=== PATIENT | female | born 1930 | race Caucasian/White ===

== ENCOUNTER 2018-09-22 04:17 | Inpatient (IN) | payer OTHER | END 2018-09-28 20:15 | disposition home or self-care (01) | LOC: JER 04:17 → JERBED 06:56 → J4W 21:38 ==

== ENCOUNTER 2018-11-05 04:13 | Emergency (ER) | payer OTHER | END 2018-11-05 16:53 | disposition home or self-care (01) | LOC: JER 04:13 ==

== ENCOUNTER 2018-11-11 23:39 | Inpatient (IN) | payer OTHER ==
--- NOTE | 2018-11-12 03:19 | PDOC ---
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 Patient states her severe lower back pain began yesterday. Patient also states she has never experienced pain this severe in the past. She also endorses multiple sensory abnormalities in her right leg. The patient denies any fevers or trauma. She denies any difficulty controlling her bowel or bladder. PCP: Sidney Rasheed PSH: Left Knee surgery Allergies: NKA, NKDA Social Hx: Denies smoking, drinking, or other substance usage. Past History - Past Medical History Allergies/Adverse Reactions: Allergies Allergy/AdvReac Type Severity Reaction Status Date / Time No Known Allergies Allergy Verified 11/12/18 01:34 Home Medications: Ambulatory Orders Alendronate Sodium [Binosto] 70 mg PO WEEKLY 09/22/18 Calcium Carbonate/Vitamin D3 [Calcium 600 + Vit D Tablet] 1 each PO BID Cyanocobalamin [Vitamin B12 -] 1,000 mcg PO DAILY 09/22/18 Fenofibrate Nanocrystallized [Fenofibrate] 48 mg PO DAILY 09/22/18 Omeprazole 20 mg PO DAILY 09/22/18 Pravastatin Sodium [Pravachol -] 80 mg PO HS 09/22/18 Amlodipine Besylate [Norvasc -] 10 mg PO DAILY tablet 09/26/18 Aspirin Coated [Ecotrin -] 81 mg PO DAILY tablet.ec 09/26/18 Glyburide [Micronase -] 5 mg PO DAILY@0700 tablet 09/26/18 Levothyroxine [Synthroid -] 25 mcg PO DAILY@0700 tablet 09/26/18 Furosemide [Lasix -] 20 mg PO ASDIR 11/05/18 Hydralazine HCl 50 mg PO TID 11/05/18 COPD: No Diabetes: Yes GI Disorders: Yes (GERD) HTN: Yes Hypercholesterolemia: Yes Thyroid Disease: Yes (Hypothyroidism) - Surgical History Orthopedic Surgery: Yes (L knee Replacement) - Suicide/Smoking/Psychosocial Hx Smoking History: Never smoked Have you smoked in the past 12 months: No If you are a former smoker, when did you quit?: 25 years ago 'Breaking Loose' booklet given: 09/22/18 Hx Alcohol Use: No Drug/Substance Use Hx: No Hx Substance Use Treatment: No Review of Systems - Review of Systems Able to Perform ROS?: Yes Comments:: CONSTITUTIONAL: Absent: fever, no chills, no fatigue EYES: Absent: visual changes ENT: Absent: ear pain, no sore throat CARDIOVASCULAR: Absent: chest pain, no palpitations RESPIRATORY: Absent: cough, no SOB GI: Absent: abdominal pain, no nausea, no vomiting, no constipation, no diarrhea GENITOURINARY: Absent: dysuria, no frequency, no hematuria MUSKULOSKELETAL: Present: Back pain Absent: no arthralgia, no myalgia SKIN: Absent: rash NEURO: Absent: headache *Physical Exam - Vital Signs Last Vital Signs Temp Pulse Resp BP Pulse Ox 97.8 F 93 H 23 H 113/69 96 11/11/18 23:55 11/11/18 23:55 11/11/18 23:55 11/11/18 23:55 11/11/18 23:55 - Physical Exam Comments: GENERAL: Patient is lying in the bed but is sad and has a significant amount of pain. HEENT: Normocephalic, atraumatic. PERRL, EOM intact. CARDIOVASCULAR: Normal S1, S2. Regular rate and rhythm. PULMONARY: Mild evidence of respiratory distress. Lungs clear to auscultation bilaterally. No wheezing, rales or rhonchi. ABDOMEN: Soft, non-distended, non-tender. EXTREMITIES: Normal ROM in all four extremities. No gross deformities. SKIN: Warm, dry. No rash NEUROLOGICAL: Alert, awake, appropriate. Cranial nerves 2-12 intact. No deficits to light touch in face and upper extremities. The patient has decreased sensation in her right leg. No motor deficits in the in face, upper extremities and lower extremities. Normal speech. Toes are down-going bilaterally. Rectal Exam: positive: normal rectal tone ED Treatment Course - LABORATORY CBC & Chemistry Diagram: 11/12/18 04:15 11/12/18 04:15 - RADIOLOGY Radiograph Interpretation: Pelvis CT: EXAM: PELVIS CT WITHOUT CONTRAST HISTORY: Trauma COMPARISON: None. FINDINGS: The pelvic small small bowel is normal. Colonic diverticulosis is noted without diverticulitis The appendix is normal. The uterus and adnexal structures are normal. Urinary bladder is unremarkable. There is no pelvic free fluid. No discrete pelvic lymphadenopathy is identified. There is no fracture. No soft tissue hematoma. There is severe osteoarthritis of the right hip mild to moderate osteoporosis of the left hip. The osseous pubis is noted. There are prominent degenerative changes of the lumbar spine and sacroiliac joints. IMPRESSION: No fracture Lumbar CT: EXAM: LUMBAR SPINE CT W/O CONTRAST HISTORY: Rule out fracture COMPARISON: None. FINDINGS: There is no fracture or paraspinal hematoma. Multilevel moderate degenerative changes are noted with mild degenerative listheses. There is mild bilateral neuroforaminal narrowing at L4-5 level secondary to facet joint arthrosis and geometric distortion from a anterolisthesis. There is mild central canal narrowing and moderate bilateral neural from narrowing of L5/S1 level due to bulging disc osteophyte complex, facet joint arthrosis and geometric distortion from an anterolisthesis. 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 IMPRESSION: No fracture. 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 Patient states her severe lower back pain began yesterday. Patient also states she has never experienced pain this severe in the past. She also endorses multiple sensory abnormalities in her right leg. The patient denies any fevers or trauma. She denies any difficulty controlling her bowel or bladder. Vital Signs Temp Pulse Resp BP Pulse Ox 97.8 F 93 H 23 H 113/69 96 11/11/18 23:55 11/11/18 23:55 11/11/18 23:55 11/11/18 23:55 11/11/18 23:55 - Patient appears to be in her standard respiratory state. She reports that she always needs oxygen to have a good saturation. DDx IBNLT: Lumbar vs sacral vertebral fx, hip fx, compressed nerve, cauda equina /conus medularis. Plan: Labs, Urine, CT, XR, analgesia, re-assess. Labs show CKD which appears to be at her baseline. Urine: Clean CT Pelvis: There is severe osteoarthritis of the right hip - No acute fx CT Lumbar: Multilevel moderate degenerative changes are noted with mild degenerative listheses. There is mild bilateral neuroforaminal narrowing at L4-5 level secondary to facet joint arthrosis and geometric distortion from a anterolisthesis. There is mild central canal narrowing and moderate bilateral neural from narrowing of L5/S1 level due to bulging disc osteophyte complex, facet joint arthrosis and geometric distortion from an anterolisthesis. 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 IMPRESSION: No fracture. Disposition: Admit to hospital for inability to ambulate, social work consult, Lumbar/pelvis MRI and pain control. - Call placed to Dr. Rasheed's service for admission at 6:30 am - Service said they will call us back. - Signing out patient to Dr. Jaime to give report to Dr. Rasheed and complete admission to the hospital. *DC/Admit/Observation/Transfer Diagnosis at time of Disposition: Inability to ambulate due to right hip Lower back pain Qualifiers: Chronicity: acute Back pain laterality: right Sciatica presence: with sciatica Sciatica laterality: sciatica of right side Qualified Code(s): M54.41 - Lumbago with sciatica, right side - Discharge Dispostion Condition at time of disposition: Stable Decision to Admit order: Yes - Referrals Referrals: Sidney Rasheed RES [Primary Care Provider] - - Patient Instructions - Post Discharge Activity
[2018-11-12] MEDS ORDERED: LIDOCAINE 5% TOPICAL PATCH TP ONE (03:28)
[2018-11-12] MEDS ORDERED: ACETAMINOPHEN 1000 MG/100 ML VIAL (NON FORMULARY) IVPB ONE (03:28)
[2018-11-12] MEDS ORDERED: ACETAMINOPHEN INJECTION 100 ML IVPB ONE (04:00)
[2018-11-12] MEDS ORDERED: LIDOCAINE 5% TOPICAL PATCH ONE (04:01)
--- NOTE | 2018-11-12 04:01 | PDOC ---
Attending Attestation - Resident Resident Name: Todd Camargo - ED Attending Attestation I have performed the following: I have examined & evaluated the patient, The case was reviewed & discussed with the resident, I agree w/resident's findings & plan - HPI HPI: 11/12/18 05:04 see resident hpi - Physicial Exam PE: 11/12/18 05:05 agree with resident exam - Medical Decision Making 11/12/18 05:05 87 yo female with point tenderness at L-S region plan for CT scan /labs lidoderm patch , iv tylenol
[2018-11-12 04:37] LABS: EOS % 2.3 % (0-4.5); HEMATOCRIT 32.1 % (32.4-45.2); HEMOGLOBIN 10.4 GM/dL (10.7-15.3); LYMPH % 16.5 % (8-40); MCH 28.4 pg (25.7-33.7); MCHC 32.4 g/dl (32.0-36.0); MEAN CELL VOLUME 87.6 fl (80-96); MEAN PLT VOLUME 7.9 fl (7.5-11.1); MONO % 9.7 % (3.8-10.2); NEUT % 70.5 % (42.8-82.8); PLATELET COUNT 283 K/MM3 (134-434); RBC 3.66 M/mm3 (3.60-5.2); WHITE BLOOD COUNT 7.2 K/mm3 (4.0-10.0)
[2018-11-12 04:55] LABS: ALBUMIN 3.4 g/dl (3.4-5.0); BILIRUBIN,TOTAL 0.2 mg/dL (0.2-1); BLOOD UREA NITROGEN 68.9 mg/dL (7-18); CALCIUM 8.2 mg/dL (8.5-10.1); CREATININE 2.1 mg/dL (0.55-1.3); POTASSIUM 4.1 mmol/L (3.5-5.1); TOT PROT 6.6 g/dl (6.4-8.2)
[2018-11-12 04:59] LABS: HYALINE CASTS 1 /lpf (0-8); URINE APPEARANCE CLEAR; URINE BACTERIA 15.9 /hpf (NEGATIVE); URINE BILIRUBIN NEGATIVE (NEGATIVE); URINE COLOR YELLOW; URINE GLUCOSE (UA) NEGATIVE (NEGATIVE); URINE KETONE NEGATIVE (NEGATIVE); URINE LEUK ESTERASE TRACE (NEGATIVE); URINE NITRITE NEGATIVE (NEGATIVE); URINE PROTEIN 2+ (NEGATIVE); URINE RBC 1 /hpf (0-4); URINE UROBILINOGEN 0.2 mg/dL (0.2-1.0); URINE WBC 6 /hpf (0-5)
[2018-11-12] MEDS ORDERED: morphine CARPU-JECT 4 MG/1 ML DISP.SYRIN IVPUSH ONE (06:37)
[2018-11-12] MEDS ORDERED: MORPHINE SULFATE 2 MG/ML VIAL ONE (06:41)
--- NOTE | 2018-11-12 07:20 | PDOC ---
*Physical Exam - Vital Signs Last Vital Signs Temp Pulse Resp BP Pulse Ox 97.5 F L 79 19 138/88 95 11/12/18 06:27 11/12/18 06:27 11/12/18 06:27 11/12/18 06:27 11/12/18 06:27 - Physical Exam Comments: MDM: *Reviewed vital signs, nursing notes, and prior visit documentation (if available). Received sign out from resident Dr. Camargo. In short, pt is a 87 y/o female presenting with new onset lower back pain radiating to right lower extremity. No trauma, fevers, bowel/bladder incontinence. CT revealed osteoarthritic changes with mild central canal narrowing at L5/S1 level. Pt to be admitted to Dr. Sidney Banegas service for inability to ambulate and to rule out possible cord compression. Lives in hospital for special [facility] complex. Awaiting call back from Dr. Rasheed for admission. 08:[address] Rasheed. Will admit pt to med/surg on obs status. Humberto Jaime M.D., PGY2 Emergency Medicine Resident <Humberto Jaime - Last Filed: 11/12/18 10:37> - Vital Signs Last Vital Signs Temp Pulse Resp BP Pulse Ox 97.5 F L 79 19 138/88 95 11/12/18 06:27 11/12/18 06:27 11/12/18 06:27 11/12/18 06:27 11/12/18 06:27 <Shaw Silva - Last Filed: 11/12/18 10:38> ED Treatment Course - LABORATORY CBC & Chemistry Diagram: 11/12/18 04:15 11/12/18 04:15 - ADDITIONAL ORDERS Additional order review: Laboratory Results 11/12/18 11/12/18 04:15 04:10 Sodium 138 Potassium 4.1 Chloride 107 Carbon Dioxide 19 L Anion Gap 12 BUN 68.9 H Creatinine 2.1 H Est GFR (CKD-EPI)AfAm 24.09 Est GFR (CKD-EPI)NonAf 20.79 Random Glucose 157 H Calcium 8.2 L Total Bilirubin 0.2 AST 24 ALT 26 Alkaline Phosphatase 82 Total Protein 6.6 Albumin 3.4 Urine Color Yellow Urine Appearance Clear Urine pH 5.0 Ur Specific [place] 1.009 L Urine Protein 2+ H Urine Glucose (UA) Negative Urine Ketones Negative Urine Blood Negative Urine Nitrite Negative Urine Bilirubin Negative Urine Urobilinogen 0.2 Ur Leukocyte Esterase Trace Urine WBC (Auto) 6 Urine RBC (Auto) 1 Urine Casts (Auto) 1 U Epithel Cells (Auto) 2.0 Urine Bacteria (Auto) 15.9 11/12/18 04:15 RBC 3.66 MCV 87.6 MCHC 32.4 RDW 16.0 H MPV 7.9 Neutrophils % 70.5 Lymphocytes % 16.5 D Monocytes % 9.7 Eosinophils % 2.3 Basophils % 1.0 - Medications Given in the ED: ED Medications Discontinued Medications Generic Name Dose Route Start Last Admin Trade Name Flory PRN Reason Stop Dose Admin Acetaminophen 1,000 mg 11/12/18 03:28 11/12/18 04:20 Ofirmev Injection - IVPB 11/12/18 03:29 1,000 mg ONCE ONE Administration Lidocaine 1 patch 11/12/18 03:28 11/12/18 04:18 Lidoderm Patch - TP 11/12/18 03:29 1 patch ONCE ONE Administration Morphine Sulfate 2 mg 11/12/18 06:37 11/12/18 06:44 Morphine Injection - IVPUSH 11/12/18 06:38 2 mg ONCE ONE Administration <Humberto Jaime - Last Filed: 11/12/18 10:37> - LABORATORY CBC & Chemistry Diagram: 11/12/18 04:15 11/12/18 04:15 - ADDITIONAL ORDERS Additional order review: Laboratory Results 11/12/18 11/12/18 04:15 04:10 Sodium 138 Potassium 4.1 Chloride 107 Carbon Dioxide 19 L Anion Gap 12 BUN 68.9 H Creatinine 2.1 H Est GFR (CKD-EPI)AfAm 24.09 Est GFR (CKD-EPI)NonAf 20.79 Random Glucose 157 H Calcium 8.2 L Total Bilirubin 0.2 AST 24 ALT 26 Alkaline Phosphatase 82 Total Protein 6.6 Albumin 3.4 Urine Color Yellow Urine Appearance Clear Urine pH 5.0 Ur Specific [place] 1.009 L Urine Protein 2+ H Urine Glucose (UA) Negative Urine Ketones Negative Urine Blood Negative Urine Nitrite Negative Urine Bilirubin Negative Urine Urobilinogen 0.2 Ur Leukocyte Esterase Trace Urine WBC (Auto) 6 Urine RBC (Auto) 1 Urine Casts (Auto) 1 U Epithel Cells (Auto) 2.0 Urine Bacteria (Auto) 15.9 11/12/18 04:15 RBC 3.66 MCV 87.6 MCHC 32.4 RDW 16.0 H MPV 7.9 Neutrophils % 70.5 Lymphocytes % 16.5 D Monocytes % 9.7 Eosinophils % 2.3 Basophils % 1.0 - Medications Given in the ED: ED Medications Discontinued Medications Generic Name Dose Route Start Last Admin Trade Name Flory PRN Reason Stop Dose Admin Acetaminophen 1,000 mg 11/12/18 03:28 11/12/18 04:20 Ofirmev Injection - IVPB 11/12/18 03:29 1,000 mg ONCE ONE Administration Lidocaine 1 patch 11/12/18 03:28 11/12/18 04:18 Lidoderm Patch - TP 11/12/18 03:29 1 patch ONCE ONE Administration Morphine Sulfate 2 mg 11/12/18 06:37 11/12/18 06:44 Morphine Injection - IVPUSH 11/12/18 06:38 2 mg ONCE ONE Administration <Shaw Silva - Last Filed: 11/12/18 10:38> *DC/Admit/Observation/Transfer <Humberto Jaime - Last Filed: 11/12/18 10:37> <Shaw Sivla - Last Filed: 11/12/18 10:38> Diagnosis at time of Disposition: Inability to ambulate due to right hip, Renal insufficiency Lower back pain Qualifiers: Chronicity: acute Back pain laterality: right Sciatica presence: with sciatica Sciatica laterality: sciatica of right side Qualified Code(s): M54.41 - Lumbago with sciatica, right side - Discharge Dispostion Condition at time of disposition: Stable
--- NOTE | 2018-11-12 13:54 | HP ---
Admitting History and Physical - Primary Care Physician PCP: ludy garcia - Admission Chief Complaint: pt c/o of rt greater than lt leg pin needles w inability to flex rt foot. and unsteady gait w urine incontinenceover 3 wks now. feels weak n[place] History Source: Patient - Past Medical History Cardiovascular: Yes: CHF (pt with dil pacreatic duct was waiting mrcp out pt never got to it), HTN, Other (? cp) Gastrointestinal: Yes: Other (ruq pain to deep palp) ...: No Heme/Onc: Yes: Other (h/o lupus) Musculoskeletal: Yes: Bursitis, Chronic low back pain Rheumatology: Yes: Lupus Endocrine: Yes: Diabetes Mellitus, Hypothyroidism - Past Surgical History Past Surgical History: Yes: None Additional Past Surgical History: c sect x 2 rectal prolapse sx - Smoking History Smoking history: Never smoked Have you smoked in the past 12 months: No If you are a former smoker, when did you quit?: 25 years ago - Alcohol/Substance Use Hx Alcohol Use: No History of Substance Use: reports: None - Social History Usual Living Arrangement: Yes: With Child ADL: Independent History of Recent Travel: No Home Medications - Allergies Allergies/Adverse Reactions: Allergies Allergy/AdvReac Type Severity Reaction Status Date / Time No Known Allergies Allergy Verified 11/12/18 01:34 - Home Medications Home Medications: Ambulatory Orders Alendronate Sodium [Binosto] 70 mg PO WEEKLY 09/22/18 Calcium Carbonate/Vitamin D3 [Calcium 600 + Vit D Tablet] 1 each PO BID Cyanocobalamin [Vitamin B12 -] 1,000 mcg PO DAILY 09/22/18 Fenofibrate Nanocrystallized [Fenofibrate] 48 mg PO DAILY 09/22/18 Omeprazole 20 mg PO DAILY 09/22/18 Pravastatin Sodium [Pravachol -] 80 mg PO HS 09/22/18 Amlodipine Besylate [Norvasc -] 10 mg PO DAILY tablet 09/26/18 Aspirin Coated [Ecotrin -] 81 mg PO DAILY tablet.ec 09/26/18 Glyburide [Micronase -] 5 mg PO DAILY@0700 tablet 09/26/18 Levothyroxine [Synthroid -] 25 mcg PO DAILY@0700 tablet 09/26/18 Furosemide [Lasix -] 20 mg PO ASDIR 09/17/19 Hydralazine HCl 50 mg PO TID 11/05/18 Family Medical History Family History: Unremarkable Review of Systems - Review of Systems Constitutional: reports: Malaise, Weakness, Other (l/s radiculapathy?) HENT: reports: No Symptoms Neck: reports: No Symptoms Cardiovascular: reports: No Symptoms Respiratory: reports: No Symptoms Gastrointestinal: reports: No Symptoms Genitourinary: reports: No Symptoms Breasts: reports: No Symptoms Reported Musculoskeletal: reports: Back Pain, Muscle Weakness Integumentary: reports: No Symptoms Neurological: reports: Weakness Endocrine: reports: No Symptoms Hematology/Lymphatic: reports: No Symptoms Psychiatric: reports: No Symptoms Physical Examination Vital Signs: Vital Signs Temperature 97.5 F L 11/12/18 06:27 Pulse Rate 79 11/12/18 06:27 Respiratory Rate 11/12/18 06:27 Blood Pressure 138/88 11/12/18 06:27 O2 Sat by Pulse Oximetry (%) 95 11/12/18 06:27 Constitutional: Yes: Moderate Distress Eyes: Yes: WNL HENT: Yes: WNL Neck: Yes: WNL Cardiovascular: Yes: WNL Respiratory: Yes: WNL Gastrointestinal: Yes: WNL ...Rectal Exam: Yes: WNL, Deferred, Other Breast(s): Yes: WNL Musculoskeletal: Yes: Back Pain Extremities: Yes: WNL Edema: Yes Edema: LLE: 1+, RLE: 1+ Peripheral Pulses WNL: Yes Integumentary: Yes: WNL Neurological: Yes: Numbness, Tingling, Unsteady Gait, Other (legs) Psychiatric: Yes: WNL Labs: CBC, BMP 11/12/18 04:15 11/12/18 04:15 Problem List - Problems (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 Assessment/Plan mri spine nuerosx to see pt pain scale5 control andrez diuerisi ? hold norvasce ? leg edema chk labs in am neuro leg chks
[2018-11-12] MEDS ORDERED: hydrALAZINE HCL 50 MG TABLET (FP) PO ONE (14:52)
[2018-11-12 17:50] VITALS: BMI 22.1
[2018-11-12] MEDS: METOCLOPRAMIDE HCL 10 MG TABLET (FP) PO SCH ×2 (17:57→21:41)
[2018-11-12] MEDS: LIDOCAINE PATCH REMOVAL MC SCH ×2 (21:41)
[2018-11-12] MEDS ORDERED: traMADol HCL 50 MG TABLET PO SCH (22:00)
[2018-11-13] MEDS: LEVOTHYROXINE NA 50 MCG TABLET (FP) PO SCH (06:34)
[2018-11-13] MEDS: glyBURIDE 5 MG TABLET (UD) PO SCH (06:34)
[2018-11-13] MEDS: METOCLOPRAMIDE HCL 10 MG TABLET (FP) PO SCH ×4 (06:34→22:39)
[2018-11-13 08:17] LABS: BASO % 1.1 % (0-2.0); EOS % 4.9 % (0-4.5); HEMATOCRIT 33.4 % (32.4-45.2); HEMOGLOBIN 10.9 GM/dL (10.7-15.3); LYMPH % 13.6 % (8-40); MCH 28.7 pg (25.7-33.7); MCHC 32.6 g/dl (32.0-36.0); MEAN CELL VOLUME 88.1 fl (80-96); MEAN PLT VOLUME 8.3 fl (7.5-11.1); MONO % 8.2 % (3.8-10.2); NEUT % 72.2 % (42.8-82.8); PLATELET COUNT 284 K/MM3 (134-434); RBC 3.79 M/mm3 (3.60-5.2); WHITE BLOOD COUNT 6.9 K/mm3 (4.0-10.0)
[2018-11-13 08:45] LABS: ALBUMIN 3.2 g/dl (3.4-5.0); BILIRUBIN,TOTAL 0.4 mg/dL (0.2-1); BLOOD UREA NITROGEN 63.7 mg/dL (7-18); CALCIUM 8.1 mg/dL (8.5-10.1); CREATININE 1.8 mg/dL (0.55-1.3); POTASSIUM 4.9 mmol/L (3.5-5.1); TOT PROT 6.4 g/dl (6.4-8.2)
[2018-11-13] MEDS: TAMSULOSIN HCL 0.4 MG CAP PO SCH (09:42)
[2018-11-13] MEDS: LIDOCAINE 5% TOPICAL PATCH TP SCH (09:42)
[2018-11-13] MEDS: PANTOPRAZOLE SOD 40 MG SUSPENSION PACKET PO SCH (09:42)
[2018-11-13] MEDS: ASPIRIN COATED 81 MG TABLET.EC PO SCH (09:42)
[2018-11-13] MEDS ORDERED: FUROSEMIDE 20 MG TABLET (FP) PO SCH ×3 (10:00→13:45)
[2018-11-13] MEDS: POLYETHYLENE GLYCOL 3350 119 GM BTL PO SCH (11:26)
--- NOTE | 2018-11-13 12:41 | PN ---
Progress Note (short form) - Note Progress Note: NEUROSURGERY CONSULT DICTATED Chart reviewed Pt examined MRI/CT reviewed H/o pulm HTN on home O2, HTN, HLD, NIDDM, and hypothyroidism c/o R > L leg pain x 6 months. Pain to R buttock, lat thigh, calf, ankle. + paresthesia, and mild weakness. Pain worse last 3-4 weeks. No numbness. Denies B/B incontinence. + constipation. 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
--- NOTE | 2018-11-13 13:11 | PN ---
Progress Note, Physician Chief Complaint: less pain back rt foot pressure redness vss tolerating diet nl bn - Current Medication List Current Medications: Active Medications Aspirin (Ecotrin -) 81 mg PO DAILY [facility] Last Admin: 11/13/18 09:42 Dose: 81 mg Gabapentin (Neurontin -) 100 mg PO TID [facility] Glyburide (Diabeta -) 5 mg PO DAILY@0700 [facility] Last Admin: 11/13/18 06:34 Dose: 5 mg Levothyroxine Sodium (Synthroid -) 50 mcg PO DAILY@0700 [facility] Last Admin: 11/13/18 06:34 Dose: 50 mcg Lidocaine (Lidoderm Patch -) 1 patch TP DAILY [facility] Last Admin: 11/13/18 09:42 Dose: 1 patch Metoclopramide HCl (Reglan -) 5 mg PO ACHS [facility] Last Admin: 11/13/18 06:34 Dose: 5 mg Miscellaneous (Lidoderm Patch Removal) 1 each MC DAILY@2200 [facility] Last Admin: 11/12/18 21:41 Dose: 1 each Miscellaneous (Lidoderm Patch Removal) 1 each MC DAILY@2200 [facility] Last Admin: 11/12/18 21:41 Dose: 1 each Pantoprazole Sodium (Protonix Packets For Oral Suspension -) 40 mg PO DAILY [facility] Last Admin: 11/13/18 09:42 Dose: 40 mg Polyethylene Glycol (Miralax (For Daily Use) -) 17 gm PO DAILY [facility] Last Admin: 11/13/18 11:26 Dose: Not Given Tamsulosin HCl (Flomax -) 0.4 mg PO DAILY@0830 [facility] Last Admin: 11/13/18 09:42 Dose: 0.4 mg Tramadol HCl (Ultram -) 50 mg PO Q12H PRN PRN Reason: BACK PAIN (LEVEL 5-10) - Objective Vital Signs: Vital Signs Temperature 97.7 F 11/13/18 09:37 Pulse Rate 91 H 11/13/18 09:37 Respiratory Rate 20 11/13/18 09:37 Blood Pressure 136/80 11/13/18 09:37 O2 Sat by Pulse Oximetry (%) 92 L 11/12/18 21:00 Constitutional: Yes: No Distress Eyes: Yes: WNL HENT: Yes: WNL Neck: Yes: WNL Cardiovascular: Yes: WNL Respiratory: Yes: WNL Gastrointestinal: Yes: WNL Genitourinary: Yes: WNL Breast(s): Yes: WNL Musculoskeletal: Yes: Other (rt foot barrier intact) Extremities: Yes: Erythema Edema: Yes Edema: LLE: 1+, RLE: 1+ Peripheral Pulses WNL: Yes Wound/Incision: Yes: Clean/Dry Neurological: Yes: WNL ...Motor Strength: WNL Psychiatric: Yes: WNL Labs: CBC, BMP 11/13/18 07:03 11/13/18 07:03 Problem List - Problems (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 Assessment/Plan podiatr to see pt chk labs in am p/t eval
[2018-11-13] MEDS: GABAPENTIN 100 MG CAPSULE (FP) PO SCH ×2 (13:17→22:38)
--- NOTE | 2018-11-13 13:33 | CONSULT ---
Consult Consult Specialty:: Nephrology Reason for Consultation:: CKD - History of Present Illness Chief Complaint: back pain and right leg pain History of Present Illness: Pt is an 87 year old female with pmhx of ckd, htn, hld, dm and hypothyroidism who presents to the ER with back pain and which radiates down her right leg. I was called to evaluate her for CKD and for volume status. She had been on lasix in the past and the dose was decreased to 20 mg twice per week. She does complains of some edema however denies shortness of breath. She is awake and alert. She denies dysuria. - History Source History Provided By: Patient, Medical Record - Past Medical History Cardio/Vascular: Yes: CHF (pt with dil pacreatic duct was waiting mrcp out pt never got to it), HTN, Other (? cp) Gastrointestinal: Yes: Other (ruq pain to deep palp) ...: No Musculoskeletal: Yes: Bursitis, Chronic low back pain Rheumatology: Yes: Lupus Endocrine: Yes: Diabetes Mellitus, Hypothyroidism - Past Surgical History Past Surgical History: Yes: None - Alcohol/Substance Use Hx Alcohol Use: No History of Substance Use: reports: None - Smoking History Smoking history: Former smoker Have you smoked in the past 12 months: No If you are a former smoker, when did you quit?: 25 years ago - Social History ADL: Independent History of Recent Travel: No Home Medications - Allergies Allergies/Adverse Reactions: Allergies Allergy/AdvReac Type Severity Reaction Status Date / Time No Known Allergies Allergy Verified 11/12/18 01:34 - Home Medications Home Medications: Ambulatory Orders Alendronate Sodium [Binosto] 70 mg PO WEEKLY 09/22/18 Calcium Carbonate/Vitamin D3 [Calcium 600 + Vit D Tablet] 1 each PO BID Cyanocobalamin [Vitamin B12 -] 1,000 mcg PO DAILY 09/22/18 Fenofibrate Nanocrystallized [Fenofibrate] 48 mg PO DAILY 09/22/18 Omeprazole 20 mg PO DAILY 09/22/18 Pravastatin Sodium [Pravachol -] 80 mg PO HS 09/22/18 Amlodipine Besylate [Norvasc -] 10 mg PO DAILY tablet 09/26/18 Aspirin Coated [Ecotrin -] 81 mg PO DAILY tablet.ec 09/26/18 Glyburide [Micronase -] 5 mg PO DAILY@0700 tablet 09/26/18 Levothyroxine [Synthroid -] 25 mcg PO DAILY@0700 tablet 09/26/18 Furosemide [Lasix -] 20 mg PO ASDIR 11/05/18 Hydralazine HCl 50 mg PO TID 11/05/18 Review of Systems - Review of Systems Constitutional: reports: Malaise Eyes: reports: No Symptoms HENT: reports: No Symptoms Neck: reports: No Symptoms Cardiovascular: reports: No Symptoms Respiratory: reports: No Symptoms Gastrointestinal: reports: No Symptoms Genitourinary: reports: No Symptoms Musculoskeletal: reports: Back Pain, Extremity Pain Neurological: reports: No Symptoms Endocrine: reports: No Symptoms Hematology/Lymphatic: reports: No Symptoms Psychiatric: reports: No Symptoms Physical Exam Vital Signs: Vital Signs Temperature 97.7 F 11/13/18 09:37 Pulse Rate 91 H 11/13/18 09:37 Respiratory Rate 20 11/13/18 09:37 Blood Pressure 136/80 11/13/18 09:37 O2 Sat by Pulse Oximetry (%) 92 L 11/12/18 21:00 Constitutional: Yes: Calm Eyes: Yes: Conjunctiva Clear HENT: Yes: Atraumatic Neck: Yes: Supple Cardiovascular: Yes: S1, S2 Respiratory: Yes: CTA Bilaterally Gastrointestinal: Yes: Soft Renal/: Yes: WNL Musculoskeletal: Yes: WNL Edema: Yes Edema: LLE: 1+, RLE: 1+ Neurological: Yes: Oriented Psychiatric: Yes: Oriented Labs: CBC, BMP 11/13/18 07:03 11/13/18 07:03 Imaging - Results MRI: Report Reviewed Problem List - Problems (1) Renal insufficiency Code(s): N28.9 - DISORDER OF KIDNEY AND URETER, UNSPECIFIED (2) Diabetes 1.5, managed as type 2 Code(s): E13.9 - OTHER SPECIFIED DIABETES MELLITUS WITHOUT COMPLICATIONS Assessment/Plan Current Medications Generic Name Dose Route Start Last Admin Trade Name Freq PRN Reason Stop Dose Admin Aspirin 81 mg 11/13/18 10:00 11/13/18 09:42 Ecotrin - PO 81 mg DAILY ERNIE Administration Gabapentin 100 mg 11/13/18 14:00 11/13/18 13:17 Neurontin - PO 100 mg TID ERNIE Administration Glyburide 5 mg 11/13/18 07:00 11/13/18 06:34 Diabeta - PO 5 mg DAILY@0700 ERNIE Administration Levothyroxine Sodium 50 mcg 11/13/18 07:00 11/13/18 06:34 Synthroid - PO 50 mcg DAILY@0700 ERNIE Administration Lidocaine 1 patch 11/13/18 10:00 11/13/18 09:42 Lidoderm Patch - TP 1 patch DAILY ERNIE Administration Metoclopramide HCl 5 mg 11/12/18 16:30 11/13/18 13:17 Reglan - PO 5 mg ACHS ERNIE Administration Miscellaneous 1 each 11/12/18 22:00 11/12/18 21:41 Lidoderm Patch Removal MC 1 each DAILY@2200 ERNIE Administration Miscellaneous 1 each 11/12/18 22:00 11/12/18 21:41 Lidoderm Patch Removal MC 1 each DAILY@0 ERNIE Administration Pantoprazole Sodium 40 mg 11/13/18 10:00 11/13/18 09:42 Protonix Packets For Oral Suspension - PO 40 mg DAILY ERNIE Administration Polyethylene Glycol 17 gm 11/13/18 10:00 11/13/18 11:26 Miralax (For Daily Use) - PO Not Given DAILY [facility] Tamsulosin HCl 0.4 mg 11/13/18 08:30 11/13/18 09:42 Flomax - PO 0.4 mg DAILY@0830 ERNIE Administration Tramadol HCl 50 mg 11/12/18 21:24 Ultram - PO Q12H PRN BACK PAIN (LEVEL 5-10) IMPRESSION back pain CKD H/O lupus proteinuria abdominal sono shows atrophic right kidney pleural effusions Plan - can resume lasix 20 mg po q 48 hrs - monitor volume status - she does have small effusions on mri - repeat labs in am - avoid nsaids
--- NOTE | 2018-11-13 16:06 | CONS ---
DATE OF CONSULTATION: DATE OF DICTATION: 11/13/2018 CHIEF COMPLAINT: Right L5 radiculopathy. HISTORY OF PRESENT ILLNESS: The patient is an 87-year-old right-handed female with history of pulmonary hypertension, hypertension, hypercholesterolemia, diabetes , and hypothyroidism, who complains of right greater than left lower extremity pain for the past 6 months. Her pain radiates to her right buttock, lateral thigh, calf, and ankle. This is associated with paresthesia of her right foot and right leg. She also has weakness in her right leg. Her walking has gotten worse in the last couple weeks because of the severe pain. She denies leg numbness. She denies bowel or bladder incontinence. She does have some constipation. Her pain is worse with getting up and walking and is better with lying down. Past medical history is significant for pulmonary hypertension, non-insulin- dependent diabetes, hypothyroidism, hypertension, hypercholesterolemia, and lower back pain. Current medications include Lidoderm patch, Flomax, baby aspirin, Ultram, Reglan , MiraLax, glyburide, Protonix, Synthroid. There is no known drug allergy. Family history is noncontributory. In terms of social history, she is retired, she lives at home. She does not smoke or drink. Review of systems is otherwise negative for other major constitutional, head, neck, cardiovascular, pulmonary, gastrointestinal, genitourinary, endocrinological, neurological, or psychological problem except for the above. PHYSICAL EXAMINATION: General: She is awake and alert. She is sitting up in the bed with oxygen via nasal cannula. Vital Signs: O2 saturation is 92%, temperature is 97.7, blood pressure is 136/ 80, with pulse rate 91. HEENT: She is normocephalic, atraumatic. Anicteric. Neck: Supple. Coronary: Regular rhythm. Lungs: Clear bilaterally. Abdomen: Benign. Extremities: No signs of DVT. Neurologic: She is awake and alert, oriented x4. Her speech is intact. Cranial nerve examination is intact, 2-12. Motor examination shows 4+/5 strength of the bilateral upper and lower extremities, with the exception of right extensor hallucis longus, tibialis anterior, foot inversion, foot eversion, and gastrocnemius on the right, which is 4-. Sensory examination shows diminished sensation to pinprick and vibratory sensation in right L5 distribution. Examination of the lower back shows mild paraspinal muscle spasm and right sciatic notch tenderness. She has a positive straight-leg raise on the right at about 45 degrees. Laboratory examination demonstrated a white blood count of 6.9, hemoglobin 33.4 , and platelet count 284,000. BUN 63.7, creatinine 1.8, glucose 109. Urinalysis shows trace leukocyte esterase, there are 6 WBC and 1 WBC. Urine culture is contaminated with multiple organisms. CT scan of the lumbar spine demonstrated multilevel degenerative disk disease and facet hypertrophy. The facet hypertrophy is most notable at the mid lower lumbar spine. There is L4-5 spondylolisthesis with associated facet hypertrophy, which results in moderate lateral recess stenosis, right greater than left. There is also L5-S1 degenerative space narrowing with left greater than right L5-S1 lateral recess stenosis. MRI of the lumbar spine confirmed the CT scan findings, and noted more noticeable L4-5 and L5-S1 spondylolisthesis with associated moderate right greater than left L4-5 foraminal narrowing, as well as marked left L5-S1 lateral recess stenosis greater than right. IMPRESSION: 1. L4-5 and L5-S1 spondylolisthesis with lateral recess and foraminal stenosis , but mild central stenosis only. 2. Clinical right L5 radiculopathy. 3. Wnp-cvxganw-xvnqiwklo diabetes. 4. Pulmonary hypertension. 5. Hypothyroidism. RECOMMENDATIONS: The patient presents with several-month history of lower back pain and right-sided sciatica. She also has associated with weakness and paresthesia of the right lower extremity. Her pain pattern has worsened over the past few weeks. She has had difficulty ambulating. Her examination demonstrated right L5 radiculopathy, which corresponds to her CT and MRI findings of L4-5 and L5-S1 spondylolisthesis. Because of stenosis is more noticeable on the right at L4-5 , I believe that to be the cause of her pain generated. Of course, gabapentin 100 mg 3 times a day should be considered. A short pulse of oral steroid may also be helpful if not medically contraindicated. If medical measured do not control her symptoms adequately, she could consider right-sided epidural steroid injection under fluoroscopic guidance at L4-5 level. The pros and cons of treatment approaches were discussed with patient at bedside. All questions were answered. KEIKO RUSSO M.D. [id number] MTDD
[2018-11-13] MEDS: LIDOCAINE PATCH REMOVAL MC SCH ×2 (22:39)
[2018-11-14] MEDS: GABAPENTIN 100 MG CAPSULE (FP) PO SCH ×3 (05:31→21:00)
[2018-11-14] MEDS: METOCLOPRAMIDE HCL 10 MG TABLET (FP) PO SCH ×3 (06:23→16:50)
[2018-11-14] MEDS: LEVOTHYROXINE NA 50 MCG TABLET (FP) PO SCH (06:23)
[2018-11-14] MEDS: glyBURIDE 5 MG TABLET (UD) PO SCH (06:23)
[2018-11-14] MEDS ORDERED: PT OWN MED DRAWER 7, Y5N ONE (07:11)
[2018-11-14 08:03] LABS: CALCIUM 7.7 mg/dL (8.5-10.1); CREATININE 1.5 mg/dL (0.55-1.3); POTASSIUM 4.2 mmol/L (3.5-5.1)
[2018-11-14 08:38] LABS: BASO % 0.6 % (0-2.0); EOS % 2.7 % (0-4.5); HEMATOCRIT 32.5 % (32.4-45.2); HEMOGLOBIN 10.5 GM/dL (10.7-15.3); LYMPH % 9.2 % (8-40); MCH 28.3 pg (25.7-33.7); MCHC 32.4 g/dl (32.0-36.0); MEAN CELL VOLUME 87.3 fl (80-96); MEAN PLT VOLUME 8.1 fl (7.5-11.1); MONO % 8.7 % (3.8-10.2); NEUT % 78.8 % (42.8-82.8); PLATELET COUNT 303 K/MM3 (134-434); RBC 3.72 M/mm3 (3.60-5.2); RDW 16.1 % (11.6-15.6); WHITE BLOOD COUNT 9.1 K/mm3 (4.0-10.0)
[2018-11-14] MEDS: PANTOPRAZOLE SOD 40 MG SUSPENSION PACKET PO SCH (09:04)
[2018-11-14] MEDS: TAMSULOSIN HCL 0.4 MG CAP PO SCH (09:04)
[2018-11-14] MEDS: ASPIRIN COATED 81 MG TABLET.EC PO SCH (09:04)
[2018-11-14] MEDS: LIDOCAINE 5% TOPICAL PATCH TP SCH (09:05)
[2018-11-14] MEDS: POLYETHYLENE GLYCOL 3350 119 GM BTL PO SCH (09:06)
[2018-11-14] MEDS: traMADol HCL 50 MG TABLET PO PRN ×2 (09:14→21:34)
--- NOTE | 2018-11-14 10:00 | PN ---
Progress Note (short form) - Note Progress Note: NEUROSURGERY H/o pulm HTN on home O2, HTN, HLD, NIDDM, and hypothyroidism c/o R > L leg pain x 6 months. Still with pain to R buttock, lat thigh, calf, ankle. Top of foot most painful. + paresthesia, and mild weakness. Pain worse last 3-4 weeks. No numbness. Denies B/B incontinence. + constipation. PE: AF, VSS on O2 General- unremarkable; no sign of DVT CN- intact; Motor- 4+-5 except R EHL/TA/ev/inv/gastroc 4- pain limited; Sensation- decreased PP and vibration R L5; DTR- hyporeflexia CT LS spine- L4-5 spondylolisthesis; facet hypertrophy, moderate B 4-5 foramenal stenosis, moderate L L5-S1 lat recess stenosis LS MRI- L4-5 and L5-S1 spondylolisthesis, B moderate L4-5 foramenal narrowing R slightly > L; L L5-S1 moderate to marked stenosis L4-5 and L5-S1 degenerative spondylolisthesis with lat recess and foramenal narrowing but mild central stenosis only T spine MRI- T11-12 C7-T1 DDD; Mild T6 chronic compression deformity Cont Gabapentin for radicular pain, may titrate up to 300 mg tid as needed Could try a short pulse of oral steroid for pain exacerbation if not medically contraindicated PT/rehab Surgical intervention not recommended give age and associated medical conditions If persistent sciatica could consider R L4-5 ANAMIKA for pain management, but would need to be off ASA/NSAIDS/AC for 1 week prior
--- NOTE | 2018-11-14 10:32 | PN ---
Progress Note, Physician History of Present Illness: feels better bun cr best we can do ? d/c in am adir or sprain [facility]or spoke to daughter agrees - Current Medication List Current Medications: Active Medications Aspirin (Ecotrin -) 81 mg PO DAILY [facility] Last Admin: 11/14/18 09:04 Dose: 81 mg Furosemide (Lasix -) 20 mg PO Q2D [facility] Gabapentin (Neurontin -) 100 mg PO TID [facility] Last Admin: 11/14/18 05:31 Dose: 100 mg Glyburide (Diabeta -) 5 mg PO DAILY@0700 [facility] Last Admin: 11/14/18 06:23 Dose: 5 mg Levothyroxine Sodium (Synthroid -) 75 mcg PO DAILY@0700 [facility] Lidocaine (Lidoderm Patch -) 1 patch TP DAILY [facility] Last Admin: 11/14/18 09:05 Dose: 1 patch Metoclopramide HCl (Reglan -) 5 mg PO ACHS [facility] Last Admin: 11/14/18 06:23 Dose: 5 mg Miscellaneous (Lidoderm Patch Removal) 1 each MC DAILY@0 [facility] Last Admin: 11/13/18 22:39 Dose: 1 each Miscellaneous (Lidoderm Patch Removal) 1 each MC DAILY@0 [facility] Last Admin: 11/13/18 22:39 Dose: 1 each Pantoprazole Sodium (Protonix Packets For Oral Suspension -) 40 mg PO DAILY [facility] Last Admin: 11/14/18 09:04 Dose: 40 mg Polyethylene Glycol (Miralax (For Daily Use) -) 17 gm PO DAILY [facility] Last Admin: 11/14/18 09:06 Dose: Not Given Tamsulosin HCl (Flomax -) 0.4 mg PO DAILY@30 [facility] Last Admin: 11/14/18 09:04 Dose: 0.4 mg Tramadol HCl (Ultram -) 50 mg PO Q12H PRN PRN Reason: BACK PAIN (LEVEL 5-10) Last Admin: 11/14/18 09:14 Dose: 50 mg - Objective Vital Signs: Vital Signs Temperature 98.0 F 11/14/18 09:02 Pulse Rate 87 11/14/18 09:02 Respiratory Rate 20 11/14/18 09:02 Blood Pressure 142/71 11/14/18 09:02 O2 Sat by Pulse Oximetry (%) 91 L 11/13/18 21:00 Constitutional: Yes: Calm Eyes: Yes: WNL HENT: Yes: WNL Neck: Yes: WNL, Rigid Respiratory: Yes: WNL Genitourinary: Yes: WNL Breast(s): Yes: WNL Musculoskeletal: Yes: Back Pain Extremities: Yes: WNL Edema: Yes Edema: LLE: 2+, RLE: 2+ Peripheral Pulses WNL: Yes Peripheral Pulses: Left Femoral: 0, Right Femoral: 0 Integumentary: Yes: WNL Neurological: Yes: WNL ...Motor Strength: WNL Psychiatric: Yes: WNL Labs: CBC, BMP 11/14/18 06:30 11/14/18 06:30 Problem List - Problems (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
--- NOTE | 2018-11-14 19:00 | PN ---
Progress Note, Physician History of Present Illness: Pt seen and examined at bedside. She is awake and alert. SHe denies shortness of breath. - Current Medication List Current Medications: Active Medications Aspirin (Ecotrin -) 81 mg PO DAILY [facility] Last Admin: 11/14/18 09:04 Dose: 81 mg Furosemide (Lasix -) 20 mg PO Q2D [facility] Gabapentin (Neurontin -) 100 mg PO TID [facility] Last Admin: 11/14/18 13:56 Dose: 100 mg Glyburide (Diabeta -) 5 mg PO DAILY@0700 [facility] Last Admin: 11/14/18 06:23 Dose: 5 mg Levothyroxine Sodium (Synthroid -) 75 mcg PO DAILY@0700 [facility] Lidocaine (Lidoderm Patch -) 1 patch TP DAILY [facility] Last Admin: 11/14/18 09:05 Dose: 1 patch Miscellaneous (Lidoderm Patch Removal) 1 each MC DAILY@2200 [facility] Last Admin: 11/13/18 22:39 Dose: 1 each Miscellaneous (Lidoderm Patch Removal) 1 each MC DAILY@2200 [facility] Last Admin: 11/13/18 22:39 Dose: 1 each Pantoprazole Sodium (Protonix Packets For Oral Suspension -) 40 mg PO DAILY [facility] Last Admin: 11/14/18 09:04 Dose: 40 mg Polyethylene Glycol (Miralax (For Daily Use) -) 17 gm PO DAILY [facility] Last Admin: 11/14/18 09:06 Dose: Not Given Tamsulosin HCl (Flomax -) 0.4 mg PO DAILY@0830 [facility] Last Admin: 11/14/18 09:04 Dose: 0.4 mg Tramadol HCl (Ultram -) 50 mg PO Q12H PRN PRN Reason: BACK PAIN (LEVEL 5-10) Last Admin: 11/14/18 09:14 Dose: 50 mg - Objective Vital Signs: Vital Signs Temperature 98.4 F 11/14/18 14:32 Pulse Rate 91 H 11/14/18 14:32 Respiratory Rate 20 11/14/18 14:32 Blood Pressure 139/90 11/14/18 14:32 O2 Sat by Pulse Oximetry (%) 92 L 11/14/18 09:00 Constitutional: Yes: Calm Eyes: Yes: Conjunctiva Clear Cardiovascular: Yes: S1, S2 Respiratory: Yes: CTA Bilaterally Gastrointestinal: Yes: Soft Genitourinary: Yes: WNL Musculoskeletal: Yes: Other (leg pain) Edema: Yes Edema: LLE: Trace, RLE: Trace Neurological: Yes: Oriented Psychiatric: Yes: Oriented Labs: CBC, BMP 11/14/18 06:30 11/14/18 06:30 Problem List - Problems (1) Renal insufficiency Code(s): N28.9 - DISORDER OF KIDNEY AND URETER, UNSPECIFIED (2) Diabetes 1.5, managed as type 2 Code(s): E13.9 - OTHER SPECIFIED DIABETES MELLITUS WITHOUT COMPLICATIONS Assessment/Plan Current Medications Generic Name Dose Route Start Last Admin Trade Name Freq PRN Reason Stop Dose Admin Aspirin 81 mg 11/13/18 10:00 11/14/18 09:04 Ecotrin - PO 81 mg DAILY ERNIE Administration Furosemide 20 mg 11/13/18 13:45 Lasix - PO Q2D ERNIE Gabapentin 100 mg 11/13/18 14:00 11/14/18 13:56 Neurontin - PO 100 mg TID ERNIE Administration Glyburide 5 mg 11/13/18 07:00 11/14/18 06:23 Diabeta - PO 5 mg DAILY@0700 ERNIE Administration Levothyroxine Sodium 75 mcg 11/15/18 07:00 Synthroid - PO DAILY@0700 ERNIE Lidocaine 1 patch 11/13/18 10:00 11/14/18 09:05 Lidoderm Patch - TP 1 patch DAILY ERNIE Administration Miscellaneous 1 each 11/12/18 22:00 11/13/18 22:39 Lidoderm Patch Removal MC 1 each DAILY@2200 ERNIE Administration Miscellaneous 1 each 11/12/18 22:00 11/13/18 22:39 Lidoderm Patch Removal MC 1 each DAILY@2200 ERNIE Administration Pantoprazole Sodium 40 mg 11/13/18 10:00 11/14/18 09:04 Protonix Packets For Oral Suspension - PO 40 mg DAILY ERNIE Administration Polyethylene Glycol 17 gm 11/13/18 10:00 11/14/18 09:06 Miralax (For Daily Use) - PO Not Given DAILY ERNIE Tamsulosin HCl 0.4 mg 11/13/18 08:30 11/14/18 09:04 Flomax - PO 0.4 mg DAILY@0830 ERNIE Administration Tramadol HCl 50 mg 11/12/18 21:24 11/14/18 09:14 Ultram - PO 50 mg Q12H PRN Administration BACK PAIN (LEVEL 5-10) IMPRESSION back pain CKD H/O lupus proteinuria abdominal sono shows atrophic right kidney pleural effusions Plan - renal function improving - discussed with pmd, will resume lasix twice a week - pt will monitor volume status and weights - avoid nsaids
[2018-11-14] MEDS: LIDOCAINE PATCH REMOVAL MC SCH ×2 (20:59)
[2018-11-15] MEDS: GABAPENTIN 100 MG CAPSULE (FP) PO SCH ×3 (06:04→21:30)
[2018-11-15] MEDS: glyBURIDE 5 MG TABLET (UD) PO SCH (06:04)
[2018-11-15] MEDS: LEVOTHYROXINE NA 75 MCG TABLET (FP) PO SCH (06:07)
[2018-11-15 07:38] LABS: CALCIUM 7.7 mg/dL (8.5-10.1); CREATININE 1.6 mg/dL (0.55-1.3); POTASSIUM 4.9 mmol/L (3.5-5.1)
[2018-11-15] MEDS: TAMSULOSIN HCL 0.4 MG CAP PO SCH (08:13)
--- NOTE | 2018-11-15 08:15 | PN ---
Progress Note (short form) - Note Progress Note: NEUROSURGERY Pain to R buttock, lat thigh, calf, ankle. Some shoulder pain as well PE: AF, VSS on O2 General- unremarkable; no sign of DVT CN- intact; Motor- 4+-5 except R EHL/TA/ev/inv/gastroc 4- pain limited; Sensation- decreased LT R L5 CT LS spine- L4-5 spondylolisthesis; facet hypertrophy, moderate B 4-5 foramenal stenosis, moderate L L5-S1 lat recess stenosis LS MRI- L4-5 and L5-S1 spondylolisthesis, B moderate L4-5 foramenal narrowing R slightly > L; L L5-S1 moderate to marked stenosis T spine MRI- DDD; chronic T6 compression deformity, no canal compromise L4-5 and L5-S1 degenerative spondylolisthesis with lat recess and foramenal narrowing but mild central stenosis only T spine MRI- T11-12 C7-T1 DDD; Mild T6 chronic compression deformity Cont Gabapentin for radicular pain, may titrate up to 300 mg tid as needed PT/rehab If persistent sciatica could consider R L4-5 ANAMIKA for pain management
[2018-11-15] MEDS: traMADol HCL 50 MG TABLET PO PRN (09:26)
[2018-11-15] MEDS: ASPIRIN COATED 81 MG TABLET.EC PO SCH (09:28)
[2018-11-15] MEDS: POLYETHYLENE GLYCOL 3350 119 GM BTL PO SCH (09:28)
[2018-11-15] MEDS: PANTOPRAZOLE SOD 40 MG SUSPENSION PACKET PO SCH (09:28)
[2018-11-15] MEDS: LIDOCAINE 5% TOPICAL PATCH TP SCH (09:29)
[2018-11-15] MEDS ORDERED: FUROSEMIDE 20 MG TABLET (FP) PO SCH (10:00)
--- NOTE | 2018-11-15 10:01 | DS ---
Physical Examination Vital Signs: Vital Signs Temperature 98.9 F 11/15/18 06:40 Pulse Rate 79 11/15/18 06:40 Respiratory Rate 20 11/15/18 06:40 Blood Pressure 123/77 11/15/18 06:40 O2 Sat by Pulse Oximetry (%) 90 L 11/14/18 21:00 Constitutional: Yes: Well Nourished Eyes: Yes: WNL HENT: Yes: WNL Neck: Yes: WNL Cardiovascular: Yes: WNL Respiratory: Yes: WNL Gastrointestinal: Yes: WNL ...Rectal Exam: Yes: WNL Renal/: Yes: WNL Breast(s): Yes: WNL Edema: Yes Edema: LLE: 1+, RLE: 1+ Peripheral Pulses WNL: Yes Integumentary: Yes: WNL Neurological: Yes: WNL ...Motor Strength: WNL Psychiatric: Yes: WNL Labs: CBC, BMP 11/14/18 06:30 11/15/18 06:10 Discharge Summary Reason For Visit: INABILITY TO AMBULATE DUE TO RIGHT HIP & LOW BACK Current Active Problems Cord compression myelopathy (Acute) Inability to ambulate due to right hip (Acute) Lower back pain (Acute) Renal insufficiency (Acute) Condition: Stable - Instructions Diet, Activity, Other Instructions: cont tx as is lasix every other day 20 mg p/t tx for back l [facility]: [facility] - Home Medications Comprehensive Discharge Medication List: Ambulatory Orders Alendronate Sodium [Binosto] 70 mg PO WEEKLY 09/22/18 Calcium Carbonate/Vitamin D3 [Calcium 600 + Vit D Tablet] 1 each PO BID Cyanocobalamin [Vitamin B12 -] 1,000 mcg PO DAILY 09/22/18 Fenofibrate Nanocrystallized [Fenofibrate] 48 mg PO DAILY 09/22/18 Omeprazole 20 mg PO DAILY 09/22/18 Pravastatin Sodium [Pravachol -] 80 mg PO HS 09/22/18 Amlodipine Besylate [Norvasc -] 10 mg PO DAILY tablet 09/26/18 Aspirin Coated [Ecotrin -] 81 mg PO DAILY tablet.ec 09/26/18 Glyburide [Micronase -] 5 mg PO DAILY@0700 tablet 09/26/18 Levothyroxine [Synthroid -] 25 mcg PO DAILY@0700 tablet 09/26/18 Furosemide [Lasix -] 20 mg PO ASDIR 11/05/18 Hydralazine HCl 50 mg PO TID 11/05/18
--- NOTE | 2018-11-15 10:07 | CONSULT ---
Consult Consult Specialty:: Podiatry Reason for Consultation:: Redness left foot - History of Present Illness Chief Complaint: Painful feet left worse than right. Lower leg pain left worse than right. - History Source History Provided By: Patient - Past Medical History Cardio/Vascular: Yes: CHF (pt with dil pacreatic duct was waiting mrcp out pt never got to it), HTN, Other (? cp) Gastrointestinal: Yes: Other (ruq pain to deep palp) ...: No Musculoskeletal: Yes: Bursitis, Chronic low back pain Rheumatology: Yes: Lupus Endocrine: Yes: Diabetes Mellitus, Hypothyroidism - Past Surgical History Past Surgical History: Yes: None - Alcohol/Substance Use Hx Alcohol Use: No History of Substance Use: reports: None - Smoking History Smoking history: Former smoker Have you smoked in the past 12 months: No If you are a former smoker, when did you quit?: 25 years ago - Social History ADL: Independent History of Recent Travel: No Home Medications - Allergies Allergies/Adverse Reactions: Allergies Allergy/AdvReac Type Severity Reaction Status Date / Time No Known Allergies Allergy Verified 11/12/18 01:34 - Home Medications Home Medications: Ambulatory Orders Alendronate Sodium [Binosto] 70 mg PO WEEKLY 09/22/18 Calcium Carbonate/Vitamin D3 [Calcium 600 + Vit D Tablet] 1 each PO BID Cyanocobalamin [Vitamin B12 -] 1,000 mcg PO DAILY 09/22/18 Fenofibrate Nanocrystallized [Fenofibrate] 48 mg PO DAILY 09/22/18 Omeprazole 20 mg PO DAILY 09/22/18 Pravastatin Sodium [Pravachol -] 80 mg PO HS 09/22/18 Amlodipine Besylate [Norvasc -] 10 mg PO DAILY tablet 09/26/18 Aspirin Coated [Ecotrin -] 81 mg PO DAILY tablet.ec 09/26/18 Glyburide [Micronase -] 5 mg PO DAILY@0700 tablet 09/26/18 Levothyroxine [Synthroid -] 25 mcg PO DAILY@0700 tablet 09/26/18 Furosemide [Lasix -] 20 mg PO ASDIR 11/05/18 Hydralazine HCl 50 mg PO TID 11/05/18 Physical Exam Vital Signs: Vital Signs Temperature 98.9 F 11/15/18 06:40 Pulse Rate 79 11/15/18 06:40 Respiratory Rate 20 11/15/18 06:40 Blood Pressure 123/77 11/15/18 06:40 O2 Sat by Pulse Oximetry (%) 90 L 11/14/18 21:00 Extremities: Yes: Other (b/l calf tenderness, +tender dorsum left foot compared to right foot, +erythema dorsum right foot, no partal of entry noted b/l feet, no wounds noted.) Labs: CBC, BMP 11/14/18 06:30 11/15/18 06:10 Assessment/Plan dvt? arthralgia? r/o dvt stat. b/l foot xrays after dvt r/o. will follow. vascular consult dr. hernandez.
--- NOTE | 2018-11-15 13:14 | PN ---
Progress Note, Physician Chief Complaint: just called lt demetria garcia this am xray o/a changes ortho for jyotsna ? shot hold d/c until ? am tylenol po prn - Current Medication List Current Medications: Active Medications Aspirin (Ecotrin -) 81 mg PO DAILY [facility] Last Admin: 11/15/18 09:28 Dose: 81 mg Furosemide (Lasix -) 20 mg PO Q3D [facility] Last Admin: 11/15/18 09:28 Dose: 20 mg Gabapentin (Neurontin -) 100 mg PO TID [facility] Last Admin: 11/15/18 06:04 Dose: 100 mg Glyburide (Diabeta -) 5 mg PO DAILY@0700 [facility] Last Admin: 11/15/18 06:04 Dose: 5 mg Levothyroxine Sodium (Synthroid -) 75 mcg PO DAILY@0700 [facility] Last Admin: 11/15/18 06:07 Dose: 75 mcg Lidocaine (Lidoderm Patch -) 1 patch TP DAILY [facility] Last Admin: 11/15/18 09:29 Dose: 1 patch Miscellaneous (Lidoderm Patch Removal) 1 each MC DAILY@2199 [facility] Last Admin: 11/14/18 20:59 Dose: 1 each Miscellaneous (Lidoderm Patch Removal) 1 each MC DAILY@2199 [facility] Last Admin: 11/14/18 20:59 Dose: 1 each Pantoprazole Sodium (Protonix Packets For Oral Suspension -) 40 mg PO DAILY [facility] Last Admin: 11/15/18 09:28 Dose: 40 mg Polyethylene Glycol (Miralax (For Daily Use) -) 17 gm PO DAILY [facility] Last Admin: 11/15/18 09:28 Dose: 17 gm Tamsulosin HCl (Flomax -) 0.4 mg PO DAILY@0830 [facility] Last Admin: 11/15/18 08:13 Dose: 0.4 mg - Objective Vital Signs: Vital Signs Temperature 98 F 11/15/18 10:00 Pulse Rate 82 11/15/18 10:00 Respiratory Rate 20 11/15/18 10:00 Blood Pressure 144/77 11/15/18 10:00 O2 Sat by Pulse Oximetry (%) 90 L 11/15/18 09:00 Labs: CBC, BMP 11/14/18 06:30 11/15/18 06:10 Problem List - Problems (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
[2018-11-15] MEDS ORDERED: PT OWN MED DRAWER 7, Y5N ONE (13:27)
[2018-11-15] MEDS: ACETAMINOPHEN 325 MG TABLET (FP) PO PRN ×2 (13:29→18:09)
--- NOTE | 2018-11-15 14:01 | CON.ORTH ---
Consult Reason for Consultation:: left shoulder pain, swelling - Past Medical History Cardio/Vascular: Yes: CHF (pt with dil pacreatic duct was waiting mrcp out pt never got to it), HTN, Other (? cp) Gastrointestinal: Yes: Other (ruq pain to deep palp) ...: No Musculoskeletal: Yes: Bursitis, Chronic low back pain Rheumatology: Yes: Lupus Endocrine: Yes: Diabetes Mellitus, Hypothyroidism - Past Surgical History Past Surgical History: Yes: None - Alcohol/Substance Use Hx Alcohol Use: No History of Substance Use: reports: None - Smoking History Smoking history: Former smoker Have you smoked in the past 12 months: No If you are a former smoker, when did you quit?: 25 years ago - Social History ADL: Independent History of Recent Travel: No Home Medications - Allergies Allergies/Adverse Reactions: Allergies Allergy/AdvReac Type Severity Reaction Status Date / Time No Known Allergies Allergy Verified 11/12/18 01:34 - Home Medications Home Medications: Ambulatory Orders Alendronate Sodium [Binosto] 70 mg PO WEEKLY 09/22/18 Calcium Carbonate/Vitamin D3 [Calcium 600 + Vit D Tablet] 1 each PO BID Cyanocobalamin [Vitamin B12 -] 1,000 mcg PO DAILY 09/22/18 Fenofibrate Nanocrystallized [Fenofibrate] 48 mg PO DAILY 09/22/18 Omeprazole 20 mg PO DAILY 09/22/18 Pravastatin Sodium [Pravachol -] 80 mg PO HS 09/22/18 Amlodipine Besylate [Norvasc -] 10 mg PO DAILY tablet 09/26/18 Aspirin Coated [Ecotrin -] 81 mg PO DAILY tablet.ec 09/26/18 Glyburide [Micronase -] 5 mg PO DAILY@0700 tablet 09/26/18 Levothyroxine [Synthroid -] 25 mcg PO DAILY@0700 tablet 09/26/18 Furosemide [Lasix -] 20 mg PO ASDIR 11/05/18 Hydralazine HCl 50 mg PO TID 11/05/18 Physical Exam for Ortho Vital Signs: Vital Signs Temperature 98 F 11/15/18 10:00 Pulse Rate 82 11/15/18 10:00 Respiratory Rate 20 11/15/18 10:00 Blood Pressure 144/77 11/15/18 10:00 O2 Sat by Pulse Oximetry (%) 90 L 11/15/18 09:00 Labs: CBC, BMP 11/14/18 06:30 11/15/18 06:10 - Upper Extremity Shoulder: Yes: Left, Erythema, Limited ROM, Pain, Swelling, Tenderness, Other ( nvi) Imaging - Results X-ray: Report Reviewed, Image Reviewed Assessment/Plan Pt is an 87 year old female with pmhx of ckd, htn, hld, dm and hypothyroidism who was being d/c'd today and developed swelling, erythema and pain in her left shoulder. Denies any injury or trauma. 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 a/p left shoulder effusion with grade GH jt DJD vs infectious pathology Consent obtained, under sterile technique the left GH joint was aspirated, 20 cc of cloudy fluid was obtained and sent to the lab, procedure tolerated well f/u cell count if non infectious, ok to d/c today and f/u as outpt d/w Dr. Villegas
--- NOTE | 2018-11-15 14:22 | CONSULT ---
- Consultation VASCULAR SURGERY LE Duplex results reviewed. No DVT Cont medical management
[2018-11-15 15:56] LABS: SYNOVIAL FLUID SOURCE Synovial
[2018-11-15 16:48] LABS: SYNOVIAL FLUID LYMPHOCYTES 15 %; SYNOVIAL FLUID NEUTROPHILS 81 %
[2018-11-15 16:49] LABS: SYNOVIAL FLUID MONOCYTES 4 %
--- NOTE | 2018-11-15 17:39 | PN ---
Progress Note, Physician History of Present Illness: Pt seen and examined at bedside. She is awake and alert. She has discomfort from her left shoulder. - Current Medication List Current Medications: Active Medications Acetaminophen (Tylenol -) 650 mg PO Q4H PRN PRN Reason: FEVER Stop: 11/17/18 23:59 Last Admin: 11/15/18 13:29 Dose: 650 mg Aspirin (Ecotrin -) 81 mg PO DAILY [facility] Last Admin: 11/15/18 09:28 Dose: 81 mg Furosemide (Lasix -) 20 mg PO Q3D [facility] Last Admin: 11/15/18 09:28 Dose: 20 mg Gabapentin (Neurontin -) 100 mg PO TID [facility] Last Admin: 11/15/18 14:23 Dose: 100 mg Glyburide (Diabeta -) 5 mg PO DAILY@0700 [facility] Last Admin: 11/15/18 06:04 Dose: 5 mg Levothyroxine Sodium (Synthroid -) 75 mcg PO DAILY@0700 [facility] Last Admin: 11/15/18 06:07 Dose: 75 mcg Lidocaine (Lidoderm Patch -) 1 patch TP DAILY [facility] Last Admin: 11/15/18 09:29 Dose: 1 patch Miscellaneous (Lidoderm Patch Removal) 1 each MC DAILY@2200 [facility] Last Admin: 11/14/18 20:59 Dose: 1 each Miscellaneous (Lidoderm Patch Removal) 1 each MC DAILY@2200 [facility] Last Admin: 11/14/18 20:59 Dose: 1 each Pantoprazole Sodium (Protonix Packets For Oral Suspension -) 40 mg PO DAILY [facility] Last Admin: 11/15/18 09:28 Dose: 40 mg Polyethylene Glycol (Miralax (For Daily Use) -) 17 gm PO DAILY [facility] Last Admin: 11/15/18 09:28 Dose: 17 gm Tamsulosin HCl (Flomax -) 0.4 mg PO DAILY@0830 [facility] Last Admin: 11/15/18 08:13 Dose: 0.4 mg - Objective Vital Signs: Vital Signs Temperature 98 F 11/15/18 10:00 Pulse Rate 82 11/15/18 10:00 Respiratory Rate 20 11/15/18 10:00 Blood Pressure 144/77 11/15/18 10:00 O2 Sat by Pulse Oximetry (%) 90 L 11/15/18 09:00 Constitutional: Yes: Calm Eyes: Yes: Conjunctiva Clear HENT: Yes: Atraumatic Neck: Yes: Supple Cardiovascular: Yes: S1, S2 Respiratory: Yes: CTA Bilaterally Gastrointestinal: Yes: Soft Genitourinary: Yes: WNL Musculoskeletal: Yes: Other (left shoulder pain) Edema: No Neurological: Yes: Oriented Psychiatric: Yes: Oriented Labs: CBC, BMP 11/14/18 06:30 11/15/18 06:10 Problem List - Problems (1) Renal insufficiency Code(s): N28.9 - DISORDER OF KIDNEY AND URETER, UNSPECIFIED (2) Diabetes 1.5, managed as type 2 Code(s): E13.9 - OTHER SPECIFIED DIABETES MELLITUS WITHOUT COMPLICATIONS Assessment/Plan Current Medications Generic Name Dose Route Start Last Admin Trade Name Freq PRN Reason Stop Dose Admin Acetaminophen 650 mg 11/15/18 13:15 11/15/18 13:29 Tylenol - PO 11/17/18 23:59 650 mg Q4H PRN Administration FEVER Aspirin 81 mg 11/13/18 10:00 11/15/18 09:28 Ecotrin - PO 81 mg DAILY ERNIE Administration Furosemide 20 mg 11/15/18 10:00 11/15/18 09:28 Lasix - PO 20 mg Q3D ERNIE Administration Gabapentin 100 mg 11/13/18 14:00 11/15/18 14:23 Neurontin - PO 100 mg TID ERNIE Administration Glyburide 5 mg 11/13/18 07:00 11/15/18 06:04 Diabeta - PO 5 mg DAILY@0700 ERNIE Administration Levothyroxine Sodium 75 mcg 11/15/18 07:00 11/15/18 06:07 Synthroid - PO 75 mcg DAILY@0700 ERNIE Administration Lidocaine 1 patch 11/13/18 10:00 11/15/18 09:29 Lidoderm Patch - TP 1 patch DAILY ERNIE Administration Miscellaneous 1 each 11/12/18 22:00 11/14/18 20:59 Lidoderm Patch Removal MC 1 each DAILY@2200 ERNIE Administration Miscellaneous 1 each 11/12/18 22:00 11/14/18 20:59 Lidoderm Patch Removal MC 1 each DAILY@2200 ERNIE Administration Pantoprazole Sodium 40 mg 11/13/18 10:00 11/15/18 09:28 Protonix Packets For Oral Suspension - PO 40 mg DAILY ER[facility]IE Administration Polyethylene Glycol 17 gm 11/13/18 10:00 11/15/18 09:28 Miralax (For Daily Use) - PO 17 gm DAILY ER[facility]IE Administration Tamsulosin HCl 0.4 mg 11/13/18 08:30 11/15/18 08:13 Flomax - PO 0.4 mg DAILY@0830 ERNIE Administration IMPRESSION back pain CKD H/O lupus proteinuria abdominal sono shows atrophic right kidney pleural effusions Plan - cont lasix - renal function stable - avoid nsaids - rest per primary team - will follow PRN
[2018-11-15] MEDS: LIDOCAINE PATCH REMOVAL MC SCH ×2 (21:28)
[2018-11-15] MEDS ORDERED: CEPHALEXIN 250 MG/5 ML ORAL SUSPENSION PO SCH (22:00)
[2018-11-15 22:45] LABS: CRYSTALS,SYNOVIAL FLUID NEGATIVE
[2018-11-16] MEDS: GABAPENTIN 100 MG CAPSULE (FP) PO SCH ×2 (06:04→14:10)
[2018-11-16] MEDS: LEVOTHYROXINE NA 75 MCG TABLET (FP) PO SCH (06:04)
[2018-11-16] MEDS: glyBURIDE 5 MG TABLET (UD) PO SCH (06:06)
[2018-11-16] MEDS: TAMSULOSIN HCL 0.4 MG CAP PO SCH (09:11)
[2018-11-16] MEDS: PANTOPRAZOLE SOD 40 MG SUSPENSION PACKET PO SCH (09:11)
[2018-11-16] MEDS: LIDOCAINE 5% TOPICAL PATCH TP SCH (09:11)
[2018-11-16] MEDS: POLYETHYLENE GLYCOL 3350 119 GM BTL PO SCH (09:12)
[2018-11-16] MEDS: ASPIRIN COATED 81 MG TABLET.EC PO SCH (09:12)
[2018-11-16] MEDS: ACETAMINOPHEN 325 MG TABLET (FP) PO PRN (09:25)
[2018-11-16] MEDS ORDERED: CEPHALEXIN MONOHYDRATE 250 MG CAPSULE (FP) PO SCH ×2 (10:00→11:16)
--- NOTE | 2018-11-16 12:42 | PN ---
Progress Note (short form) - Note Progress Note: NEUROSURGERY Pain to R buttock, lat thigh, calf, ankle. Some L shoulder pain as well PE: AF, VSS General- unremarkable; no sign of DVT CN- intact; Motor- 4+-5 except R EHL/TA/ev/inv/gastroc 4- pain limited; Sensation- decreased LT R L5 LE doppler - negative for DVT L shoulder x-rays- no fx/dislocation CT LS spine- L4-5 spondylolisthesis; facet hypertrophy, moderate B 4-5 foramenal stenosis, moderate L L5-S1 lat recess stenosis LS MRI- L4-5 and L5-S1 spondylolisthesis, B moderate L4-5 foramenal narrowing R slightly > L; L L5-S1 moderate to marked stenosis T spine MRI- DDD; chronic T6 compression deformity, no canal compromise L4-5 and L5-S1 degenerative spondylolisthesis with lat recess and foramenal narrowing but mild central stenosis only T spine MRI- T11-12 C7-T1 DDD; Mild T6 chronic compression deformity Cont Gabapentin for radicular pain, may titrate up Fro SNF/rehab rehab If persistent sciatica could consider R L4-5 ANAMIKA for pain management
[2018-11-16 13:50] VITALS: BP 131/66; PULSE 82; TEMP 98.3
== END 2018-11-16 14:33 | DRG 552 ==
LOC: JER 23:39 → JERBED 11-12 06:35 → OBSVTOIN 11-12 14:47 → J7W 11-12 16:28
PROVIDERS: ADMIT Family Medicine; ATTEND Family Medicine
PROC: 0R9K3ZX Drainage of Left Shoulder Joint, Percutaneous Approach, Diagnostic (ICD-10-PCS; principal; 2018-11-15)
DX: M43.17 Spondylolisthesis, lumbosacral region (principal); G95.20 Unspecified cord compression; I13.0 Hypertensive heart and chronic kidney disease with heart failure and stage 1 through stage 4 chronic kidney disease, or unspecified chronic kidney disease; I50.9 Heart failure, unspecified; N18.9 Chronic kidney disease, unspecified; E11.22 Type 2 diabetes mellitus with diabetic chronic kidney disease; M48.07 Spinal stenosis, lumbosacral region; I27.20 Pulmonary hypertension, unspecified; Z99.81 Dependence on supplemental oxygen; E78.5 Hyperlipidemia, unspecified; E03.9 Hypothyroidism, unspecified; M16.11 Unilateral primary osteoarthritis, right hip; M54.41 Lumbago with sciatica, right side; M54.16 Radiculopathy, lumbar region; M25.412 Effusion, left shoulder; Z79.84 Long term (current) use of oral hypoglycemic drugs
CPT/HCPCS: 36415; 72131-TC; 72146-TC; 72148-TC; 72192-TC; 73030-TC-LT-FY; 73630-TC-LT; 73630-TC-RT-FY; 80048; 80053; 81003; 82962; 84443; 85025; 87070; 87075; 87086; 87205; 89051; 89060; 93970-TC; 97116-GP; 97162-GP; 99284-25; G0378; J0131

== ENCOUNTER 2018-11-21 10:14 | Inpatient (IN) | payer OTHER ==
[2018-11-21] MEDS ORDERED: ASPIRIN 81 MG CHEWABLE TABLETS PO ONE (10:50)
[2018-11-21] MEDS ORDERED: VANCOMYCIN 1 GM in D5W (PRE-DOCKED) 1,000 MG/250 ML IVPB ONE (11:01)
[2018-11-21] MEDS ORDERED: PIPERACILLIN/TAZOB 4.5 GM 4.5 GM in DEXTROSE 5%-WATER 100 ML IVPB ONE (11:01)
[2018-11-21] MEDS ORDERED: SODIUM CHLORIDE 0.9% 500 ML INFUS.BAG IV ONE (11:01)
--- NOTE | 2018-11-21 11:02 | PDOC ---
History of Present Illness - General Chief Complaint: Abnormal Lab Results (Outside) Stated Complaint: ABD NORMAL LABS Time Seen by Provider: 11/21/18 11:01 History Source: Patient, Family (daughter) Exam Limitations: No Limitations - History of Present Illness Initial Comments: 11/21/18 11:02 Ragini Cotton is a 87yF w PMHx lupus, DM, HTN, HLD, CKD, hypothyroidism, acute respiratory failure on 6L O2 presenting from [facility] w positive troponin. Today, [place] troponin elevated 1.94. Pt complains of bilateral arm pain worse in hands since yesterday. Recently d/c from hospital on 11/15 after cholecystectomy to [facility]. Pt was ambulating and no respiratory distress on room air before hospital stay. Pt now too weak to ambulate, breathes 6L O2 at baseline. Denies nausea/vomiting, SOB, chest pain, urinary/bowel movement changes. Past History - Past Medical History Allergies/Adverse Reactions: Allergies Allergy/AdvReac Type Severity Reaction Status Date / Time No Known Allergies Allergy Verified 11/21/18 10:49 Home Medications: Ambulatory Orders Aspirin Coated [Ecotrin -] 81 mg PO DAILY tablet.ec 09/26/18 Glyburide [Micronase -] 5 mg PO DAILY@0700 tablet 09/26/18 Furosemide [Lasix -] 20 mg PO ASDIR 11/05/18 Acetaminophen 650 mg PO Q6H PRN 11/21/18 Gabapentin 200 mg PO HS 11/21/18 Gabapentin [Neurontin -] 100 mg PO BID 11/21/18 Levothyroxine [Synthroid -] 75 mcg PO DAILY@0700 11/21/18 Lidocaine 5% Patch [Lidoderm Patch -] 1 patch TP DAILY 11/21/18 Pantoprazole Sodium [Protonix] 40 mg PO DAILY 11/21/18 Polyethylene Glycol 3350 17 gm PO DAILY 11/21/18 Tamsulosin HCl 0.4 mg PO DAILY 11/21/18 traMADol HCL [Ultram -] 50 mg PO Q12H 11/21/18 Anemia: Yes Asthma: No Cancer: No Cardiac Disorders: Yes (heart murmur) CVA: No ("mini stroke one time") COPD: No CHF: Yes Dementia: No Diabetes: Yes (niddm) GI Disorders: Yes (GERD) Disorders: Yes (incontinent at times) HTN: Yes Hypercholesterolemia: Yes Liver Disease: No Seizures: No Thyroid Disease: Yes (Hypothyroidism) Other medical history: Lupus - Surgical History Abdominal Surgery: No Appendectomy: No Cardiac Surgery: No Cholecystectomy: Yes Lung Surgery: No Neurologic Surgery: No Orthopedic Surgery: Yes (Left knee Replacement) - Psycho Social/Smoking Cessation Hx Smoking History: Unknown if ever smoked Have you smoked in the past 12 months: No If you are a former smoker, when did you quit?: 25 years ago 'Breaking Loose' booklet given: 09/22/18 Hx Alcohol Use: No Drug/Substance Use Hx: No Substance Use Type: None Hx Substance Use Treatment: No Review of Systems - Review of Systems Constitutional: Yes: Weakness (generalized). No: Chills HEENTM: No: Eye Pain, Recent change in vision, Nose Pain, Throat Pain, Mouth Pain Respiratory: No: Cough, Shortness of Breath Cardiac (ROS): No: Chest Pain, Palpitations, Syncope, Chest Tightness ABD/GI: No: Abdominal Distended, Constipated, Diarrhea, Nausea, Vomiting : No: Burning, Dysuria, Discharge, Frequency, Hematuria Musculoskeletal: No: Joint Swelling, Muscle Pain Integumentary: No: Bruising, Dryness, Erythema Neurological: No: Headache, Seizure, Tingling, Tremors Psychiatric: No: Anxiety, Depression Endocrine: No: Excessive Sweating, Flushing, Intolerance to Cold, Intolerance to Heat Hematologic/Lymphatic: No: Anemia, Blood Clots *Physical Exam - Vital Signs Last Vital Signs Temp Pulse Resp BP Pulse Ox 100.6 F H 91 H 15 119/70 94 L 11/21/18 10:15 11/21/18 10:15 11/21/18 10:15 11/21/18 10:15 11/21/18 10:15 - Physical Exam General Appearance: Yes: Nourished, Appropriately Dressed, Cachetic, Thin HEENT: positive: EOMI, ASH, Normal Voice, Hearing Grossly Normal. negative: Scleral Icterus (R), Scleral Icterus (L), Nasal Congestion, Rhinorrhea Respiratory/Chest: positive: Lungs Clear, Normal Breath Sounds, Accessory Muscle Use (on 6L NS). negative: Chest Tender, Crackles, Rales, Rhonchi, Stridor, Wheezing Cardiovascular: positive: Regular Rhythm, S1, S2, Tachycardia. negative: Edema , Murmur Comments:: 11/21/18 13:30 +3 radial pulses Gastrointestinal/Abdominal: positive: Tender (moderate tender L/R suprapubic regions), Flat, Soft, Other (well healed non tender/erythematous laprascopic AB scars). negative: Normal Bowel Sounds, Organomegaly, Guarding, Rebound, Hernia Musculoskeletal: negative: CVA Tenderness (R), CVA Tenderness (L) Extremity: positive: Delayed Capillary Refill Integumentary: positive: Dry, Warm. negative: Jaundice, Rash, Swelling Neurologic: positive: connie cleaner II-XII NML intact, Fully Oriented, Alert, Normal Mood/ Affect. negative: Motor Strength 5/5 (3/5 strength all extremities), Numbness, Sensory Deficit, Confused, Disoriented ED Treatment Course - LABORATORY CBC & Chemistry Diagram: 11/21/18 11:00 11/21/18 11:00 - RADIOLOGY Radiology Studies Ordered: Category Date Time Status CHEST X-RAY PORTABLE* [RAD] Stat Radiology 11/21/18 10:59 Ordered Medical Decision Making - Medical Decision Making 11/21/18 11:05 sepsis workup Given 1L NS, vanc, zosyn for sepsis, aspirin and heparin protocol for NSTEMI CXR clear lung shafer WBC 10.7, CR 1.9 (baseline CKD), BNP 19,000, trop 1.22 lactate 0.8, UA 2+ protein but no infection/blood EKG shows new T wave inversions V2-4 compared to 09/2018, PAC, HR 88, QTc 433 repeat trop, EKG 2pm Ragini Yury is a 87yF w PMHx lupus, DM, HTN, HLD, CKD, hypothyroidism, acute respiratory failure on 6L O2 presenting from [facility] w positive troponin and 1d bilateral arm pain Also has suprapubic tenderness on exam. Admitting vitals temp 100.6, tachycardic 91 Bilateral arm pain, elevated trop 1.22 and new T wave inversions concerning for NSTEMI. Concern for acute respiratory failure - on 6L NC, up from no supplemental O2 before hospital visit. No evidence of lung infection (clear lung shafer CXR). No evidence of UTI. Given 1L NS, vanc, zosyn for sepsis coverage, aspirin and heparin protocol for NSTEMI. A&Ox3, diffuse 3/5 strength, no focal deficits on exam lowering concern for stroke. Admitted to tele Dr Sidney Rasheed for NSTEMI, acute respiratory failure, arm/ abdominal pain, diffuse weakness Consulted Dr Zabala cardiology for NSTEMI -2nd trop, EKG drawn 2pm Discharge - Discharge Information Problems reviewed: Yes Clinical Impression/Diagnosis: Acute respiratory failure with hypoxia, NSTEMI (non-ST elevated myocardial infarction), Weakness Condition: Stable - Follow up/Referral - Patient Discharge Instructions - Post Discharge Activity
[2018-11-21] MEDS ORDERED: ASPIRIN 81 MG CHEWABLE TABLETS ONE (11:06)
[2018-11-21] MEDS ORDERED: PIPERACILLIN/TAZOB 4.5 GM 4.5 GM/100 ML BAG IVPB ONE (11:28)
--- NOTE | 2018-11-21 11:53 | PDOC ---
Attending Attestation - Resident Resident Name: Emily Suarez - HPI HPI: 11/21/18 12:41 Pt presents to the ED after sent in for diffuse body aches and elevated troponin on labs drawn by [facility]. Denies nausea or vomiting . Febrile in the ED. - Physicial Exam PE: 11/21/18 12:42 Agree with resident exam. PAtient is alert, in NAD. Abdomen is soft, non tender and non distended. - Medical Decision Making 11/21/18 12:42 Pt presents to the ED complaining of abdominal pain and diffuse body aches. Sent in by [place] for elevated troponin on labs drawn there. Found to be febrile in the ED. Differential includes sepsis, NSTEMI. Will check labs and start broad spectrum antibiotics. Given ASA. Will admit to medicine. 11/21/18 12:55
[2018-11-21 12:10] LABS: EPI CELLS 1.5 /HPF (0-5/HPF); HYALINE CASTS 7 /lpf (0-8); URINE APPEARANCE CLEAR; URINE BACTERIA 3.6 /hpf (NEGATIVE); URINE BILIRUBIN NEGATIVE (NEGATIVE); URINE COLOR YELLOW; URINE GLUCOSE (UA) NEGATIVE (NEGATIVE); URINE KETONE NEGATIVE (NEGATIVE); URINE LEUK ESTERASE NEGATIVE (NEGATIVE); URINE NITRITE NEGATIVE (NEGATIVE); URINE PROTEIN 2+ (NEGATIVE); URINE RBC 2 /hpf (0-4); URINE UROBILINOGEN 0.2 mg/dL (0.2-1.0); URINE WBC 1 /hpf (0-5)
[2018-11-21 12:24] LABS: BASO % 0.5 % (0-2.0); EOS % 0.3 % (0-4.5); HEMATOCRIT 32.4 % (32.4-45.2); HEMOGLOBIN 10.7 GM/dL (10.7-15.3); LYMPH % 5.3 % (8-40); MCH 28.3 pg (25.7-33.7); MCHC 33.1 g/dl (32.0-36.0); MEAN CELL VOLUME 85.7 fl (80-96); MEAN PLT VOLUME 8.2 fl (7.5-11.1); MONO % 10.1 % (3.8-10.2); NEUT % 83.8 % (42.8-82.8); PLATELET COUNT 324 K/MM3 (134-434); RBC 3.79 M/mm3 (3.60-5.2); RDW 16.4 % (11.6-15.6); WHITE BLOOD COUNT 10.7 K/mm3 (4.0-10.0)
[2018-11-21] MEDS ORDERED: VANCOMYCIN 1 GRAM (PRE-DOCKED) 1,000 MG/250 ML BAG IVPB ONE (12:38)
[2018-11-21 12:58] LABS: ALBUMIN 2.7 g/dl (3.4-5.0); BILIRUBIN,TOTAL 0.7 mg/dL (0.2-1); CALCIUM 7.7 mg/dL (8.5-10.1); CREATININE 1.9 mg/dL (0.55-1.3); N-TERMINAL BNP 19057.4 pg/ml (5-450); POTASSIUM 4.5 mmol/L (3.5-5.1); TOT PROT 6.4 g/dl (6.4-8.2)
[2018-11-21 13:05] LABS: INR 1.17 (0.83-1.09); PROTHROMBIN TIME (PATIENT) 13.8 SEC (9.7-13.0)
[2018-11-21 13:08] LABS: ACTIVATED PTT 33.1 SECONDS (25.2-36.5)
[2018-11-21] MEDS ORDERED: HEPARIN NA (PORCINE) 5,000 UNITS/ML 1ML VIAL IVPUSH ONE (14:17)
--- NOTE | 2018-11-21 14:32 | EKG ---
Test Reason : Blood Pressure : / mmHG Vent. Rate : 088 BPM Atrial Rate : 088 BPM P-R Int : 152 ms QRS Dur : 082 ms QT Int : 358 ms P-R-T Axes : 028 050 -13 degrees QTc Int : 433 ms SINUS RHYTHM WITH PREMATURE ATRIAL COMPLEXES T WAVE ABNORMALITY, CONSIDER INFERIOR ISCHEMIA T WAVE ABNORMALITY, CONSIDER ANTERIOR ISCHEMIA ABNORMAL ECG WHEN COMPARED WITH ECG OF 22-SEP-2018 04:37, NON-SPECIFIC CHANGE IN ST SEGMENT IN ANTERIOR LEADS INVERTED T WAVES HAVE REPLACED NONSPECIFIC T WAVE ABNORMALITY IN INFERIOR LEADS T WAVE INVERSION NOW EVIDENT IN ANTERIOR LEADS Confirmed by LOUIE MEDEROS MD ([id number]) on 11/21/2018 2:32:18 PM Referred By: Confirmed By:LOUIE MEDEROS MD
[2018-11-21] MEDS ORDERED: HEPARIN NA (PORCINE) 5,000 UNITS/ML 1ML VIAL ONE (14:39)
[2018-11-21] MEDS ORDERED: HEPARIN INFUSION - 25,000 UNITS/500 ML INFUS.BAG IVPB ONE (14:39)
[2018-11-21] MEDS: HEPARIN INFUSION - 25,000 UNITS/500 ML INFUS.BAG IVPB SCH (15:00)
--- NOTE | 2018-11-21 15:51 | CON.CARD ---
Consult Consult Specialty:: Cardiology Referred by:: Dr. Rasheed Reason for Consultation:: elevated troponin - History of Present Illness Chief Complaint: body aches, chills History of Present Illness: 87 year old woman with a pmh HTN, HLD, DMII, CKD, SLE, hypothyroid, resp failure on O2, recently discharged after cholecystectomy to [facility] rehab sent to ER from [facility] after c/o diffuse body aches, chills, sob requiring 6L O2. A troponin was sent at [facility] and was elevated. pt seen and examined today. daughter at bedside. daughter states that for the past few days her mom has not been well. pt states she feels cold and has diffuse body aches. denies chest pain. - History Source History Provided By: Patient, Family Member, Caregiver Limitations to Obtaining History: No Limitations - Past Medical History Cardio/Vascular: Yes: CHF (pt with dil pacreatic duct was waiting mrcp out pt never got to it), HTN, Other (? cp) Gastrointestinal: Yes: Other (ruq pain to deep palp) Musculoskeletal: Yes: Bursitis, Chronic low back pain Rheumatology: Yes: Lupus Endocrine: Yes: Diabetes Mellitus, Hypothyroidism - Past Surgical History Past Surgical History: Yes: None - Alcohol/Substance Use Hx Alcohol Use: No History of Substance Use: reports: None - Smoking History Smoking history: Unknown if ever smoked Have you smoked in the past 12 months: No If you are a former smoker, when did you quit?: 25 years ago - Social History ADL: Independent History of Recent Travel: No Home Medications - Allergies Allergies/Adverse Reactions: Allergies Allergy/AdvReac Type Severity Reaction Status Date / Time No Known Allergies Allergy Verified 11/21/18 10:49 - Home Medications Home Medications: Ambulatory Orders Aspirin Coated [Ecotrin -] 81 mg PO DAILY tablet.ec 09/26/18 Glyburide [Micronase -] 5 mg PO DAILY@0700 tablet 09/26/18 Furosemide [Lasix -] 20 mg PO ASDIR 11/05/18 Acetaminophen 650 mg PO Q6H PRN 11/21/18 Gabapentin 200 mg PO HS 11/21/18 Gabapentin [Neurontin -] 100 mg PO BID 11/21/18 Levothyroxine [Synthroid -] 75 mcg PO DAILY@0700 11/21/18 Lidocaine 5% Patch [Lidoderm Patch -] 1 patch TP DAILY 11/21/18 Pantoprazole Sodium [Protonix] 40 mg PO DAILY 11/21/18 Polyethylene Glycol 3350 17 gm PO DAILY 11/21/18 Tamsulosin HCl 0.4 mg PO DAILY 11/21/18 traMADol HCL [Ultram -] 50 mg PO Q12H 11/21/18 Review of Systems - Review of Systems Constitutional: reports: Chills, Malaise, Weakness. denies: No Symptoms, Diaphoresis, Fever, Lethargy, Loss of Appetite, Night Sweats, Unintentional Wgt. Loss, Other Eyes: denies: No Symptoms, Blind Spots, Blurred Vision, Double Vision, Eye Pain , Floaters, Photophobia, Recent Change in Vision, Other HENT: denies: No Symptoms, Difficult Swallowing, Ear Discharge, Ear Pain, Epistaxis, Gingival Bleeding, Hearing Loss, Mouth Swelling, Nasal Congestion, Ocular Prosthesis, Throat Pain, Toothache, Ringing in Ears, Other Neck: denies: No Symptoms, Decreased ROM, Lumps, Pain on Movement, Stiffness, Swollen Glands, Tenderness, Other Cardiovascular: denies: No Symptoms, Chest Pain, Edema, Palpitations, Shortness of Breath, Other Respiratory: reports: SOB. denies: No Symptoms, Cough, Exercise Intolerance, Hemoptysis, Orthopnea, PND, Snoring, SOB on Exertion, Wheezing, Other Gastrointestinal: denies: No Symptoms, Abdominal Pain, Bloating, Constipation, Diarrhea, Dysphagia, Indigestion, Melena, Nausea, Rectal Bleeding, Vomiting, Vomiting Blood, Other Genitourinary: denies: No Symptoms, Burning, Discharge, Dysuria, Flank Pain, Frequency, Hematuria, Incontinence, Lesions, Menses, Pain, Testicular Mass, Testicular Pain, Testicular Swelling, Urgency, Vaginal Bleeding, Other Breasts: denies: No Symptoms Reported, See HPI, Breast Implants, Discharge from Nipple, Lumps, Pain, Skin Changes, Other Musculoskeletal: reports: Muscle Pain, Muscle Weakness. denies: No Symptoms, Back Pain, Crepitus, Decreased ROM, Extremity Pain, Joint Pain, Joint Swelling, Muscle Cramps, Other Integumentary: denies: No Symptoms, Blister, Bruising, Change in Color, Eczema, Erythema, Incision, Lesions, Lump, Pallor, Pruritis, Rash, Wound, Other Neurological: denies: No Symptoms, Change in LOC, Change in Speech, Confusion, Dizziness, Headache, Incoordination, Numbness, Parasthesia, Pre-Existing Deficit , Seizure, Syncope, Tremors, Unsteady Gait, Weakness, Other Endocrine: denies: No Symptoms, Excessive Sweating, Flushing, Increased Hunger, Increased Thirst, Intolerance to Cold, Intolerance to Heat, Unexplained Weight Gain, Unexplained Weight Loss, Other Hematology/Lymphatic: denies: No Symptoms, Easily Bruised, Excessive Bleeding, Swollen Glands, Other Psychiatric: denies: No Symptoms, Altered Sleep Pattern, Anxiety, Depression, Hallucinations, Panic, Paranoia, Suicidal, Other Vital Signs: Vital Signs Temperature 98.1 F 11/21/18 15:06 Pulse Rate 80 11/21/18 14:53 Respiratory Rate 22 H 11/21/18 14:53 Blood Pressure 126/66 11/21/18 14:53 O2 Sat by Pulse Oximetry (%) 96 11/21/18 14:53 Constitutional: Yes: No Distress Eyes: Yes: Conjunctiva Clear HENT: Yes: Atraumatic Neck: Yes: Supple Respiratory: Yes: Regular Gastrointestinal: Yes: Normal Bowel Sounds, Soft Cardiovascular: Yes: Regular Rate and Rhythm. No: Bradycardia, Tachycardia, Pulse Irregular, Gallop, Rub, Varicosities JVD: No Carotid Bruit: No PMI: Non-Displaced Heart Sounds: Yes: S1, S2. No: Split S2, S3, S4, Clicks, Gallop, Rub, Bruit Extremities: Yes: WNL Edema: No Peripheral Pulses WNL: Yes Peripheral Pulses: 2+ Left Doralis Pedis, 2+ Right Dorsalis Pedis Neurological: Yes: Alert, Oriented Psychiatric: Yes: Alert, Oriented - Other Data Labs, Other Data: CBC, BMP 11/21/18 11:00 11/21/18 11:00 INR, PTT INR 1.17 (0.83-1.09) H 11/21/18 11:00 Troponin, BNP 11/21/18 11/21/18 11:00 14:40 Troponin I 1.22 H* 0.97 H* B-Natriuretic Peptide 75188.4 H Troponin, BNP 11/21/18 11/21/18 11:00 14:40 Troponin I 1.22 H* 0.97 H* B-Natriuretic Peptide 83995.4 H ekg-nsr, t wave abnl, possible ant possible inf ischemia Echo: Report Reviewed Imaging - Results Chest X-ray: Report Reviewed, Image Reviewed EKG: Report Reviewed, Image Reviewed Other: Report Reviewed, Image Reviewed Assessment/Plan 87 year old woman with a pmh HTN, HLD, DMII, CKD, SLE, hypothyroid, resp failure on O2, recently discharged after cholecystectomy to [facility] rehab sent to ER from [facility] after c/o diffuse body aches, chills, sob requiring 6L O2. A troponin was sent at [facility] and was elevated. pt states she feels cold and has diffuse body aches. denies chest pain. Elevated troponin-unlikely type 1 IL, more likely type 2 IL in setting of infection and CKD -troponin trended down -with normal CK level -no chest pain -ekg possible ischemia -recent admission with cholecystectomy -pt complaints of diffuse body aches and chills and has low grade fever -suspect infectious process as source of symptoms -also noted to have elevated TSH level on recent admission, would repeat TSH and further TFTs as needed -a repeat echo was ordered to re-evaluate LV function which was normal on recent echo -she is currently receiving heparin gtt for nstemi, as troponin is trending down this can likely be stopped tomorrow -cont home ASA 81mg daily
--- NOTE | 2018-11-21 16:52 | ECHO ---
Name: TAI FERNANDEZ Exam:Adult Echocardiogram Study Date: 11/21/2018 03:04 PM Age: 87 yrs Reason For Study: SAVANNAH STEVENSON, LV FUNCTION Height: 59 in Weight: 106 lb BSA: 1.4 m2 MMode/2D Measurements & Calculations IVSd: 0.92 cm Ao root diam: 2.7 cm LVIDd: 3.1 cm LA dimension: 3.2 cm LVIDs: 2.3 cm LVPWd: 1.1 cm LVPWs: 1.3 cm EDV(Teich): 38.3 ml ESV(Teich): 17.2 ml LVOT diam: 1.9 cm LAV (MOD-bp): 41.8 ml TAPSE: 1.3 cm RV S Jon: 11.4 cm/sec Doppler Measurements & Calculations MVA(VTI): 1.5 cm2 MV E max jon: 47.5 cm/sec MV V2 max: 133.7 cm/sec MV A max jon: 132.9 cm/sec MV max P.1 mmHg MV E/A: 0.36 MV V2 mean: 75.0 cm/sec MV dec time: 0.29 sec MV mean P.7 mmHg MV V2 VTI: 36.7 cm Ao V2 max: 195.4 cm/sec AI max jon: 443.8 cm/sec Ao max P.3 mmHg AI max P.9 mmHg Ao V2 mean: 123.7 cm/sec Ao mean P.5 mmHg AI dec slope: 256.8 cm/sec2 Ao V2 VTI: 35.3 cm AJ(I,D): 1.5 cm2 AI P1/2t: 506.2 msec AJ(V,D): 1.5 cm2 LV V1 max P.1 mmHg SV(LVOT): 54.5 ml LV V1 mean P.8 mmHg LV V1 max: 100.9 cm/sec LV V1 mean: 60.8 cm/sec LV V1 VTI: 19.0 cm TR max jon: 345.4 cm/sec PA V2 max: 88.2 cm/sec TR max P.7 mmHg PA max P.1 mmHg Lat Peak E' Jon: 4.6 cm/sec Lat E/e': 10.4 Left Ventricle The left ventricle is normal in size. There is mild concentric left ventricular hypertrophy. The left ventricular ejection fraction is normal. Ejection Fraction = 55%. The transmitral spectral Doppler fl ow pattern is suggestive of impaired LV relaxation. The left ventricular wall motion is normal. Flattene d septum is consistent with RV pressure/volume overload. Right Ventricle Borderline right ventricular enlargement. The right ventricular systolic function is normal. Atria The left atrium is moderately dilated. The right atrium is mild to moderately dilated. There is no Do ppler evidence for an atrial septal defect. Mitral Valve There is mild mitral valve thickening. There is mild to moderate mitral regurgitation. Tricuspid Valve There is moderate to severe tricuspid regurgitation. There is moderate pulmonary hypertension. Right ventricular systolic pressure is elevated at 40-50mmHg. Aortic Valve There is moderate aortic valve thickening. Trace to mild aortic regurgitation. Pulmonic Valve Mild pulmonic valvular regurgitation. Great Vessels The aortic root is normal size. Pericardium/Pleura There is no pericardial effusion. Interpretation Summary There is moderate aortic valve thickening. There is moderate pulmonary hypertension. Right ventricular systolic pressure is elevated at 40-50mmHg. The left ventricle is normal in size. The left ventricular ejection fraction is normal. Ejection Fraction = 55%. The transmitral spectral Doppler flow pattern is suggestive of impaired LV relaxation. The left atrium is moderately dilated. There is mild concentric left ventricular hypertrophy. The left ventricular wall motion is normal. Mild pulmonic valvular regurgitation. The aortic root is normal size. There is no pericardial effusion. The right ventricular systolic function is normal. Trace to mild aortic regurgitation. Borderline right ventricular enlargement. Flattened septum is consistent with RV pressure/volume overload. The right atrium is mild to moderately dilated. There is no Doppler evidence for an atrial septal defect. There is mild mitral valve thickening. There is mild to moderate mitral regurgitation. Jean Claude Herrera MD 11/21/2018 04:51 PM
--- NOTE | 2018-11-21 17:50 | CONSULT ---
Consult Consult Specialty:: Nephrology Reason for Consultation:: CKD - History of Present Illness Chief Complaint: sent in from [place] with positive troponin History of Present Illness: Pt is an 87 year old female with pmhx of lupus, ckd, htn, hld, hypithyroidism, and dm who was sent in for positive troponins. She had a recent cholecystectomy. She did have chest pain earlier. She denies chest pain now. SHe complains of generalized body aches. 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 She does have CKD. She feels that her lower ext edema is improved. - History Source History Provided By: Patient, Medical Record - Past Medical History Cardio/Vascular: Yes: CHF (pt with dil pacreatic duct was waiting mrcp out pt never got to it), HTN, Other (? cp) Gastrointestinal: Yes: Other (ruq pain to deep palp) Musculoskeletal: Yes: Bursitis, Chronic low back pain Rheumatology: Yes: Lupus Endocrine: Yes: Diabetes Mellitus, Hypothyroidism - Past Surgical History Past Surgical History: Yes: None - Alcohol/Substance Use Hx Alcohol Use: No History of Substance Use: reports: None - Smoking History Smoking history: Unknown if ever smoked Have you smoked in the past 12 months: No If you are a former smoker, when did you quit?: 25 years ago - Social History ADL: Independent History of Recent Travel: No Home Medications - Allergies Allergies/Adverse Reactions: Allergies Allergy/AdvReac Type Severity Reaction Status Date / Time No Known Allergies Allergy Verified 11/21/18 10:49 - Home Medications Home Medications: Ambulatory Orders Aspirin Coated [Ecotrin -] 81 mg PO DAILY tablet.ec 09/26/18 Glyburide [Micronase -] 5 mg PO DAILY@0700 tablet 09/26/18 Furosemide [Lasix -] 20 mg PO ASDIR 11/05/18 Acetaminophen 650 mg PO Q6H PRN 11/21/18 Gabapentin 200 mg PO HS 11/21/18 Gabapentin [Neurontin -] 100 mg PO BID 11/21/18 Levothyroxine [Synthroid -] 75 mcg PO DAILY@0700 11/21/18 Lidocaine 5% Patch [Lidoderm Patch -] 1 patch TP DAILY 11/21/18 Pantoprazole Sodium [Protonix] 40 mg PO DAILY 11/21/18 Polyethylene Glycol 3350 17 gm PO DAILY 11/21/18 Tamsulosin HCl 0.4 mg PO DAILY 11/21/18 traMADol HCL [Ultram -] 50 mg PO Q12H 11/21/18 Family Medical History Family History: Denies Review of Systems - Review of Systems Constitutional: reports: Malaise Eyes: reports: No Symptoms HENT: reports: No Symptoms Cardiovascular: reports: Chest Pain. denies: Edema Respiratory: reports: SOB on Exertion Gastrointestinal: reports: No Symptoms Musculoskeletal: reports: Muscle Pain Neurological: reports: No Symptoms Endocrine: reports: No Symptoms Hematology/Lymphatic: reports: No Symptoms Psychiatric: reports: No Symptoms Physical Exam Vital Signs: Vital Signs Temperature 98.1 F 11/21/18 15:06 Pulse Rate 80 11/21/18 14:53 Respiratory Rate 22 H 11/21/18 14:53 Blood Pressure 126/66 11/21/18 14:53 O2 Sat by Pulse Oximetry (%) 96 11/21/18 17:14 Constitutional: Yes: Calm Eyes: Yes: Conjunctiva Clear HENT: Yes: Atraumatic Neck: Yes: Supple Cardiovascular: Yes: S1, S2 Respiratory: Yes: CTA Bilaterally, On Nasal O2 Gastrointestinal: Yes: Normal Bowel Sounds, Soft Renal/: Yes: WNL Musculoskeletal: Yes: Other (joint pain) Edema: No Neurological: Yes: Oriented Psychiatric: Yes: Oriented Labs: CBC, BMP 11/21/18 11:00 11/21/18 11:00 Laboratory Tests 11/14/18 11/15/18 11/21/18 06:30 06:10 11:00 WBC 10.7 H Hgb 10.7 Creatinine 1.5 H 1.6 H Troponin I B-Natriuretic Peptide 11/21/18 11/21/18 11:00 14:40 WBC Hgb Creatinine 1.9 H Troponin I 1.22 H* 0.97 H* B-Natriuretic Peptide 76193.4 H Imaging - Results Chest X-ray: Report Reviewed Problem List - Problems (1) Renal insufficiency Code(s): N28.9 - DISORDER OF KIDNEY AND URETER, UNSPECIFIED Assessment/Plan Current Medications Generic Name Dose Route Start Last Admin Trade Name Freq PRN Reason Stop Dose Admin Furosemide 20 mg 11/22/18 10:00 Lasix - PO MoWeFr@1000 [facility] Glyburide 5 mg 11/22/18 07:00 Diabeta - PO DAILY@0700 [facility] Heparin Sodium/Dextrose 25,000 units in 500 mls @ 20 mls/hr 11/21/18 14:30 15:00 Heparin Infusion - IVPB 1,000 units/hr TITR ERNIE 20 mls/hr Administration Protocol 1,000 UNITS/HR Levothyroxine Sodium 75 mcg 11/22/18 07:00 Synthroid - PO DAILY@0700 ERNIE Impression positive troponin CKD H/O lupus proteinuria atrophic right kidney pleural effusions Plan - cardio evaluate pt - pt admitted to tele - monitor renal function - avoid nephrotoxins - will not give lasix today - d/c lasix order for tomorrow until evaluated
[2018-11-21] MEDS ORDERED: ACETAMINOPHEN 325 MG TABLET (FP) PO ONE (17:51)
[2018-11-21] MEDS ORDERED: FLU VACCINE QUAD 60 MCG/0.5 ML (MDV 19-20) IM ONE (17:51)
[2018-11-21] MEDS ORDERED: PANTOPRAZOLE 40 MG TABLET (FP) PO ONE (21:00)
[2018-11-21] MEDS ORDERED: MAG HYDROX/AL HYDROX/SIMETH 30 ML UNIT-DOSE CUP PO ONE (21:00)
[2018-11-21 22:07] LABS: INR 1.33 (0.83-1.09); PROTHROMBIN TIME (PATIENT) 15.7 SEC (9.7-13.0)
[2018-11-21] MEDS: ACETAMINOPHEN 325 MG TABLET (FP) PO PRN (22:40)
[2018-11-22] MEDS: ACETAMINOPHEN 325 MG TABLET (FP) PO PRN ×4 (06:11→21:29)
[2018-11-22] MEDS: glyBURIDE 5 MG TABLET (UD) PO SCH (06:11)
[2018-11-22] MEDS: LEVOTHYROXINE NA 75 MCG TABLET (FP) PO SCH (06:11)
[2018-11-22 06:46] LABS: HEMATOCRIT 32.8 % (32.4-45.2); HEMOGLOBIN 10.7 GM/dL (10.7-15.3); MCH 28.2 pg (25.7-33.7); MCHC 32.6 g/dl (32.0-36.0); MEAN CELL VOLUME 86.4 fl (80-96); PLATELET COUNT 312 K/MM3 (134-434); RDW 16.1 % (11.6-15.6)
[2018-11-22 06:56] LABS: INR 1.23 (0.83-1.09); PROTHROMBIN TIME (PATIENT) 14.6 SEC (9.7-13.0)
[2018-11-22 06:59] LABS: ACTIVATED PTT 63.3 SECONDS (25.2-36.5)
[2018-11-22] MEDS ORDERED: LEVOTHYROXINE NA 25 MCG TABLET (FP) PO SCH (07:00)
[2018-11-22 07:34] LABS: ALBUMIN 2.3 g/dl (3.4-5.0); BILIRUBIN,TOTAL 0.4 mg/dL (0.2-1); BLOOD UREA NITROGEN 59.1 mg/dL (7-18); CALCIUM 7.9 mg/dL (8.5-10.1); CREATININE 1.8 mg/dL (0.55-1.3); POTASSIUM 4.1 mmol/L (3.5-5.1)
[2018-11-22] MEDS ORDERED: FUROSEMIDE 20 MG TABLET (FP) PO SCH (10:00)
[2018-11-22] MEDS: PANTOPRAZOLE 40 MG TABLET (FP) PO SCH (10:01)
[2018-11-22] MEDS ORDERED: PNEUMOC 13-VAL CONJ-DIP CRM/PF 0.5 ML DISP.SYRIN IM ONE (11:20)
--- NOTE | 2018-11-22 12:18 | PN ---
Progress Note, Physician History of Present Illness: Pt seen and examined at bedside. She is awake and alert. She feels a little better today. She feels that her breathing is more comfortable. - Current Medication List Current Medications: Active Medications Acetaminophen (Tylenol -) 650 mg PO Q4H PRN PRN Reason: PAIN LEVEL 6-10 Last Admin: 11/22/18 10:01 Dose: 650 mg Furosemide (Lasix -) 20 mg PO MoWeFr@1000 ERNIE Glyburide (Diabeta -) 5 mg PO DAILY@0700 [facility] Last Admin: 11/22/18 06:11 Dose: 5 mg Heparin Sodium/Dextrose (Heparin Infusion -) 25,000 units in 500 mls @ 20 mls/ hr IVPB TITR [facility]; Protocol Last Admin: 11/21/18 15:00 Dose: 1,000 units/hr, 20 mls/hr Levothyroxine Sodium (Synthroid -) 75 mcg PO DAILY@0700 [facility] Last Admin: 11/22/18 06:11 Dose: 75 mcg Pantoprazole Sodium (Protonix -) 40 mg PO DAILY [facility] Last Admin: 11/22/18 10:01 Dose: 40 mg - Objective Vital Signs: Vital Signs Temperature 97.6 F 11/22/18 10:00 Pulse Rate 77 11/22/18 10:00 Respiratory Rate 18 11/22/18 10:00 Blood Pressure 135/72 11/22/18 10:00 O2 Sat by Pulse Oximetry (%) 98 11/22/18 09:00 Constitutional: Yes: Calm Eyes: Yes: Conjunctiva Clear HENT: Yes: Atraumatic Cardiovascular: Yes: S1, S2 Respiratory: Yes: On Nasal O2 Gastrointestinal: Yes: Normal Bowel Sounds, Soft Genitourinary: Yes: Incontinence Neurological: Yes: Oriented Psychiatric: Yes: Oriented Labs: CBC, BMP 11/22/18 06:26 11/22/18 06:26 INR, PTT INR 1.23 (0.83-1.09) H 11/22/18 06:26 Problem List - Problems (1) Renal insufficiency Code(s): N28.9 - DISORDER OF KIDNEY AND URETER, UNSPECIFIED Assessment/Plan Current Medications Generic Name Dose Route Start Last Admin Trade Name Freq PRN Reason Stop Dose Admin Acetaminophen 650 mg 11/21/18 17:55 11/22/18 10:01 Tylenol - PO 650 mg Q4H PRN Administration PAIN LEVEL 6-10 Furosemide 20 mg 11/22/18 10:00 Lasix - PO MoWeFr@1000 [facility] Glyburide 5 mg 11/22/18 07:00 11/22/18 06:11 Diabeta - PO 5 mg DAILY@0700 ERNIE Administration Heparin Sodium/Dextrose 25,000 units in 500 mls @ 20 mls/hr 11/21/18 14:30 15:00 Heparin Infusion - IVPB 1,000 units/hr TITR ERNIE 20 mls/hr Administration Protocol 1,000 UNITS/HR Levothyroxine Sodium 75 mcg 11/22/18 07:00 11/22/18 06:11 Synthroid - PO 75 mcg DAILY@0700 ERNIE Administration Pantoprazole Sodium 40 mg 11/22/18 10:00 11/22/18 10:01 Protonix - PO 40 mg DAILY ERNIE Administration Impression positive troponin CKD H/O lupus proteinuria atrophic right kidney pleural effusions Plan - monitor renal function - can cont with lasix - monitor renal function - cardio follow up - discussed with pt and family
--- NOTE | 2018-11-22 12:23 | EKG ---
Test Reason : Blood Pressure : / mmHG Vent. Rate : 082 BPM Atrial Rate : 082 BPM P-R Int : 164 ms QRS Dur : 082 ms QT Int : 382 ms P-R-T Axes : 000 000 -28 degrees QTc Int : 446 ms NORMAL SINUS RHYTHM RSR' OR QR PATTERN IN V1 SUGGESTS RIGHT VENTRICULAR CONDUCTION DELAY NONSPECIFIC T WAVE ABNORMALITY ABNORMAL ECG WHEN COMPARED WITH ECG OF 21-NOV-2018 10:40, PREMATURE ATRIAL COMPLEXES ARE NO LONGER PRESENT Confirmed by GERMAINE HUFF MD ([id number]) on 11/22/2018 12:22:54 PM Referred By: Confirmed By:GERMAINE HUFF MD
[2018-11-22] MEDS: FUROSEMIDE 20 MG TABLET (FP) PO SCH (12:42)
--- NOTE | 2018-11-22 13:01 | HP ---
Admitting History and Physical - Admission Chief Complaint: nasea weak 2 days tni pos w ekg changes. admitted deniied all other complaints History Source: Patient, Family Member - Past Medical History Cardiovascular: Yes: CHF (pt with dil pacreatic duct was waiting mrcp out pt never got to it), HTN, Other (perivardial cyst) Gastrointestinal: Yes: GERD, Other (ruq pain to deep palp) ...: No Heme/Onc: Yes: Other (h/o lupus) Musculoskeletal: Yes: Bursitis, Chronic low back pain Rheumatology: Yes: Lupus Endocrine: Yes: Diabetes Mellitus, Hypothyroidism - Past Surgical History Past Surgical History: Yes: None Additional Past Surgical History: rectal prolapse sx - Smoking History Smoking history: Unknown if ever smoked (spoke daughter will dicuss dnr dni w family) Have you smoked in the past 12 months: No If you are a former smoker, when did you quit?: 25 years ago - Alcohol/Substance Use Hx Alcohol Use: No History of Substance Use: reports: None - Social History Usual Living Arrangement: Yes: With Child ADL: Independent History of Recent Travel: No Home Medications - Allergies Allergies/Adverse Reactions: Allergies Allergy/AdvReac Type Severity Reaction Status Date / Time No Known Allergies Allergy Verified 11/21/18 10:49 - Home Medications Home Medications: Ambulatory Orders Aspirin Coated [Ecotrin -] 81 mg PO DAILY tablet.ec 09/26/18 Glyburide [Micronase -] 5 mg PO DAILY@0700 tablet 09/26/18 Furosemide [Lasix -] 20 mg PO ASDIR 11/05/18 Acetaminophen 650 mg PO Q6H PRN 11/21/18 Gabapentin 200 mg PO HS 11/21/18 Gabapentin [Neurontin -] 100 mg PO BID 11/21/18 Levothyroxine [Synthroid -] 75 mcg PO DAILY@0700 11/21/18 Lidocaine 5% Patch [Lidoderm Patch -] 1 patch TP DAILY 11/21/18 Pantoprazole Sodium [Protonix] 40 mg PO DAILY 11/21/18 Polyethylene Glycol 3350 17 gm PO DAILY 11/21/18 Tamsulosin HCl 0.4 mg PO DAILY 11/21/18 traMADol HCL [Ultram -] 50 mg PO Q12H 11/21/18 Family Medical History Family History: Unremarkable Review of Systems - Review of Systems Constitutional: reports: Loss of Appetite, Weakness Eyes: reports: No Symptoms HENT: reports: No Symptoms Neck: reports: Decreased ROM Cardiovascular: reports: No Symptoms Respiratory: reports: No Symptoms Gastrointestinal: reports: Nausea Genitourinary: reports: No Symptoms Breasts: reports: No Symptoms Reported Musculoskeletal: reports: Back Pain, Extremity Pain, Muscle Weakness Integumentary: reports: No Symptoms Neurological: reports: No Symptoms Endocrine: reports: No Symptoms Hematology/Lymphatic: reports: No Symptoms Psychiatric: reports: No Symptoms Physical Examination Vital Signs: Vital Signs Temperature 97.6 F 11/22/18 10:00 Pulse Rate 77 11/22/18 10:00 Respiratory Rate 18 11/22/18 10:00 Blood Pressure 135/72 11/22/18 10:00 O2 Sat by Pulse Oximetry (%) 98 11/22/18 09:00 Constitutional: Yes: Calm Eyes: Yes: WNL HENT: Yes: WNL Neck: Yes: Decreased ROM Cardiovascular: Yes: Regular Rate and Rhythm Respiratory: Yes: WNL Gastrointestinal: Yes: WNL ...Rectal Exam: Yes: Deferred Renal/: Yes: WNL Breast(s): Yes: WNL Musculoskeletal: Yes: Joint Stiffness Extremities: Yes: WNL Edema: No Edema: LLE: Trace, RLE: Trace Peripheral Pulses WNL: Yes Integumentary: Yes: WNL Neurological: Yes: Weakness ...Motor Strength: WNL Labs: CBC, BMP 11/22/18 06:26 11/22/18 06:26 Assessment/Plan palitive care nutritionost to see pt ppi given po steroid for ? lupus jt pains sdale 5
[2018-11-22] MEDS: HEPARIN INFUSION - 25,000 UNITS/500 ML INFUS.BAG IVPB SCH (15:01)
--- NOTE | 2018-11-22 16:04 | PN ---
Progress Note, Physician History of Present Illness: seen and examined today in [facility]. states she is feeling a little better today. - Current Medication List Current Medications: Active Medications Acetaminophen (Tylenol -) 650 mg PO Q4H PRN PRN Reason: PAIN LEVEL 6-10 Last Admin: 11/22/18 10:01 Dose: 650 mg Furosemide (Lasix -) 20 mg PO MOFR@1000 ERNIE Last Admin: 11/22/18 12:42 Dose: 20 mg Glyburide (Diabeta -) 5 mg PO DAILY@0700 [facility] Last Admin: 11/22/18 06:11 Dose: 5 mg Heparin Sodium/Dextrose (Heparin Infusion -) 25,000 units in 500 mls @ 20 mls/ hr IVPB TITR [facility]; Protocol Last Admin: 11/22/18 15:01 Dose: 1,000 units/hr, 20 mls/hr Levothyroxine Sodium (Synthroid -) 75 mcg PO DAILY@0700 [facility] Last Admin: 11/22/18 06:11 Dose: 75 mcg Pantoprazole Sodium (Protonix -) 40 mg PO DAILY [facility] Last Admin: 11/22/18 10:01 Dose: 40 mg Prednisone (Deltasone -) 10 mg PO DAILY [facility] - Objective Vital Signs: Vital Signs Temperature 97.6 F 11/22/18 16:02 Pulse Rate 72 11/22/18 16:02 Respiratory Rate 18 11/22/18 16:02 Blood Pressure 142/63 11/22/18 16:02 O2 Sat by Pulse Oximetry (%) 98 11/22/18 09:00 Constitutional: Yes: No Distress, Calm Eyes: Yes: Conjunctiva Clear, EOM Intact HENT: Yes: Atraumatic, Normocephalic Neck: Yes: Supple, Trachea Midline Cardiovascular: Yes: Regular Rate and Rhythm, S1, S2. No: Bradycardia, Tachycardia, Pulse Irregular, Bruit, JVD, Gallop, Murmur, Rub, S3, S4, Varicosities Respiratory: Yes: Regular. No: Rales, Rhonchi, Wheezes Gastrointestinal: Yes: Normal Bowel Sounds, Soft. No: Distention, Tenderness Extremities: Yes: WNL Edema: No Peripheral Pulses WNL: Yes Peripheral Pulses: Left Doralis Pedis: 2+, Right Dorsalis Pedis: 2+ Neurological: Yes: Alert, Oriented Psychiatric: Yes: Alert, Oriented Labs: CBC, BMP 11/22/18 06:26 11/22/18 06:26 INR, PTT INR 1.23 (0.83-1.09) H 11/22/18 06:26 - ....Imaging Chest X-ray: Report Reviewed, Image Reviewed EKG: Report Reviewed, Image Reviewed Other: Report Reviewed, Image Reviewed Assessment/Plan 87 year old woman with a pmh HTN, HLD, DMII, CKD, SLE, hypothyroid, resp failure on O2, recently discharged after cholecystectomy to [facility] rehab sent to ER from [facility] after c/o diffuse body aches, chills, sob requiring 6L O2. A troponin was sent at [facility] and was elevated. pt states she feels cold and has diffuse body aches. denies chest pain. Elevated troponin-unlikely type 1 [place], more likely type 2 [place] in setting of infection and CKD -troponin trended down -with normal CK level -no chest pain -ekg possible ischemia -recent admission with cholecystectomy -pt complaints of diffuse body aches and chills and has low grade fever -suspect infectious process as source of symptoms -also noted to have elevated TSH level on recent admission, would repeat TSH and further TFTs as needed -cont home ASA 81mg daily -no further cardiac work up is recommended at this time -ok to dc tele -does not require heparin gtt for nstemi -will change to heparin Sub Q for DVT ppx echo showed normal LVEF and wall motion. RVE noted with normal RV systolic function, elevated RVSP at least moderate PAH. 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 Pulmonary embolism could be considered in the setting of recent hospitalization and surgery but echo findings do not appear to be a significant change from prior. Will see as needed. Please call with any additional questions.
[2018-11-22] MEDS: HEPARIN NA (PORCINE) 5,000 UNITS/ML 1ML VIAL SQ SCH (21:29)
[2018-11-23] MEDS ORDERED: PT OWN MED DRAWER 7, Y5N ONE ×2 (06:08→08:47)
[2018-11-23] MEDS: LEVOTHYROXINE NA 75 MCG TABLET (FP) PO SCH (06:40)
[2018-11-23] MEDS: HEPARIN NA (PORCINE) 5,000 UNITS/ML 1ML VIAL SQ SCH ×3 (06:40→21:27)
[2018-11-23] MEDS: glyBURIDE 5 MG TABLET (UD) PO SCH (06:40)
[2018-11-23 07:47] LABS: BASO % 0.6 % (0-2.0); EOS % 1.5 % (0-4.5); HEMATOCRIT 32.5 % (32.4-45.2); HEMOGLOBIN 10.7 GM/dL (10.7-15.3); LYMPH % 8.1 % (8-40); MCH 28.1 pg (25.7-33.7); MCHC 32.9 g/dl (32.0-36.0); MEAN CELL VOLUME 85.5 fl (80-96); MEAN PLT VOLUME 8.3 fl (7.5-11.1); MONO % 5.9 % (3.8-10.2); NEUT % 83.9 % (42.8-82.8); PLATELET COUNT 369 K/MM3 (134-434); RDW 16.3 % (11.6-15.6); WHITE BLOOD COUNT 7.8 K/mm3 (4.0-10.0)
[2018-11-23 07:52] LABS: BLOOD UREA NITROGEN 52.5 mg/dL (7-18); CALCIUM 8.5 mg/dL (8.5-10.1); CREATININE 1.6 mg/dL (0.55-1.3); POTASSIUM 4.3 mmol/L (3.5-5.1)
[2018-11-23] MEDS: ACETAMINOPHEN 325 MG TABLET (FP) PO PRN ×2 (08:34→17:18)
[2018-11-23] MEDS: predniSONE 10 MG TABLET (UD) PO SCH (09:43)
[2018-11-23] MEDS: PANTOPRAZOLE 40 MG TABLET (FP) PO SCH (09:43)
--- NOTE | 2018-11-23 10:00 | EKG ---
Test Reason : Blood Pressure : / mmHG Vent. Rate : 071 BPM Atrial Rate : 071 BPM P-R Int : 160 ms QRS Dur : 082 ms QT Int : 424 ms P-R-T Axes : 045 046 -31 degrees QTc Int : 460 ms NORMAL SINUS RHYTHM ABNORMAL ECG WHEN COMPARED WITH ECG OF 21-NOV-2018 14:26, NONSPECIFIC T WAVE ABNORMALITY NO LONGER EVIDENT IN LATERAL LEADS Confirmed by GERMAINE HUFF MD ([id number]) on 11/23/2018 9:59:33 AM Referred By: Confirmed By:GERMAINE HUFF MD
[2018-11-23] MEDS: traMADol HCL 50 MG TABLET PO PRN (11:17)
[2018-11-23] MEDS: LINEZOLID 600 MG PREMIX BAG 600 MG/300 ML BAG IVPB SCH ×2 (14:17→21:28)
[2018-11-24] MEDS ORDERED: PT OWN MED DRAWER 7, Y5N ONE ×2 (05:25→12:58)
[2018-11-24] MEDS: glyBURIDE 5 MG TABLET (UD) PO SCH (06:13)
[2018-11-24] MEDS: HEPARIN NA (PORCINE) 5,000 UNITS/ML 1ML VIAL SQ SCH ×3 (06:13→22:59)
[2018-11-24] MEDS: LEVOTHYROXINE NA 75 MCG TABLET (FP) PO SCH (06:13)
[2018-11-24 06:37] LABS: BLOOD UREA NITROGEN 45.5 mg/dL (7-18); CALCIUM 8.7 mg/dL (8.5-10.1); CREATININE 1.4 mg/dL (0.55-1.3); POTASSIUM 4.9 mmol/L (3.5-5.1)
[2018-11-24 07:49] LABS: HEMATOCRIT 34.1 % (32.4-45.2); HEMOGLOBIN 10.8 GM/dL (10.7-15.3); MCH 27.5 pg (25.7-33.7); MEAN CELL VOLUME 87.3 fl (80-96); RBC 3.91 M/mm3 (3.60-5.2); WHITE BLOOD COUNT 8.1 K/mm3 (4.0-10.0)
[2018-11-24 07:50] LABS: LYMPH % 9.4 % (8-40); MCHC 31.6 g/dl (32.0-36.0); MEAN PLT VOLUME 8.7 fl (7.5-11.1); NEUT % 80.5 % (42.8-82.8); PLATELET COUNT 351 K/MM3 (134-434); RDW 16.3 % (11.6-15.6)
[2018-11-24 07:51] LABS: BASO % 0.6 % (0-2.0); EOS % 1.1 % (0-4.5); MONO % 8.4 % (3.8-10.2)
--- NOTE | 2018-11-24 10:12 | CON.ID ---
Consult Consult Specialty:: infectious diseases Referred by:: s Reason for Consultation:: uti,vre - History of Present Illness Chief Complaint: abd pain History of Present Illness: 87 year old female with pmhx of lupus, ckd, htn, hld, hypithyroidism, and dm who was sent in for positive troponins. She had a recent cholecystectomy. She did have chest pain earlier. She denies chest pain now. patient was worked up and found to ahve vre in the urine.Patients main complaints is her abd pain currently she feels pain in her belly - History Source History Provided By: Patient, Medical Record Limitations to Obtaining History: Poor Historian - Past Medical History Cardio/Vascular: Yes: CHF (pt with dil pacreatic duct was waiting mrcp out pt never got to it), HTN, Other (perivardial cyst) Gastrointestinal: Yes: GERD, Other (ruq pain to deep palp) ...: No Musculoskeletal: Yes: Bursitis, Chronic low back pain Rheumatology: Yes: Lupus Endocrine: Yes: Diabetes Mellitus, Hypothyroidism - Past Surgical History Past Surgical History: Yes: None - Alcohol/Substance Use Hx Alcohol Use: No History of Substance Use: reports: None - Smoking History Smoking history: Unknown if ever smoked (spoke daughter will dicuss dnr dni w family) Have you smoked in the past 12 months: No If you are a former smoker, when did you quit?: 25 years ago - Social History ADL: Independent History of Recent Travel: No Home Medications - Allergies Allergies/Adverse Reactions: Allergies Allergy/AdvReac Type Severity Reaction Status Date / Time No Known Allergies Allergy Verified 11/21/18 10:49 - Home Medications Home Medications: Ambulatory Orders Aspirin Coated [Ecotrin -] 81 mg PO DAILY tablet.ec 09/26/18 Glyburide [Micronase -] 5 mg PO DAILY@0700 tablet 09/26/18 Furosemide [Lasix -] 20 mg PO ASDIR 11/05/18 Acetaminophen 650 mg PO Q6H PRN 11/21/18 Gabapentin 200 mg PO HS 11/21/18 Gabapentin [Neurontin -] 100 mg PO BID 11/21/18 Levothyroxine [Synthroid -] 75 mcg PO DAILY@0700 11/21/18 Lidocaine 5% Patch [Lidoderm Patch -] 1 patch TP DAILY 11/21/18 Pantoprazole Sodium [Protonix] 40 mg PO DAILY 11/21/18 Polyethylene Glycol 3350 17 gm PO DAILY 11/21/18 Tamsulosin HCl 0.4 mg PO DAILY 11/21/18 traMADol HCL [Ultram -] 50 mg PO Q12H 11/21/18 Review of Systems - Review of Systems Constitutional: reports: No Symptoms Eyes: reports: No Symptoms HENT: reports: No Symptoms Neck: reports: No Symptoms Cardiovascular: reports: Chest Pain Respiratory: reports: No Symptoms Gastrointestinal: reports: Abdominal Pain Genitourinary: reports: No Symptoms Musculoskeletal: reports: No Symptoms Integumentary: reports: No Symptoms Neurological: reports: No Symptoms Endocrine: reports: No Symptoms Hematology/Lymphatic: reports: No Symptoms Psychiatric: reports: No Symptoms Physical Exam Vital Signs: Vital Signs Temperature 98.0 F 11/24/18 06:00 Pulse Rate 80 11/24/18 06:00 Respiratory Rate 18 11/24/18 06:00 Blood Pressure 149/76 11/24/18 06:00 O2 Sat by Pulse Oximetry (%) 96 11/23/18 21:00 Constitutional: Yes: Thin, Other (failure to therive) Neck: Yes: Supple Cardiovascular: Yes: Pulse Irregular, S1, S2 Respiratory: Yes: Regular, CTA Bilaterally Gastrointestinal: Yes: Soft, Hypoactive Bowel Sounds, Tenderness (generalized) Musculoskeletal: Yes: WNL Extremities: Yes: WNL Neurological: Yes: Alert, Oriented Psychiatric: Yes: Alert, Oriented Labs: CBC, BMP 11/24/18 05:24 11/24/18 05:24 Imaging - Results Chest X-ray: Report Reviewed, Image Reviewed X-ray: Report Reviewed, Image Reviewed Cat Scan: Image Reviewed Assessment/Plan positive troponin CKD H/O lupus abd pain atrophic right kidney pleural effusions uti i am worried about her bad pain at the moment i am not going to treat her uti close watch hydration monitor the abd pain
[2018-11-24] MEDS: traMADol HCL 50 MG TABLET PO PRN ×2 (10:55→22:59)
[2018-11-24] MEDS: PANTOPRAZOLE 40 MG TABLET (FP) PO SCH (10:55)
[2018-11-24] MEDS: predniSONE 10 MG TABLET (UD) PO SCH (10:55)
[2018-11-24] MEDS: LINEZOLID 600 MG PREMIX BAG 600 MG/300 ML BAG IVPB SCH (11:54)
--- NOTE | 2018-11-24 11:55 | PN ---
Progress Note, Physician Chief Complaint: less abd pain scale2 vss bm pos tolerating diet not much quantaty - Current Medication List Current Medications: Active Medications Acetaminophen (Tylenol -) 650 mg PO Q4H PRN PRN Reason: PAIN LEVEL 6-10 Last Admin: 11/23/18 17:18 Dose: 650 mg Furosemide (Lasix -) 20 mg PO MOFR@1000 [facility] Last Admin: 11/22/18 12:42 Dose: 20 mg Glyburide (Diabeta -) 5 mg PO DAILY@0700 [facility] Last Admin: 11/24/18 06:13 Dose: Not Given Heparin Sodium (Porcine) (Heparin -) 5,000 unit SQ TID [facility] Last Admin: 11/24/18 06:13 Dose: Not Given Linezolid (Zyvox 600 Mg Premix Bag (Restricted To Id) -) 600 mg in 300 mls @ 300 mls/hr IVPB BID [facility] Levothyroxine Sodium (Synthroid -) 75 mcg PO DAILY@0700 [facility] Last Admin: 11/24/18 06:13 Dose: Not Given Pantoprazole Sodium (Protonix -) 40 mg PO DAILY [facility] Last Admin: 11/24/18 10:55 Dose: 40 mg Prednisone (Deltasone -) 10 mg PO DAILY [facility] Last Admin: 11/24/18 10:55 Dose: 10 mg Tramadol HCl (Ultram -) 50 mg PO BID PRN PRN Reason: PAIN LEVEL 6-10 Last Admin: 11/24/18 10:55 Dose: 50 mg - Objective Vital Signs: Vital Signs Temperature 98.0 F 11/24/18 06:00 Pulse Rate 80 11/24/18 06:00 Respiratory Rate 18 11/24/18 06:00 Blood Pressure 149/76 11/24/18 06:00 O2 Sat by Pulse Oximetry (%) 96 11/23/18 21:00 Constitutional: Yes: Calm Eyes: Yes: WNL HENT: Yes: WNL Neck: Yes: Decreased ROM Cardiovascular: Yes: WNL Respiratory: Yes: WNL Gastrointestinal: Yes: WNL ...Rectal Exam: Yes: Deferred Genitourinary: Yes: WNL Breast(s): Yes: WNL Musculoskeletal: Yes: Back Pain, Joint Stiffness Extremities: Yes: WNL Edema: No Peripheral Pulses WNL: Yes Integumentary: Yes: WNL Neurological: Yes: WNL ...Motor Strength: WNL Psychiatric: Yes: WNL Labs: CBC, BMP 11/24/18 05:24 11/24/18 05:24 INR, PTT INR 1.23 (0.83-1.09) H 11/22/18 06:26 Assessment/Plan isolation no atxb? yet ? colonization rush po for [facility] chk labs in am
[2018-11-24] MEDS ORDERED: ONDANSETRON 8 MG TABLET (FP) PO PRN (11:57)
[2018-11-24] MEDS ORDERED: ONDANSETRON 4 MG/2 ML VIAL IVPUSH PRN (13:03)
[2018-11-25] MEDS ORDERED: PT OWN MED DRAWER 7, Y5N ONE ×2 (05:08→10:08)
[2018-11-25] MEDS: LEVOTHYROXINE NA 75 MCG TABLET (FP) PO SCH (06:12)
[2018-11-25] MEDS: glyBURIDE 5 MG TABLET (UD) PO SCH ×2 (06:13→06:21)
[2018-11-25] MEDS: HEPARIN NA (PORCINE) 5,000 UNITS/ML 1ML VIAL SQ SCH ×3 (06:13→23:47)
[2018-11-25 07:11] LABS: BASO % 0.6 % (0-2.0); EOS % 1.3 % (0-4.5); HEMATOCRIT 33.6 % (32.4-45.2); HEMOGLOBIN 10.8 GM/dL (10.7-15.3); LYMPH % 15.6 % (8-40); MCH 27.7 pg (25.7-33.7); MCHC 32.2 g/dl (32.0-36.0); MEAN CELL VOLUME 85.9 fl (80-96); NEUT % 73.5 % (42.8-82.8); PLATELET COUNT 412 K/MM3 (134-434); RBC 3.91 M/mm3 (3.60-5.2); RDW 16.5 % (11.6-15.6); WHITE BLOOD COUNT 5.9 K/mm3 (4.0-10.0)
[2018-11-25 07:26] LABS: BLOOD UREA NITROGEN 49.1 mg/dL (7-18); CALCIUM 9.3 mg/dL (8.5-10.1); CREATININE 1.5 mg/dL (0.55-1.3)
[2018-11-25] MEDS: PANTOPRAZOLE 40 MG TABLET (FP) PO SCH (09:20)
[2018-11-25] MEDS: ACETAMINOPHEN 325 MG TABLET (FP) PO PRN (09:20)
[2018-11-25] MEDS: predniSONE 10 MG TABLET (UD) PO SCH (09:20)
--- NOTE | 2018-11-25 10:27 | EKG ---
Test Reason : Blood Pressure : / mmHG Vent. Rate : 079 BPM Atrial Rate : 079 BPM P-R Int : 154 ms QRS Dur : 080 ms QT Int : 382 ms P-R-T Axes : 066 025 -02 degrees QTc Int : 438 ms NORMAL SINUS RHYTHM ABNORMAL ECG WHEN COMPARED WITH ECG OF 22-NOV-2018 14:06, T WAVE VARIATION Confirmed by ERNST MINER MD ([id number]) on 11/25/2018 10:27:19 AM Referred By: Mary MENG Confirmed By:ERNST MINER MD
[2018-11-25] MEDS: FUROSEMIDE 20 MG TABLET (FP) PO SCH (10:31)
--- NOTE | 2018-11-25 11:35 | PN ---
Progress Note, Physician History of Present Illness: feels better no complaints plan for imaging studies - Current Medication List Current Medications: Active Medications Acetaminophen (Tylenol -) 650 mg PO Q4H PRN PRN Reason: PAIN LEVEL 6-10 Last Admin: 11/25/18 09:20 Dose: 650 mg Furosemide (Lasix -) 20 mg PO MOFR@1000 [facility] Last Admin: 11/25/18 10:31 Dose: 20 mg Glyburide (Diabeta -) 5 mg PO DAILY@0700 [facility] Last Admin: 11/25/18 06:21 Dose: Not Given Heparin Sodium (Porcine) (Heparin -) 5,000 unit SQ TID [facility] Last Admin: 11/25/18 06:13 Dose: 5,000 unit Levothyroxine Sodium (Synthroid -) 75 mcg PO DAILY@0700 [facility] Last Admin: 11/25/18 06:12 Dose: 75 mcg Ondansetron HCl (Zofran Injection) 4 mg IVPUSH Q8H PRN PRN Reason: NAUSEA AND/OR VOMITING Last Admin: 11/24/18 13:27 Dose: 4 mg Pantoprazole Sodium (Protonix -) 40 mg PO DAILY [facility] Last Admin: 11/25/18 09:20 Dose: 40 mg Prednisone (Deltasone -) 10 mg PO DAILY [facility] Last Admin: 11/25/18 09:20 Dose: 10 mg Tramadol HCl (Ultram -) 50 mg PO BID PRN PRN Reason: PAIN LEVEL 6-10 Last Admin: 11/24/18 22:59 Dose: 50 mg - Objective Vital Signs: Vital Signs Temperature 98 F 11/25/18 10:00 Pulse Rate 76 11/25/18 10:00 Respiratory Rate 19 11/25/18 10:00 Blood Pressure 156/87 11/25/18 10:00 O2 Sat by Pulse Oximetry (%) 98 11/25/18 09:00 Constitutional: Yes: No Distress, Other (failure to thrive) Cardiovascular: Yes: S1, S2 Respiratory: Yes: Regular, CTA Bilaterally Gastrointestinal: Yes: Normal Bowel Sounds, Soft Musculoskeletal: Yes: WNL Extremities: Yes: WNL Neurological: Yes: Alert, Oriented Psychiatric: Yes: Alert, Oriented Labs: CBC, BMP 11/25/18 06:40 11/25/18 06:40 INR, PTT INR 1.23 (0.83-1.09) H 11/22/18 06:26 Assessment/Plan positive troponin CKD H/O lupus abd pain atrophic right kidney pleural effusions uti continue current mgmt await for imaging studies rest as per the team nutrition
--- NOTE | 2018-11-25 13:36 | PN ---
Progress Note, Physician History of Present Illness: Pt seen and examined at bedside. She appears comfortable. She denies shortness of breath. - Current Medication List Current Medications: Active Medications Acetaminophen (Tylenol -) 650 mg PO Q4H PRN PRN Reason: PAIN LEVEL 6-10 Last Admin: 11/25/18 09:20 Dose: 650 mg Furosemide (Lasix -) 20 mg PO MOFR@1000 [facility] Last Admin: 11/25/18 10:31 Dose: 20 mg Glyburide (Diabeta -) 5 mg PO DAILY@0700 [facility] Last Admin: 11/25/18 06:21 Dose: Not Given Heparin Sodium (Porcine) (Heparin -) 5,000 unit SQ TID [facility] Last Admin: 11/25/18 13:15 Dose: 5,000 unit Levothyroxine Sodium (Synthroid -) 75 mcg PO DAILY@0700 [facility] Last Admin: 11/25/18 06:12 Dose: 75 mcg Ondansetron HCl (Zofran Injection) 4 mg IVPUSH Q8H PRN PRN Reason: NAUSEA AND/OR VOMITING Last Admin: 11/24/18 13:27 Dose: 4 mg Pantoprazole Sodium (Protonix -) 40 mg PO DAILY [facility] Last Admin: 11/25/18 09:20 Dose: 40 mg Prednisone (Deltasone -) 10 mg PO DAILY [facility] Last Admin: 11/25/18 09:20 Dose: 10 mg Tramadol HCl (Ultram -) 50 mg PO BID PRN PRN Reason: PAIN LEVEL 6-10 Last Admin: 11/24/18 22:59 Dose: 50 mg - Objective Vital Signs: Vital Signs Temperature 98 F 11/25/18 10:00 Pulse Rate 76 11/25/18 10:00 Respiratory Rate 19 11/25/18 10:00 Blood Pressure 156/87 11/25/18 10:00 O2 Sat by Pulse Oximetry (%) 98 11/25/18 09:00 Constitutional: Yes: Calm Eyes: Yes: Conjunctiva Clear HENT: Yes: Atraumatic Neck: Yes: Supple Cardiovascular: Yes: S1, S2 Respiratory: Yes: On Nasal O2 Gastrointestinal: Yes: Soft Genitourinary: Yes: Incontinence Musculoskeletal: Yes: Joint Stiffness, Muscle Weakness Edema: No Neurological: Yes: Oriented Psychiatric: Yes: Oriented Labs: CBC, BMP 11/25/18 06:40 11/25/18 06:40 INR, PTT INR 1.23 (0.83-1.09) H 11/22/18 06:26 Problem List - Problems (1) Renal insufficiency Code(s): N28.9 - DISORDER OF KIDNEY AND URETER, UNSPECIFIED Assessment/Plan Current Medications Generic Name Dose Route Start Last Admin Trade Name Freq PRN Reason Stop Dose Admin Acetaminophen 650 mg 11/21/18 17:55 11/25/18 09:20 Tylenol - PO 650 mg Q4H PRN Administration PAIN LEVEL 6-10 Furosemide 20 mg 11/22/18 12:45 11/25/18 10:31 Lasix - PO 20 mg MOFR@1000 [facility] Administration Glyburide 5 mg 11/22/18 07:00 11/25/18 06:21 Diabeta - PO Not Given DAILY@0700 [facility] Heparin Sodium (Porcine) 5,000 unit 11/22/18 22:00 11/25/18 13:15 Heparin - SQ 5,000 unit TID [facility] Administration Levothyroxine Sodium 75 mcg 11/22/18 07:00 11/25/18 06:12 Synthroid - PO 75 mcg DAILY@0700 [facility] Administration Ondansetron HCl 4 mg 11/24/18 13:03 11/24/18 13:27 Zofran Injection IVPUSH 4 mg Q8H PRN Administration NAUSEA AND/OR VOMITING Pantoprazole Sodium 40 mg 11/22/18 10:00 11/25/18 09:20 Protonix - PO 40 mg DAILY ERNIE Administration Prednisone 10 mg 11/23/18 10:00 11/25/18 09:20 Deltasone - PO 10 mg DAILY ERNIE Administration Tramadol HCl 50 mg 11/23/18 11:09 11/24/18 22:59 Ultram - PO 50 mg BID PRN Administration PAIN LEVEL 6-10 Impression positive troponin CKD H/O lupus proteinuria atrophic right kidney pleural effusions Plan - renal function is stable - lasix as scheduled - monitor volume status - avoid nsaids if possible
[2018-11-26] MEDS: ACETAMINOPHEN 325 MG TABLET (FP) PO PRN ×2 (01:28→21:06)
[2018-11-26] MEDS: glyBURIDE 5 MG TABLET (UD) PO SCH (06:55)
[2018-11-26] MEDS: LEVOTHYROXINE NA 75 MCG TABLET (FP) PO SCH (06:55)
[2018-11-26] MEDS: HEPARIN NA (PORCINE) 5,000 UNITS/ML 1ML VIAL SQ SCH ×3 (06:55→21:07)
[2018-11-26 08:22] LABS: BASO % 0.6 % (0-2.0); EOS % 1.6 % (0-4.5); HEMOGLOBIN 11.1 GM/dL (10.7-15.3); LYMPH % 16.3 % (8-40); MCH 27.7 pg (25.7-33.7); MCHC 32.5 g/dl (32.0-36.0); MEAN CELL VOLUME 85.1 fl (80-96); MEAN PLT VOLUME 8.4 fl (7.5-11.1); MONO % 9.5 % (3.8-10.2); PLATELET COUNT 456 K/MM3 (134-434); RDW 16.4 % (11.6-15.6); WHITE BLOOD COUNT 6.2 K/mm3 (4.0-10.0)
[2018-11-26] MEDS ORDERED: TAMSULOSIN HCL 0.4 MG CAP PO SCH (08:30)
[2018-11-26 08:59] LABS: ALBUMIN 2.7 g/dl (3.4-5.0); BILIRUBIN,TOTAL 0.5 mg/dL (0.2-1); CALCIUM 8.8 mg/dL (8.5-10.1); CREATININE 1.5 mg/dL (0.55-1.3); POTASSIUM 4.8 mmol/L (3.5-5.1); TOT PROT 6.2 g/dl (6.4-8.2)
--- NOTE | 2018-11-26 09:44 | RAPID ---
Physical Examination Vital Signs: Vital Signs Temperature 97.6 F 11/26/18 08:55 Pulse Rate 115 H 11/26/18 09:00 Respiratory Rate 16 11/26/18 09:00 Blood Pressure 152/112 H 11/26/18 09:00 O2 Sat by Pulse Oximetry (%) 96 11/25/18 23:00 Vitals at bedside: T 97.6F, BP 166/89, HR 118, O2% 84, RR 24; Glucose 141 Findings/Remarks: RR called for AMS, desaturations to mid-80s. Patient found to be nonverbal, not following commands. Head turned, favoring Right-side. Constitutional: Yes: No Distress, Other (moans) Eyes: Yes: Conjunctiva Clear. No: Ptosis, Sclera Icterus, Tearing HENT: No: Drooling, Epistaxis Neck: Yes: Supple. No: Lymphadenopathy, Tenderness Cardiovascular: Yes: Tachycardia, S1, S2 Respiratory: Yes: CTA Bilaterally. No: Accessory Muscle Use Gastrointestinal: Yes: Soft. No: Distention, Tenderness Musculoskeletal: No: Joint Stiffness Extremities: Yes: Other (thin extremities). No: Calf Tenderness, Deformity, Erythema Peripheral Pulses: Left Radial: 2+, Right Radial: 2+, Left Doralis Pedis: 1+, Right Dorsalis Pedis: 1+ Integumentary: No: Rash Neurological: Yes: Other (NIHSS ~6(aphasic, not following commands, withdraws to pain) all four extremities withdrawing to painful stimuli). No: Seizure Labs: CBC, BMP 11/26/18 06:33 11/26/18 06:33 Rapid Response - Rapid Response Assessment: Ceasar Remy called: -h/o normal carotid(Sep 2018) and echo(August 2018) as per Dr Rasheed -CT ordered -- acute vs subacute infarcts -CTA brain and neck -- pending -started fosphenotoin for seizure prophylaxis -NeuroYessi) consulted -- PA assessed Suspected CVA Exam Time (Ceasar Remy Time): 09:00 CT Stroke ordered: Yes Stat "Ceasar Remy" Consult to Neurology called & responded: Yes Last Known Well (Date): 11/26/18 Last Known Well (Time): 04:00 Symptom Discovery (Date): 11/26/18 Symptom Discovery (Time): 09:00 - NIH Stroke Scale/Score Level of consciousness: Alert Ask patient to open & close eyes; make fist and let go: Both incorrect
[2018-11-26 09:56] LABS: ARTERIAL BLD GAS O2 SATURATION 81.3 % (95-98); ARTERIAL BLOOD GAS BASE EXCESS -2.2 meq/l (-2-2); ARTERIAL BLOOD GAS PCO2 64.6 mmHg (35-45); ARTERIAL BLOOD GAS PO2 57.8 mmHg (80-100); ARTERIAL BLOOD GAS pH 7.23 (7.35-7.45)
[2018-11-26 09:57] LABS: ALLENS TEST POSITIVE
[2018-11-26] MEDS ORDERED: FOSPHENYTOIN SODIUM 1,000 MG in SODIUM CHLORIDE 100 ML IVPB STA (10:47)
--- NOTE | 2018-11-26 10:51 | CONSULT ---
Consultation: REQUESTING PROVIDER: Sidney Lubin CONSULT REQUEST: We have been asked to medically evaluate this patient for ( Acute stroke ). HISTORY OF PRESENT ILLNESS: 87 year old woman with a pmh HTN, HLD, DMII, CKD, SLE, hypothyroid, resp failure on O2, recently discharged after cholecystectomy to [facility] rehab sent to ER from [facility] after c/o diffuse body aches, chills, sob requiring 6L O2. A troponin was sent at [facility] and was elevated. lars gautam was called today after pt was non responsive. REVIEW OF SYSTEMS: not able to obtain PHYSICAL EXAMINATION Vital Signs - 24 hr 11/25/18 11/25/18 11/25/18 15:23 18:00 23:00 Temperature 97.6 F 97.6 F 97.6 F Pulse Rate 86 74 71 Respiratory 16 18 20 Rate Blood Pressure 151/81 152/65 143/72 O2 Sat by Pulse 96 Oximetry (%) 11/26/18 11/26/18 11/26/18 02:00 06:00 08:55 Temperature 97.6 F 97.3 F L 97.6 F Pulse Rate 67 83 119 H Respiratory 20 20 16 Rate Blood Pressure 146/72 160/53 L 166/89 O2 Sat by Pulse Oximetry (%) 11/26/18 09:00 Temperature Pulse Rate 115 H Respiratory 16 Rate Blood Pressure 152/112 H O2 Sat by Pulse Oximetry (%) GENERAL: Awake, alert, follow simple commands , responds to verbal stimuli and painful stimuli HEAD: NC/AT EYES: Pupils equal, round and reactive to light B/L , sclera anicteric, EARS, NOSE, THROAT: Ears normal, nares patent, oropharynx clear without exudates. Dry mucous membranes. NECK: supple LUNGS: decrease breath sounds at the bases HEART: sinus tachy , normal S1 and S2 without murmur, rub or gallop. ABDOMEN: Soft, diffuse tenderness, not distended, normoactive bowel sounds, MUSCULOSKELETAL: can move all ext , some rigidity in upper ext right more gaston left . UPPER EXTREMITIES: 2+ pulses, warm, well-perfused. No cyanosis. No peripheral edema.right arm more rigid than left arm. LOWER EXTREMITIES: 2+ pulses, warm, well-perfused. No calf tenderness. No peripheral edema. Babinski upward , sensation intact NEUROLOGICAL: Awake , alet , non verbal , gait not observed , ANN MARIE, no facial asymmetry , left side neglect , Laboratory Results - last 24 hr 11/25/18 11/26/18 11/26/18 16:51 06:16 06:33 WBC 6.2 RBC 4.00 Hgb 11.1 Hct 34.0 MCV 85.1 MCH 27.7 MCHC 32.5 RDW 16.4 H Plt Count 456 H MPV 8.4 Absolute Neuts (auto) 4.5 Neutrophils % 72.0 Lymphocytes % 16.3 Monocytes % 9.5 Eosinophils % 1.6 Basophils % 0.6 Nucleated RBC % 0 Anticoagulation Therapy Puncture Site ABG pH ABG pCO2 at Pt Temp ABG pO2 at Pt Temp ABG HCO3 ABG O2 Sat (Measured) ABG O2 Content ABG Base Excess Dov Test O2 Delivery Device Oxygen Flow Rate Vent Mode Vent Rate Mechanical Rate Pressure Support Vent Sodium Potassium Chloride Carbon Dioxide Anion Gap BUN Creatinine Est GFR (CKD-EPI)AfAm Est GFR (CKD-EPI)NonAf POC Glucometer 213 121 Random Glucose Calcium Total Bilirubin AST ALT Alkaline Phosphatase Total Protein Albumin 11/26/18 11/26/18 11/26/18 06:33 09:00 09:05 WBC RBC Hgb Hct MCV MCH MCHC RDW Plt Count MPV Absolute Neuts (auto) Neutrophils % Lymphocytes % Monocytes % Eosinophils % Basophils % Nucleated RBC % Anticoagulation Therapy No Result Required. Puncture Site Right radial ABG pH 7.23 L ABG pCO2 at Pt Temp 64.6 H ABG pO2 at Pt Temp 57.8 L ABG HCO3 26.1 ABG O2 Sat (Measured) 81.3 L ABG O2 Content 14.1 ABG Base Excess -2.2 L Dov Test Positive O2 Delivery Device No Result Required. Oxygen Flow Rate 100 Vent Mode No Result Required. Vent Rate No Result Required. Mechanical Rate No Result Required. Pressure Support Vent No Result Required. Sodium 140 Potassium 4.8 Chloride 107 Carbon Dioxide 25 Anion Gap 9 BUN 54.0 H Creatinine 1.5 H Est GFR (CKD-EPI)AfAm 36.18 Est GFR (CKD-EPI)NonAf 31.22 POC Glucometer 141 Random Glucose 109 H Calcium 8.8 Total Bilirubin 0.5 AST 19 ALT 21 Alkaline Phosphatase 100 Total Protein 6.2 L Albumin 2.7 L Active Medications Generic Name Dose Route Start Last Admin Trade Name Freq PRN Reason Stop Dose Admin Acetaminophen 650 mg 11/21/18 17:55 10/08/19 01:28 Tylenol - PO 650 mg Q4H PRN Administration PAIN LEVEL 6-10 Furosemide 20 mg 11/22/18 12:45 11/25/18 10:31 Lasix - PO 20 mg MOFR@1000 ERNIE Administration Glyburide 5 mg 11/22/18 07:00 11/26/18 06:55 Diabeta - PO 5 mg DAILY@0700 [facility] Administration Heparin Sodium (Porcine) 5,000 unit 11/22/18 22:00 11/26/18 06:55 Heparin - SQ 5,000 unit TID ERNIE Administration Fosphenytoin Sodium 1,000 mg/ 120 mls @ 480 mls/hr 11/26/18 10:47 Sodium Chloride IVPB 11/26/18 11:01 ONCE STA Levothyroxine Sodium 75 mcg 11/22/18 07:00 11/26/18 06:55 Synthroid - PO 75 mcg DAILY@0700 [facility] Administration Ondansetron HCl 4 mg 11/24/18 13:03 11/24/18 13:27 Zofran Injection IVPUSH 4 mg Q8H PRN Administration NAUSEA AND/OR VOMITING Pantoprazole Sodium 40 mg 11/22/18 10:00 11/25/18 09:20 Protonix - PO 40 mg DAILY ERNIE Administration Prednisone 10 mg 11/23/18 10:00 11/25/18 09:20 Deltasone - PO 10 mg DAILY ENRIE Administration Tamsulosin HCl 0.4 mg 11/26/18 08:30 11/26/18 08:55 Flomax - PO Not Given DAILY@0830 [facility] Tramadol HCl 50 mg 11/23/18 11:09 11/24/18 22:59 Ultram - PO 50 mg BID PRN Administration PAIN LEVEL 6-10 CT Head Hypodensity noted in the left paracentral alicia concerning for the stroke. Acute , early subacute nonhemorrhagic infarct is noted in the right cerebellum. Well demarcated zone of decreased attenuation with loss of interface between the white and sanz matter is noted in the distribution of left posterior cerebral artery involving the left occipital lobe, left cingulate gyrus consistent with recent acute nonhemorrhagic infarct Subacute infarct is noted in the right posterior frontal lobe, right parietal lobe, right temporal lobe in the vascular territories of the branches of the right MCA with hyperdense changes confined to the cortex attributable to reperfusion, some of the changes may be related to petechial hemorrhage. No hyperdense hematoma is noted. White matter edema is noted. 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 * Ct scan reviwed * permissive HTN * BP monitor , pulse oxy * monitor in ICU * NPO , speech and swallow eval * Neuro check Q 1 hr * seizure precaution , aspiration precautions * Neuro consult Dr Vazquez * repeat CT head in 24 hour * Follwo CTA result Head and neck vessels * Echo cardiogram , Carotid duplex * Fosphenytoin load 1 gram equivalent IVP x 1 # JACIEL on CKD , Protienuria , Atropphic kidney right , * hold lasix, start 1/2 NS @ 500 CC/hr for 10 hours per nephrology * monitor volume status * avoid nsaids if possible # Troponinimea likley type II demand iscemia #pleural effusions # Hypothyriodism * cont synthroid #H/O lupus * cont steroids # FEN * * Monitor lytes * NPO # Proph * DVTS : Hep SQ BID * GI proph : PPI 40 Daily # Dispo monitor in ICU # Code status : full code Dispo: We will continue to follow the patient. Thank you for this consultative opportunity. Visit type - Emergency Visit Emergency Visit: Yes ED Registration Date: 11/21/18 Care time: The patient presented to the Emergency Department on the above date and was hospitalized for further evaluation of their emergent condition. - New Patient This patient is new to me today: Yes Date on this admission: 11/27/18 - Critical Care Critical Care patient: Yes Total Critical Care Time (in minutes): 45 Critical Care Statement: The care of this patient involved high complexity decision making to prevent further life threatening deterioration of the patient 's condition and/or to evaluate & treat vital organ system(s) failure or risk of failure. ATTENDING PHYSICIAN STATEMENT I saw and evaluated the patient. I reviewed the resident's note and discussed the case with the resident. I agree with the resident's findings and plan as documented. SUBJECTIVE: OBJECTIVE: ASSESSMENT AND PLAN:
--- NOTE | 2018-11-26 11:41 | PN ---
Progress Note, Physician History of Present Illness: PT EYES DEVIATED TO RT SIDE AND BECAME LETHARGIC ? POSTICTAL UNKNOWN YET PT NOT VERBAL BUT REPONDS TO VIGORAS STIMULI NOW C/O ABD PAIN SCALE5 8 NOW C/O PF ABD PAIN ? SUPRAPUBIC BLADDER SCAN PND ? ONEILL ON FLOMAX NOW UNABLE TO URINATE LAST PM SPEECH SWALL TO TO SEE HER NO NARCOTICS YET O 2 ICU? PND SPOKE TO [facility] IN AM AGAIN - Current Medication List Current Medications: Active Medications Acetaminophen (Tylenol -) 650 mg PO Q4H PRN PRN Reason: PAIN LEVEL 6-10 Last Admin: 11/26/18 01:28 Dose: 650 mg Furosemide (Lasix -) 20 mg PO MOFR@1000 [facility] Last Admin: 11/25/18 10:31 Dose: 20 mg Glyburide (Diabeta -) 5 mg PO DAILY@0700 [facility] Last Admin: 11/26/18 06:55 Dose: 5 mg Heparin Sodium (Porcine) (Heparin -) 5,000 unit SQ TID [facility] Last Admin: 11/26/18 06:55 Dose: 5,000 unit Levothyroxine Sodium (Synthroid -) 75 mcg PO DAILY@0700 [facility] Last Admin: 11/26/18 06:55 Dose: 75 mcg Ondansetron HCl (Zofran Injection) 4 mg IVPUSH Q8H PRN PRN Reason: NAUSEA AND/OR VOMITING Last Admin: 11/24/18 13:27 Dose: 4 mg Pantoprazole Sodium (Protonix -) 40 mg PO DAILY [facility] Last Admin: 11/25/18 09:20 Dose: 40 mg Prednisone (Deltasone -) 10 mg PO DAILY [facility] Last Admin: 11/25/18 09:20 Dose: 10 mg Tamsulosin HCl (Flomax -) 0.4 mg PO DAILY@0830 [facility] Last Admin: 11/26/18 08:55 Dose: Not Given - Objective Vital Signs: Vital Signs Temperature 97.6 F 11/26/18 08:55 Pulse Rate 115 H 11/26/18 09:00 Respiratory Rate 16 11/26/18 09:00 Blood Pressure 152/112 H 11/26/18 09:00 O2 Sat by Pulse Oximetry (%) 96 11/25/18 23:00 Constitutional: Yes: Anxious, Other (NON VERBAL) Eyes: Yes: WNL HENT: Yes: WNL Neck: Yes: Decreased ROM Cardiovascular: Yes: Regular Rate and Rhythm Respiratory: Yes: On Venti-Mask Gastrointestinal: Yes: Hypoactive Bowel Sounds ...Rectal Exam: Yes: Deferred Genitourinary: Yes: Other (SUPRAPUBIC PAIN?) Breast(s): Yes: WNL Musculoskeletal: Yes: Back Pain Extremities: Yes: WNL Edema: No Peripheral Pulses WNL: Yes Integumentary: Yes: WNL Neurological: Yes: Seizure (?) ...Motor Strength: RUE, RLE (WEAK TO GRASP) Psychiatric: Yes: WNL Labs: CBC, BMP 11/26/18 06:33 11/26/18 06:33 INR, PTT INR 1.23 (0.83-1.09) H 11/22/18 06:26 Assessment/Plan REAPEAT CT IN AM TO SEE IF EVOLVING CVA VS HEMARAGIC BP HIGH DO NOT LET SYSTOLIC GO BELOW 150 VLADIMIR TANNER TO SEE PT CONT HEPARIN IS ONLY SPOKE TO CARD DR SHAVER AGREES W PLAN TROP LEVEL AGIN EKG CONT O2 IS ICU ? WHEN BED AVAILABLE DIOGOATD [place] TO BE DON TO COMPLETE CVA W/U
--- NOTE | 2018-11-26 11:47 | CONSULT ---
Consult - text type - Consultation Consultation Note: NEUROLOGY CONSULT GREATLY APPRECIATED: Events reviewed and discussed with Dr. Kidd and Stroke team. Multiple discussions with Dr. Yin Rasheed, ICU residents and FRANKIE Leon. CT of head and CTAngio reviewed. This 87 yo woman from [facility] was admitted due to elevated troponin levels with NSTEMI. Ceasar gautam called on patient this AM due to decreased level of consciousness and oxygen desaturation. Last known normal last evening. EKG performed at time and noted in Sinus Tach with PAC's. Head CT performed (reviewed): Mild to mod diffuse cerebral atrophy. Well demarcated zone of decreased attenuation in L WINDOWS TECH[employer]ICAL [employer]IST involving occiptal lobe suggestive of subcaute infarct. Also with ? ischemic changes R MCA territory involving parietal/temporal lobe with suggestion of secondary hemorrhagic conversion and new right cerebellar lucency. CT Angio: Mid-Basilar stenosis and L WINDOWS TECH[employer]ICAL SPECIALIST occlusion ERLINDA: P100s (Reg). No bruit. Neg Kernig's. ERLINDA: Awake, alert. Speech sparse, moaning initially. Then attempts at speech with mumbling. Cannot follow commands. CNII-CNXII: Initially with fixed R gaze with no blink to threat from R. No obvious facial. No gag. Motor: Rigid tone. Hyperreflexic L > R, but brisk throughout. L sided neglect Babinski equivocal. Coordination: Unable to test. Sensation: Withdraws to legs > arms. Gait: deferred Impression: Mod B/L Cerebral dysfunction with probable underlying OMS but new, clear focality Suggesting Acute L cerebral or brainstem CVA. R/O Cardioembolic Source HOWEVER the multiple sites of ( Bilateral) ischemia are most consistent with Basilar artery stenosis/occlusion Suggest: NPO. Agree with prior Fosphenytoin load 1 gram equivalent IVP x 1 Admit to telemetry floor for Holter monitor, ECHO Repeat CT of head in AM (C-) particularly to view evolution of ischemic changes and especially to R/O hemorrhagic conversion of Right parietal CVA. This would clearly effect Consideration of anticoagulation therapy after cardiac and neuro workup Prognosis of Basilar artery occlusion is grim Thank you very much, Imtiaz Vazquez MD
--- NOTE | 2018-11-26 12:04 | CONSULT ---
Admitting History and Physical - Primary Care Physician PCP: Sidney Rasheed - Admission History of Present Illness: 87 year old woman with a pmh HTN, HLD, DMII, CKD, SLE, hypothyroid, resp failure on O2, recently discharged after cholecystectomy to [facility] rehab sent to ER from [facility] after c/o diffuse body aches, chills, sob requiring 6L O2. A troponin was sent at [facility] and was elevated. pt states she feels cold and has diffuse body aches. . CT Radiologist reading- Hypodensity noted in the left paracentral alicia concerning for the stroke. Acute, early subacute nonhemorrhagic infarct is noted in the right cerebellum. Well demarcated zone of decreased attenuation with loss of interface between the white and sanz matter is noted in the distribution of left posterior cerebral artery involving the left occipital lobe , left cingulate gyrus consistent with recent acute nonhemorrhagic infarct Subacute infarct is noted in the right posterior frontal lobe, right parietal lobe, right temporal lobe in the vascular territories of the branches of the right MCA with hyperdense changes confined to the cortex attributable to reperfusion, some of the changes may be related to petechial hemorrhage. No hyperdense hematoma is noted. White matter edema is noted. Selected Entries 11/24/18 11/24/18 11/25/18 15:00 18:00 01:28 Breakfast 50% Lunch 75% Supper 25% Temperature 97.4 F L 11/25/18 11/25/18 11/25/18 06:00 10:00 11:13 Breakfast 25% Lunch Supper Temperature 97.9 F 98 F 11/25/18 11/25/18 11/25/18 15:23 15:53 18:00 Breakfast Lunch 0 Supper Temperature 97.6 F 97.6 F 11/25/18 11/25/18 11/26/18 19:00 23:00 02:00 Breakfast Lunch Supper 50% Temperature 97.6 F 97.6 F 11/26/18 11/26/18 06:00 08:55 Breakfast Lunch Supper Temperature 97.3 F L 97.6 F Laboratory Tests 11/25/18 11/26/18 06:40 06:33 WBC 5.9 6.2 This is my first consult with this pt. History Source: Family Member, Medical Record Limitations to Obtaining History: Clinical Condition - Past Medical History Cardiovascular: Yes: CHF (pt with dil pacreatic duct was waiting mrcp out pt never got to it), HTN, Other (perivardial cyst) Gastrointestinal: Yes: GERD, Other (ruq pain to deep palp) ...: No Heme/Onc: Yes: Other (h/o lupus) Musculoskeletal: Yes: Bursitis, Chronic low back pain Rheumatology: Yes: Lupus Endocrine: Yes: Diabetes Mellitus, Hypothyroidism - Past Surgical History Past Surgical History: Yes: None Additional Past Surgical History: rectal prolapse sx - Smoking History Smoking history: Unknown if ever smoked (spoke daughter will dicuss dnr dni w family) Have you smoked in the past 12 months: No If you are a former smoker, when did you quit?: 25 years ago - Alcohol/Substance Use Hx Alcohol Use: No History of Substance Use: reports: None - Social History ADL: Independent History of Recent Travel: No History - Admission Reason For Visit: NON ST ELEVATION MYOCARDIAL INFARCTION - Diagnostics CT Scan: Report Reviewed (Head CT performed : Well demarcated zone of decreased attenuation in 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 Also with ? ischemic changes R MCA territory involving parietal/temporal lobe.) - General Mental Status: Awake and Alert, Able to Follow Commands, Vague Attention: Mild Impairment Ability to Follow Directions: Fair Head/Neck Control: Fair Speech Evaluation - Communication Primary Language: KOSOVAN Communication: Yes: Simple Responses Oral Expression Ability: Yes: Moderate Impairment - Speech Production Able to Make Needs Known: Yes: Moderately Impaired Intelligibility: Yes: Moderately Impaired - Speech Characteristics Voice Loudness: Moderately Soft/Quiet Voice Pitch: Yes: Mildly High Voice Phonatory-based Quality: Yes: Dysphonia Speech Pattern: Impaired Speech Clarity: < 50% Articulation: Yes: Imprecise Rate of Speech: Too Fast - Language/Verbal Expression Able to Communicate Wants and Needs: Yes: Moderately Impaired - Swallow Evaluation/Bedside Assessment Current Nutritional Intake: NPO Oral Secretions: Yes: WFL, Dryness Dentition: Yes: Edentulous Facial Symmetry at Rest: Symmetrical Jaw Position: Open at Rest Against Resistance Opening: Weak Against Resistance Closing: Weak Lingual Movement: Symmetric Lingual Movement Strgth Against Opposition: Reduced Laryngeal Movement: Labored,delay initiation Rate of Intake: WFL Bolus Size: Small (Grimaced with applesauce and water, shaking her head. Loud belching) Labial Seal: WFL Chewing: Impaired Oral Prep Time: Increased A-P Transit: Impaired Pocketing: None Timing of Swallow: Delayed Coughing/Throat Clear: No Change in Voice: No Recommendations - Speech Evaluation, Impression/Plan Impression: Grimaced with applesauce and water, shaking her head. Loud belching. Delayed fairly strong swallow. No cough. Limited acceptance. Confused. Denies being in hospital. - Dysphagia Impressions/Plan Dysphagia Impressions: Mild Impairment *Silent aspiration: cannot be R/O at bedside Dysphagia Treatment Plan: Small Bites, Trial Feedings, Safe Rate, 1/2 tsp. at a time, Elevate HOB during feed - Recommendations Diet Consistency: Dysphagia Pureed Medication Administration: Crushed with applesauce Liquids: Bodega Thick Supplement: Magic Cup, Ensure Pudding, Other (2cal HN)
--- NOTE | 2018-11-26 12:04 | EKG ---
Test Reason : Blood Pressure : / mmHG Vent. Rate : 108 BPM Atrial Rate : 108 BPM P-R Int : 142 ms QRS Dur : 090 ms QT Int : 324 ms P-R-T Axes : 051 059 015 degrees QTc Int : 434 ms SINUS TACHYCARDIA WITH PREMATURE ATRIAL COMPLEXES RSR' OR QR PATTERN IN V1 SUGGESTS RIGHT VENTRICULAR CONDUCTION DELAY BORDERLINE ECG WHEN COMPARED WITH ECG OF 24-NOV-2018 12:24, PREMATURE ATRIAL COMPLEXES ARE NOW PRESENT ST NO LONGER DEPRESSED IN ANTERIOR LEADS T WAVE INVERSION NO LONGER EVIDENT IN ANTERIOR LEADS Confirmed by Anish Iverson ([id number]) on 11/26/2018 12:04:28 PM Referred By: Mary MENG Confirmed By:Anish Iverson
[2018-11-26] MEDS ORDERED: SODIUM CHLORIDE 0.45% 1,000 ML IV SCH (12:30)
--- NOTE | 2018-11-26 12:50 | PN ---
Progress Note, Physician History of Present Illness: events noted patient now more awake still uncomfortable abd pain - Current Medication List Current Medications: Active Medications Acetaminophen (Tylenol -) 650 mg PO Q4H PRN PRN Reason: PAIN LEVEL 6-10 Last Admin: 11/26/18 01:28 Dose: 650 mg Glyburide (Diabeta -) 5 mg PO DAILY@0700 [facility] Last Admin: 11/26/18 06:55 Dose: 5 mg Heparin Sodium (Porcine) (Heparin -) 5,000 unit SQ TID [facility] Last Admin: 11/26/18 06:55 Dose: 5,000 unit Sodium Chloride (1/2 Normal Saline) 1,000 mls @ 50 mls/hr IV ASDIR [facility] Stop: 11/26/18 23:00 Levothyroxine Sodium (Synthroid -) 75 mcg PO DAILY@0700 [facility] Last Admin: 11/26/18 06:55 Dose: 75 mcg Ondansetron HCl (Zofran Injection) 4 mg IVPUSH Q8H PRN PRN Reason: NAUSEA AND/OR VOMITING Last Admin: 11/24/18 13:27 Dose: 4 mg Pantoprazole Sodium (Protonix -) 40 mg PO DAILY [facility] Last Admin: 11/25/18 09:20 Dose: 40 mg Prednisone (Deltasone -) 10 mg PO DAILY [facility] Last Admin: 11/25/18 09:20 Dose: 10 mg Tamsulosin HCl (Flomax -) 0.4 mg PO DAILY@0830 [facility] Last Admin: 11/26/18 08:55 Dose: Not Given - Objective Vital Signs: Vital Signs Temperature 97.6 F 11/26/18 08:55 Pulse Rate 115 H 11/26/18 09:00 Respiratory Rate 16 11/26/18 09:00 Blood Pressure 152/112 H 11/26/18 09:00 O2 Sat by Pulse Oximetry (%) 96 11/25/18 23:00 Constitutional: Yes: Moderate Distress, Other (failure to thrive) Cardiovascular: Yes: S1, S2 Respiratory: Yes: Regular, Other (on face mask) Gastrointestinal: Yes: Soft, Hypoactive Bowel Sounds, Tenderness Musculoskeletal: Yes: WNL Extremities: Yes: WNL Neurological: Yes: Alert, Other Psychiatric: Yes: Other Labs: CBC, BMP 11/26/18 06:33 11/26/18 06:33 INR, PTT INR 1.23 (0.83-1.09) H 11/22/18 06:26 Assessment/Plan positive troponin CKD H/O lupus abd pain atrophic right kidney pleural effusions uti lethargy plan close monitoring continue current mgmt neuro on board await for imaging studies results
[2018-11-26] MEDS ORDERED: ONDANSETRON 4 MG/2 ML VIAL IVPUSH PRN (13:58)
[2018-11-26] MEDS ORDERED: ACETAMINOPHEN 1000 MG/100 ML VIAL (NON FORMULARY) IVPB ONE (14:20)
--- NOTE | 2018-11-26 14:43 | PN ---
Progress Note, Physician Chief Complaint: Change in mental status History of Present Illness: This is a 87 year old woman with a pmh HTN, HLD, DMII, CKD, SLE, hypothyroid, resp failure on O2, recently discharged after cholecystectomy to [facility] rehab sent to ER from [facility] after c/o diffuse body aches, chills, sob requiring 6L O2. A troponin was sent at [facility] and was elevated. pt states she feels cold and has diffuse body aches. Denies chest pain. 11/26/18 Events noted. Apparently, the patient had an acute change in mental status and was unresponsive. She was not monitored at that time, but subsequently found to be in stable NSR. Echo pending - Current Medication List Current Medications: Active Medications Acetaminophen (Tylenol -) 650 mg PO Q4H PRN PRN Reason: PAIN LEVEL 6-10 Glyburide (Diabeta -) 5 mg PO DAILY@0700 [facility] Heparin Sodium (Porcine) (Heparin -) 5,000 unit SQ TID [facility] Sodium Chloride (1/2 Normal Saline) 1,000 mls @ 50 mls/hr IV ASDIR [facility] Stop: 11/26/18 23:00 Levothyroxine Sodium (Synthroid -) 75 mcg PO DAILY@0700 [facility] Ondansetron HCl (Zofran Injection) 4 mg IVPUSH Q8H PRN PRN Reason: NAUSEA AND/OR VOMITING Pantoprazole Sodium (Protonix -) 40 mg PO DAILY [facility] Prednisone (Deltasone -) 10 mg PO DAILY [facility] Tamsulosin HCl (Flomax -) 0.4 mg PO DAILY@0830 [facility] - Objective Vital Signs: Vital Signs Temperature 97.6 F 11/26/18 08:55 Pulse Rate 115 H 11/26/18 09:00 Respiratory Rate 16 11/26/18 09:00 Blood Pressure 152/112 H 11/26/18 09:00 O2 Sat by Pulse Oximetry (%) 96 11/25/18 23:00 Constitutional: Yes: No Distress, Thin Eyes: Yes: WNL, Conjunctiva Clear HENT: Yes: WNL, Atraumatic, Normocephalic Neck: Yes: WNL, Supple, Trachea Midline Cardiovascular: Yes: WNL, Regular Rate and Rhythm, Murmur (2/6 SYLWIA), S1, S2 Respiratory: Yes: WNL, Regular, CTA Bilaterally Gastrointestinal: Yes: WNL, Normal Bowel Sounds, Soft Musculoskeletal: Yes: WNL Extremities: Yes: WNL Edema: No Integumentary: Yes: WNL Neurological: Yes: WNL, Alert (Confused), Oriented ...Motor Strength: WNL Psychiatric: Yes: WNL Labs: CBC, BMP 11/26/18 06:33 11/26/18 06:33 INR, PTT INR 1.23 (0.83-1.09) H 11/22/18 06:26 Assessment/Plan 87 year old woman with a pmh HTN, HLD, DMII, CKD, SLE, hypothyroid, resp failure on O2, recently discharged after cholecystectomy to [facility] rehab sent to ER from [facility] after c/o diffuse body aches, chills, sob requiring 6L O2. A troponin was sent at [facility] and was elevated. pt states she feels cold and has diffuse body aches. Denies chest pain. 11/26/18 Events noted. Apparently, the patient had an acute change in mental status and was unresponsive. She was not monitored at that time, but subsequently found to be in stable NSR. Change in mental status Neurology eval appreciated Echo pending Carotid Dopplers planned Block Engraver Consider not using alpha blockers in an 87 year female with a question of syncope
--- NOTE | 2018-11-26 15:02 | ECHO ---
Name: FERNANDEZTAI Exam:Adult Echocardiogram Study Date: 11/26/2018 01:49 PM Age: 87 yrs Reason For Study: cva r/o valve dz MMode/2D Measurements & Calculations IVSd: 1.1 cm Ao root diam: 3.0 cm LVIDd: 3.1 cm LA dimension: 3.0 cm LVIDs: 2.3 cm LVPWd: 1.1 cm LVPWs: 1.1 cm EDV(Teich): 38.1 ml ESV(Teich): 18.7 ml RV S Jon: 6.3 cm/sec Doppler Measurements & Calculations MV E max jon: 49.0 cm/sec Ao V2 max: 177.6 cm/sec MV A max jon: 115.4 cm/sec Ao max P.7 mmHg MV E/A: 0.42 Ao V2 mean: 113.5 cm/sec MV dec time: 0.09 sec Ao mean P.3 mmHg Ao V2 VTI: 32.4 cm AI P1/2t: 583.9 msec AI max jon: 476.1 cm/sec LV V1 max P.4 mmHg AI max P.7 mmHg LV V1 mean P.66 mmHg AI dec slope: 238.8 cm/sec2 LV V1 max: 58.2 cm/sec LV V1 mean: 36.0 cm/sec LV V1 VTI: 10.4 cm PA V2 max: 87.6 cm/sec Lat Peak E' Jon: 3.8 cm/sec PA max P.1 mmHg Lat E/e': 12.9 Left Ventricle The left ventricular size, thickness and function are normal. Right Ventricle The right ventricle is normal in size and function. Atria Normal left and right atrial size and function. Mitral Valve Thickened MV with normal function. Tricuspid Valve The tricuspid valve is normal. There is mild tricuspid regurgitation. Aortic Valve Fibrocalcific changes to the AV without . Pulmonic Valve The pulmonic valve is not well seen, but is grossly normal. Great Vessels The aortic root is normal size. Pericardium/Pleura There is no pericardial effusion. Interpretation Summary The left ventricular size, thickness and function are normal The right ventricle is normal in size and function. Normal left and right atrial size and function. Thickened MV with normal function The tricuspid valve is normal. There is mild tricuspid regurgitation. Fibrocalcific changes to the AV without The pulmonic valve is not well seen, but is grossly normal. The aortic root is normal size. There is no pericardial effusion. EF 51 - 56% PASP 32 mmHg MD Daniel Anne 11/26/2018 03:02 PM
--- NOTE | 2018-11-26 15:14 | PN ---
Progress Note, Physician History of Present Illness: Pt seen and examined at bedside. She is awake and alert. She complains of generalized aches and pains. - Current Medication List Current Medications: Active Medications Acetaminophen (Tylenol -) 650 mg PO Q4H PRN PRN Reason: PAIN LEVEL 6-10 Glyburide (Diabeta -) 5 mg PO DAILY@0700 [facility] Heparin Sodium (Porcine) (Heparin -) 5,000 unit SQ TID [facility] Last Admin: 11/26/18 14:52 Dose: 5,000 unit Sodium Chloride (1/2 Normal Saline) 1,000 mls @ 50 mls/hr IV ASDIR ERNIE Stop: 11/26/18 23:00 Last Admin: 11/26/18 14:52 Dose: 50 mls/hr Levothyroxine Sodium (Synthroid -) 75 mcg PO DAILY@0700 [facility] Ondansetron HCl (Zofran Injection) 4 mg IVPUSH Q8H PRN PRN Reason: NAUSEA AND/OR VOMITING Pantoprazole Sodium (Protonix -) 40 mg PO DAILY [facility] Prednisone (Deltasone -) 10 mg PO DAILY [facility] Tamsulosin HCl (Flomax -) 0.4 mg PO DAILY@0830 [facility] - Objective Vital Signs: Vital Signs Temperature 97.6 F 11/26/18 08:55 Pulse Rate 115 H 11/26/18 09:00 Respiratory Rate 16 11/26/18 09:00 Blood Pressure 152/112 H 11/26/18 09:00 O2 Sat by Pulse Oximetry (%) 96 11/25/18 23:00 Constitutional: Yes: Mild Distress Eyes: Yes: Conjunctiva Clear Cardiovascular: Yes: S1, S2 Respiratory: Yes: On Nasal O2 Gastrointestinal: Yes: Soft Genitourinary: Yes: Incontinence Musculoskeletal: Yes: Muscle Weakness Edema: No Neurological: Yes: Oriented Psychiatric: Yes: Oriented Labs: CBC, BMP 11/26/18 06:33 11/26/18 06:33 INR, PTT INR 1.23 (0.83-1.09) H 11/22/18 06:26 Problem List - Problems (1) Renal insufficiency Code(s): N28.9 - DISORDER OF KIDNEY AND URETER, UNSPECIFIED Assessment/Plan Current Medications Generic Name Dose Route Start Last Admin Trade Name Freq PRN Reason Stop Dose Admin Acetaminophen 650 mg 11/26/18 13:58 Tylenol - PO Q4H PRN PAIN LEVEL 6-10 Glyburide 5 mg 11/27/18 07:00 Diabeta - PO DAILY@0700 [facility] Heparin Sodium (Porcine) 5,000 unit 11/26/18 14:00 11/26/18 14:52 Heparin - SQ 5,000 unit TID [facility] Administration Sodium Chloride 1,000 mls @ 50 mls/hr 11/26/18 12:30 11/26/18 14:52 1/2 Normal Saline IV 11/26/18 23:00 50 mls/hr ASDIR [facility] Administration Levothyroxine Sodium 75 mcg 11/27/18 07:00 Synthroid - PO DAILY@0700 [facility] Ondansetron HCl 4 mg 11/26/18 13:58 Zofran Injection IVPUSH Q8H PRN NAUSEA AND/OR VOMITING Pantoprazole Sodium 40 mg 11/27/18 10:00 Protonix - PO DAILY [facility] Prednisone 10 mg 11/27/18 10:00 Deltasone - PO DAILY [facility] Tamsulosin HCl 0.4 mg 11/27/18 08:30 Flomax - PO DAILY@0830 [facility] Impression positive troponin CKD H/O lupus proteinuria atrophic right kidney pleural effusions Plan - cont to monitor renal function - can hold lasix for now - pt with poor PO intake - hold off fluids - avoid nsaids if possible
--- NOTE | 2018-11-26 16:00 | EKG ---
Test Reason : Blood Pressure : / mmHG Vent. Rate : 073 BPM Atrial Rate : 073 BPM P-R Int : 152 ms QRS Dur : 086 ms QT Int : 404 ms P-R-T Axes : 036 120 000 degrees QTc Int : 445 ms NORMAL SINUS RHYTHM RIGHT AXIS DEVIATION RIGHT VENTRICULAR HYPERTROPHY ABNORMAL ECG WHEN COMPARED WITH ECG OF 26-NOV-2018 09:59, PREMATURE ATRIAL COMPLEXES ARE NO LONGER PRESENT QRS AXIS SHIFTED RIGHT Confirmed by MD Omid, ([id number]) on 11/26/2018 3:59:41 PM Referred By: Confirmed By:Daniel Anne MD
[2018-11-26 16:56] VITALS: BMI 23.8
[2018-11-26 17:55] LABS: EPI CELLS 0.6 /HPF (0-5/HPF); HYALINE CASTS 1 /lpf (0-8); URINE APPEARANCE CLEAR; URINE BILIRUBIN NEGATIVE (NEGATIVE); URINE COLOR YELLOW; URINE GLUCOSE (UA) NEGATIVE (NEGATIVE); URINE KETONE NEGATIVE (NEGATIVE); URINE LEUK ESTERASE NEGATIVE (NEGATIVE); URINE NITRITE NEGATIVE (NEGATIVE); URINE PROTEIN 3+ (NEGATIVE); URINE RBC 1 /hpf (0-4); URINE UROBILINOGEN 0.2 mg/dL (0.2-1.0); URINE WBC 0 /hpf (0-5)
[2018-11-26] MEDS: DEXTROSE 5%-0.45% SALINE 1,000 ML IV SCH (18:11)
[2018-11-26 19:39] LABS: BASO % 0.6 % (0-2.0); EOS % 0.7 % (0-4.5); HEMATOCRIT 36.8 % (32.4-45.2); HEMOGLOBIN 11.9 GM/dL (10.7-15.3); LYMPH % 14.2 % (8-40); MCH 27.6 pg (25.7-33.7); MCHC 32.2 g/dl (32.0-36.0); MEAN CELL VOLUME 85.5 fl (80-96); MEAN PLT VOLUME 8.3 fl (7.5-11.1); MONO % 7.4 % (3.8-10.2); NEUT % 77.1 % (42.8-82.8); PLATELET COUNT 473 K/MM3 (134-434); RBC 4.31 M/mm3 (3.60-5.2); RDW 16.7 % (11.6-15.6); WHITE BLOOD COUNT 7.3 K/mm3 (4.0-10.0)
[2018-11-26 19:57] LABS: INR 1.01 (0.83-1.09); PROTHROMBIN TIME (PATIENT) 11.9 SEC (9.7-13.0)
[2018-11-26 19:58] LABS: BILIRUBIN,TOTAL 0.4 mg/dL (0.2-1); BLOOD UREA NITROGEN 47.6 mg/dL (7-18); CREATININE 1.4 mg/dL (0.55-1.3); POTASSIUM 4.4 mmol/L (3.5-5.1); TOT PROT 6.8 g/dl (6.4-8.2)
[2018-11-26 20:00] LABS: ACTIVATED PTT 30.8 SECONDS (25.2-36.5)
[2018-11-27] MEDS: ACETAMINOPHEN 325 MG TABLET (FP) PO PRN (02:29)
[2018-11-27] MEDS: DEXTROSE 5%-0.45% SALINE 1,000 ML IV SCH ×2 (06:30→13:19)
[2018-11-27] MEDS: LEVOTHYROXINE NA 75 MCG TABLET (FP) PO SCH (06:32)
[2018-11-27] MEDS: HEPARIN NA (PORCINE) 5,000 UNITS/ML 1ML VIAL SQ SCH ×3 (06:33→22:30)
[2018-11-27] MEDS ORDERED: glyBURIDE 5 MG TABLET (UD) PO SCH (07:00)
[2018-11-27 07:01] LABS: BASO % 0.9 % (0-2.0); EOS % 1.3 % (0-4.5); HEMATOCRIT 33.9 % (32.4-45.2); HEMOGLOBIN 11.2 GM/dL (10.7-15.3); LYMPH % 12.6 % (8-40); MCH 28.1 pg (25.7-33.7); MCHC 33.1 g/dl (32.0-36.0); MEAN CELL VOLUME 84.8 fl (80-96); MEAN PLT VOLUME 8.5 fl (7.5-11.1); MONO % 7.9 % (3.8-10.2); NEUT % 77.3 % (42.8-82.8); PLATELET COUNT 483 K/MM3 (134-434); RDW 16.2 % (11.6-15.6); WHITE BLOOD COUNT 6.8 K/mm3 (4.0-10.0)
[2018-11-27 07:32] LABS: ALBUMIN 2.7 g/dl (3.4-5.0); BILIRUBIN,TOTAL 0.3 mg/dL (0.2-1); BLOOD UREA NITROGEN 41.4 mg/dL (7-18); CALCIUM 8.8 mg/dL (8.5-10.1); CREATININE 1.3 mg/dL (0.55-1.3); POTASSIUM 4.1 mmol/L (3.5-5.1); TOT PROT 6.3 g/dl (6.4-8.2)
[2018-11-27] MEDS ORDERED: TAMSULOSIN HCL 0.4 MG CAP PO SCH (08:30)
[2018-11-27] MEDS: ASPIRIN 81 MG CHEWABLE TABLETS PO SCH (10:04)
[2018-11-27] MEDS: predniSONE 10 MG TABLET (UD) PO SCH (10:04)
[2018-11-27] MEDS: PANTOPRAZOLE 40 MG TABLET (FP) PO SCH (10:04)
--- NOTE | 2018-11-27 11:58 | PN ---
Progress Note, Physician History of Present Illness: Pt seen and examined at bedside. She is awake and alert. She denies shortness of breath. She feels more comfortable today. - Current Medication List Current Medications: Active Medications Acetaminophen (Tylenol -) 650 mg PO Q4H PRN PRN Reason: PAIN LEVEL 6-10 Last Admin: 11/27/18 02:29 Dose: 650 mg Aspirin (Asa -) 81 mg PO DAILY [facility] Last Admin: 11/27/18 10:04 Dose: 81 mg Heparin Sodium (Porcine) (Heparin -) 5,000 unit SQ TID [facility] Last Admin: 11/27/18 06:33 Dose: 5,000 unit Dextrose/Sodium Chloride (D5-1/2ns -) 1,000 mls @ 50 mls/hr IV ASDIR [facility] Last Admin: 11/27/18 06:30 Dose: 50 mls/hr Insulin Aspart (Novolog Vial Sliding Scale -) 1 vial SQ ACHS [facility]; Protocol Levothyroxine Sodium (Synthroid -) 75 mcg PO DAILY@0700 [facility] Last Admin: 11/27/18 06:32 Dose: 75 mcg Ondansetron HCl (Zofran Injection) 4 mg IVPUSH Q8H PRN PRN Reason: NAUSEA AND/OR VOMITING Pantoprazole Sodium (Protonix -) 40 mg PO DAILY [facility] Last Admin: 11/27/18 10:04 Dose: 40 mg Prednisone (Deltasone -) 10 mg PO DAILY [facility] Last Admin: 11/27/18 10:04 Dose: 10 mg Tamsulosin HCl (Flomax -) 0.4 mg PO DAILY@0830 [facility] Last Admin: 11/27/18 09:40 Dose: 0.4 mg - Objective Vital Signs: Vital Signs Temperature 97.5 F L 11/27/18 10:00 Pulse Rate 87 11/27/18 10:00 Respiratory Rate 20 11/27/18 10:00 Blood Pressure 154/71 11/27/18 10:00 O2 Sat by Pulse Oximetry (%) 99 11/26/18 20:41 Constitutional: Yes: Calm Eyes: Yes: Conjunctiva Clear HENT: Yes: Atraumatic Neck: Yes: Supple Cardiovascular: Yes: S1, S2 Respiratory: Yes: CTA Bilaterally Gastrointestinal: Yes: Soft Genitourinary: Yes: Incontinence Musculoskeletal: Yes: Muscle Weakness Edema: No Neurological: Yes: Oriented Psychiatric: Yes: Oriented Labs: CBC, BMP 11/27/18 05:30 11/27/18 05:30 INR, PTT INR 1.01 (0.83-1.09) 11/26/18 19:00 Problem List - Problems (1) Renal insufficiency Code(s): N28.9 - DISORDER OF KIDNEY AND URETER, UNSPECIFIED Assessment/Plan Current Medications Generic Name Dose Route Start Last Admin Trade Name Freq PRN Reason Stop Dose Admin Acetaminophen 650 mg 11/26/18 13:58 11/27/18 02:29 Tylenol - PO 650 mg Q4H PRN Administration PAIN LEVEL 6-10 Aspirin 81 mg 11/27/18 10:00 11/27/18 10:04 Asa - PO 81 mg DAILY ER[facility] Administration Heparin Sodium (Porcine) 5,000 unit 11/26/18 14:00 11/27/18 06:33 Heparin - SQ 5,000 unit TID [facility] Administration Dextrose/Sodium Chloride 1,000 mls @ 50 mls/hr 11/26/18 18:15 11/27/18 06:30 D5-1/2ns - IV 50 mls/hr ASDIR [facility] Administration Insulin Aspart 1 vial 11/27/18 16:30 Novolog Vial Sliding Scale - SQ ACHS [facility] Protocol Levothyroxine Sodium 75 mcg 11/27/18 07:00 11/27/18 06:32 Synthroid - PO 75 mcg DAILY@0700 [facility] Administration Ondansetron HCl 4 mg 11/26/18 13:58 Zofran Injection IVPUSH Q8H PRN NAUSEA AND/OR VOMITING Pantoprazole Sodium 40 mg 11/27/18 10:00 11/27/18 10:04 Protonix - PO 40 mg DAILY [facility] Administration Prednisone 10 mg 11/27/18 10:00 11/27/18 10:04 Deltasone - PO 10 mg DAILY [facility] Administration Tamsulosin HCl 0.4 mg 11/27/18 08:30 11/27/18 09:40 Flomax - PO 0.4 mg DAILY@0830 [facility] Administration Impression positive troponin CKD H/O lupus proteinuria atrophic right kidney pleural effusions Plan - renal function stable - poor PO intake - decrease rate of fluids - monitor renal function - avoid nsaids if possible
--- NOTE | 2018-11-27 13:04 | PN ---
Progress Note, Physician History of Present Illness: stable no new issues - Current Medication List Current Medications: Active Medications Acetaminophen (Tylenol -) 650 mg PO Q4H PRN PRN Reason: PAIN LEVEL 6-10 Last Admin: 11/27/18 02:29 Dose: 650 mg Aspirin (Asa -) 81 mg PO DAILY [facility] Last Admin: 11/27/18 10:04 Dose: 81 mg Heparin Sodium (Porcine) (Heparin -) 5,000 unit SQ TID [facility] Last Admin: 11/27/18 06:33 Dose: 5,000 unit Dextrose/Sodium Chloride (D5-1/2ns -) 1,000 mls @ 40 mls/hr IV ASDIR [facility] Insulin Aspart (Novolog Vial Sliding Scale -) 1 vial SQ ACHS [facility]; Protocol Levothyroxine Sodium (Synthroid -) 75 mcg PO DAILY@0700 [facility] Last Admin: 11/27/18 06:32 Dose: 75 mcg Ondansetron HCl (Zofran Injection) 4 mg IVPUSH Q8H PRN PRN Reason: NAUSEA AND/OR VOMITING Pantoprazole Sodium (Protonix -) 40 mg PO DAILY [facility] Last Admin: 11/27/18 10:04 Dose: 40 mg Prednisone (Deltasone -) 10 mg PO DAILY [facility] Last Admin: 11/27/18 10:04 Dose: 10 mg Tamsulosin HCl (Flomax -) 0.4 mg PO DAILY@0830 [facility] Last Admin: 11/27/18 09:40 Dose: 0.4 mg - Objective Vital Signs: Vital Signs Temperature 97.5 F L 11/27/18 10:00 Pulse Rate 87 11/27/18 10:00 Respiratory Rate 20 11/27/18 10:00 Blood Pressure 154/71 11/27/18 10:00 O2 Sat by Pulse Oximetry (%) 99 11/26/18 20:41 Constitutional: Yes: No Distress, Calm Cardiovascular: Yes: S1, S2 Respiratory: Yes: Regular, CTA Bilaterally Gastrointestinal: Yes: Normal Bowel Sounds, Soft Musculoskeletal: Yes: WNL Extremities: Yes: WNL Neurological: Yes: Alert, Oriented Psychiatric: Yes: Alert, Oriented Labs: CBC, BMP 11/27/18 05:30 11/27/18 05:30 INR, PTT INR 1.01 (0.83-1.09) 11/26/18 19:00 Assessment/Plan positive troponin CKD H/O lupus abd pain atrophic right kidney pleural effusions uti lethargy plan close monitoring continue current mgmt neuro on board await for imaging studies results
--- NOTE | 2018-11-27 14:13 | PN ---
Teaching Attending Note Name of Resident: Funmi Chacon ATTENDING PHYSICIAN STATEMENT I saw and evaluated the patient. I reviewed the resident's note and discussed the case with the resident. I agree with the resident's findings and plan as documented. SUBJECTIVE: Seen and examined at bedside. Feeling much better today, eating, no abdominal pain. OBJECTIVE: Vital Signs - 24 hr 11/26/18 11/26/18 11/26/18 16:31 20:41 21:59 Temperature 97.4 F L 97.5 F L Pulse Rate 63 76 Respiratory 17 20 Rate Blood Pressure 125/59 L 167/88 O2 Sat by Pulse 99 Oximetry (%) 11/27/18 11/27/18 11/27/18 02:26 06:00 09:00 Temperature 97.5 F L 96.2 F L Pulse Rate 76 79 Respiratory 20 20 Rate Blood Pressure 152/64 172/83 H O2 Sat by Pulse 98 Oximetry (%) 11/27/18 10:00 Temperature 97.5 F L Pulse Rate 87 Respiratory 20 Rate Blood Pressure 154/71 O2 Sat by Pulse Oximetry (%) Physical Exam: Constitutional: Yes: No Distress Eyes: Yes: WNL, Conjunctiva Clear HENT: Yes: WNL, Atraumatic, Normocephalic Neck: Yes: WNL, Supple, Trachea Midline Cardiovascular: Yes: WNL, Regular Rate and Rhythm, +SYLWIA, S1, S2 Respiratory: Yes: WNL, Regular, CTA Bilaterally Gastrointestinal: Yes: WNL, Normal Bowel Sounds, Soft Musculoskeletal: Yes: WNL Extremities: Yes: WNL Edema: No Neurological: Yes: WNL, Alert, Oriented x1 Laboratory Results - last 24 hr 11/26/18 11/26/18 11/26/18 16:59 17:00 19:00 WBC 7.3 RBC 4.31 Hgb 11.9 Hct 36.8 MCV 85.5 MCH 27.6 MCHC 32.2 RDW 16.7 H Plt Count 473 H MPV 8.3 Absolute Neuts (auto) 5.6 Neutrophils % 77.1 Lymphocytes % 14.2 Monocytes % 7.4 Eosinophils % 0.7 Basophils % 0.6 Nucleated RBC % 0 PT with INR INR PTT (Actin FS) Sodium Potassium Chloride Carbon Dioxide Anion Gap BUN Creatinine Est GFR (CKD-EPI)AfAm Est GFR (CKD-EPI)NonAf POC Glucometer 155 Random Glucose Lactic Acid Calcium Total Bilirubin AST ALT Alkaline Phosphatase Creatine Kinase Troponin I Total Protein Albumin Total Amylase Lipase Urine Color Yellow Urine Appearance Clear Urine pH 5.0 Ur Specific [place] 1.023 Urine Protein 3+ H Urine Glucose (UA) Negative Urine Ketones Negative Urine Blood Negative Urine Nitrite Negative Urine Bilirubin Negative Urine Urobilinogen 0.2 Ur Leukocyte Esterase Negative Urine WBC (Auto) 0 Urine RBC (Auto) 1 Urine Casts (Auto) 1 U Epithel Cells (Auto) 0.6 Urine Bacteria (Auto) 6.0 11/26/18 11/26/18 11/26/18 19:00 19:00 19:00 WBC RBC Hgb Hct MCV MCH MCHC RDW Plt Count MPV Absolute Neuts (auto) Neutrophils % Lymphocytes % Monocytes % Eosinophils % Basophils % Nucleated RBC % PT with INR 11.90 INR 1.01 PTT (Actin FS) 30.8 Sodium 139 Potassium 4.4 Chloride 106 Carbon Dioxide 25 Anion Gap 8 BUN 47.6 H Creatinine 1.4 H Est GFR (CKD-EPI)AfAm 39.33 Est GFR (CKD-EPI)NonAf 33.94 POC Glucometer Random Glucose 140 H Lactic Acid 1.1 Calcium 9.0 Total Bilirubin 0.4 AST 20 ALT 21 Alkaline Phosphatase 109 Creatine Kinase Troponin I Total Protein 6.8 Albumin 3.0 L Total Amylase 64 Lipase 345 Urine Color Urine Appearance Urine pH Ur Specific [place] Urine Protein Urine Glucose (UA) Urine Ketones Urine Blood Urine Nitrite Urine Bilirubin Urine Urobilinogen Ur Leukocyte Esterase Urine WBC (Auto) Urine RBC (Auto) Urine Casts (Auto) U Epithel Cells (Auto) Urine Bacteria (Auto) 11/26/18 11/27/18 11/27/18 19:00 05:17 05:30 WBC 6.8 RBC 4.00 Hgb 11.2 Hct 33.9 MCV 84.8 MCH 28.1 MCHC 33.1 RDW 16.2 H Plt Count 483 H MPV 8.5 Absolute Neuts (auto) 5.3 Neutrophils % 77.3 Lymphocytes % 12.6 Monocytes % 7.9 Eosinophils % 1.3 D Basophils % 0.9 Nucleated RBC % 0 PT with INR INR PTT (Actin FS) Sodium Potassium Chloride Carbon Dioxide Anion Gap BUN Creatinine Est GFR (CKD-EPI)AfAm Est GFR (CKD-EPI)NonAf POC Glucometer 196 Random Glucose Lactic Acid Calcium Total Bilirubin AST ALT Alkaline Phosphatase Creatine Kinase Troponin I 0.13 H Total Protein Albumin Total Amylase Lipase Urine Color Urine Appearance Urine pH Ur Specific [place] Urine Protein Urine Glucose (UA) Urine Ketones Urine Blood Urine Nitrite Urine Bilirubin Urine Urobilinogen Ur Leukocyte Esterase Urine WBC (Auto) Urine RBC (Auto) Urine Casts (Auto) U Epithel Cells (Auto) Urine Bacteria (Auto) 11/27/18 11/27/18 05:30 13:57 WBC RBC Hgb Hct MCV MCH MCHC RDW Plt Count MPV Absolute Neuts (auto) Neutrophils % Lymphocytes % Monocytes % Eosinophils % Basophils % Nucleated RBC % PT with INR INR PTT (Actin FS) Sodium 139 Potassium 4.1 Chloride 106 Carbon Dioxide 24 Anion Gap 9 BUN 41.4 H Creatinine 1.3 Est GFR (CKD-EPI)AfAm 43.02 Est GFR (CKD-EPI)NonAf 37.12 POC Glucometer 303 Random Glucose 187 H Lactic Acid Calcium 8.8 Total Bilirubin 0.3 AST 21 ALT 19 Alkaline Phosphatase 99 Creatine Kinase 31 Troponin I 0.10 H Total Protein 6.3 L Albumin 2.7 L Total Amylase Lipase Urine Color Urine Appearance Urine pH Ur Specific [place] Urine Protein Urine Glucose (UA) Urine Ketones Urine Blood Urine Nitrite Urine Bilirubin Urine Urobilinogen Ur Leukocyte Esterase Urine WBC (Auto) Urine RBC (Auto) Urine Casts (Auto) U Epithel Cells (Auto) Urine Bacteria (Auto) Home Medication List Medication Instructions Recorded Confirmed Type Furosemide [Lasix -] 20 mg PO ASDIR 11/05/18 11/21/18 History Acetaminophen 650 mg PO Q6H PRN 11/21/18 11/21/18 History Gabapentin 200 mg PO HS 11/21/18 11/21/18 History Gabapentin [Neurontin -] 100 mg PO BID 11/21/18 11/21/18 History Levothyroxine [Synthroid -] 75 mcg PO DAILY@0700 11/21/18 11/21/18 History Lidocaine 5% Patch [Lidoderm Patch 1 patch TP DAILY 11/21/18 11/21/18 History -] Pantoprazole Sodium [Protonix] 40 mg PO DAILY 11/21/18 11/21/18 History Polyethylene Glycol 3350 17 gm PO DAILY 11/21/18 11/21/18 History Tamsulosin HCl 0.4 mg PO DAILY 11/21/18 11/21/18 History traMADol HCL [Ultram -] 50 mg PO Q12H 11/21/18 11/21/18 History Active Medications Generic Name Dose Route Start Last Admin Trade Name Flory PRN Reason Stop Dose Admin Acetaminophen 650 mg 11/26/18 13:58 11/27/18 02:29 Tylenol - PO 650 mg Q4H PRN Administration PAIN LEVEL 6-10 Aspirin 81 mg 11/27/18 10:00 11/27/18 10:04 Asa - PO 81 mg DAILY [facility] Administration Heparin Sodium (Porcine) 5,000 unit 11/26/18 14:00 11/27/18 13:20 Heparin - SQ 5,000 unit TID [facility] Administration Dextrose/Sodium Chloride 1,000 mls @ 40 mls/hr 11/27/18 11:58 11/27/18 13:19 D5-1/2ns - IV 40 mls/hr ASDIR ERNIE Administration Insulin Aspart 1 vial 11/27/18 16:30 Novolog Vial Sliding Scale - SQ ACHS [facility] Protocol Levothyroxine Sodium 75 mcg 11/27/18 07:00 11/27/18 06:32 Synthroid - PO 75 mcg DAILY@0700 [facility] Administration Ondansetron HCl 4 mg 11/26/18 13:58 11/27/18 13:19 Zofran Injection IVPUSH 4 mg Q8H PRN Administration NAUSEA AND/OR VOMITING Pantoprazole Sodium 40 mg 11/27/18 10:00 11/27/18 10:04 Protonix - PO 40 mg DAILY [facility] Administration Prednisone 10 mg 11/27/18 10:00 11/27/18 10:04 Deltasone - PO 10 mg DAILY ERN[facility] Administration IMAGING REPORTS reviewed ASSESSMENT: Acute Ischemic CVA NSTEMI JACIEL on CKD Hypothyroidism VRE in urine Lupus PLAN: -repeat CT without hemorrhagic conversion -allow permissive HTN -c/w asa, should be on statin, discuss AC with neuro -echo and carotids pending -cw current regimen -renal function stable, IVF decreased -continue to monitor on tele -neuro and cardio eval appreciated -VRE only 50-60 K, hold off on abx, ID eval appreciated -need to establish goals of care
--- NOTE | 2018-11-27 16:30 | PN ---
Progress Note, Physician History of Present Illness: seen and examined today in [facility]. no overnight events. - Current Medication List Current Medications: Active Medications Acetaminophen (Tylenol -) 650 mg PO Q4H PRN PRN Reason: PAIN LEVEL 6-10 Last Admin: 11/27/18 02:29 Dose: 650 mg Aspirin (Asa -) 81 mg PO DAILY [facility] Last Admin: 11/27/18 10:04 Dose: 81 mg Heparin Sodium (Porcine) (Heparin -) 5,000 unit SQ TID [facility] Last Admin: 11/27/18 13:20 Dose: 5,000 unit Dextrose/Sodium Chloride (D5-1/2ns -) 1,000 mls @ 40 mls/hr IV ASDIR [facility] Last Admin: 11/27/18 13:19 Dose: 40 mls/hr Insulin Aspart (Novolog Vial Sliding Scale -) 1 vial SQ ACHS [facility]; Protocol Levothyroxine Sodium (Synthroid -) 75 mcg PO DAILY@0700 [facility] Last Admin: 11/27/18 06:32 Dose: 75 mcg Ondansetron HCl (Zofran Injection) 4 mg IVPUSH Q8H PRN PRN Reason: NAUSEA AND/OR VOMITING Last Admin: 11/27/18 13:19 Dose: 4 mg Pantoprazole Sodium (Protonix -) 40 mg PO DAILY [facility] Last Admin: 11/27/18 10:04 Dose: 40 mg Prednisone (Deltasone -) 10 mg PO DAILY [facility] Last Admin: 11/27/18 10:04 Dose: 10 mg - Objective Vital Signs: Vital Signs Temperature 98.3 F 11/27/18 15:00 Pulse Rate 91 H 11/27/18 15:00 Respiratory Rate 18 11/27/18 15:00 Blood Pressure 136/86 11/27/18 15:00 O2 Sat by Pulse Oximetry (%) 98 11/27/18 09:00 Constitutional: Yes: No Distress, Calm Eyes: Yes: Conjunctiva Clear, EOM Intact, PERRL HENT: Yes: Atraumatic, Normocephalic Neck: Yes: Supple, Trachea Midline Cardiovascular: Yes: Regular Rate and Rhythm, S1, S2. No: Bradycardia, Tachycardia, Pulse Irregular, Bruit, JVD, Gallop, Murmur, Rub, S3, S4, Varicosities Respiratory: Yes: Regular, CTA Bilaterally. No: Rales, Rhonchi, Wheezes Gastrointestinal: Yes: Normal Bowel Sounds, Soft. No: Distention, Tenderness Musculoskeletal: Yes: WNL Extremities: Yes: WNL Edema: No Peripheral Pulses WNL: Yes Neurological: Yes: Alert Psychiatric: Yes: Alert Labs: CBC, BMP 11/27/18 05:30 11/27/18 05:30 INR, PTT INR 1.01 (0.83-1.09) 11/26/18 19:00 - ....Imaging Chest X-ray: Report Reviewed, Image Reviewed EKG: Report Reviewed, Image Reviewed Other: Report Reviewed, Image Reviewed (tele-nsr, no sig arrhythmias) Assessment/Plan 87 year old woman with a pmh HTN, HLD, DMII, CKD, SLE, hypothyroid, resp failure on O2, recently discharged after cholecystectomy to [facility] rehab sent to ER from [facility] after c/o diffuse body aches, chills, sob requiring 6L O2. A troponin was sent at [facility] and was elevated. pt states she feels cold and has diffuse body aches. Denies chest pain. 11/26/18 Events noted. Apparently, the patient had an acute change in mental status and was unresponsive. She was not monitored at that time, but subsequently found to be in stable NSR. Change in mental status 11/26/18 Neurology eval appreciated Echo repeated 11/26/18 again showed normal LV and RV systolic function, mild valvular abnl Cardiac enzymes did not trend up, CK wnl and trop trending down since admission , no need to continue monitoring cardiac enzymes No sig events on tele alpha kris was stopped No other cardiac work up is needed at this time. will see as needed. Please call with any additional questions.
--- NOTE | 2018-11-27 17:24 | PN ---
Physical Exam: SUBJECTIVE: Patient seen and examined. NAEON. Had code gautam yesterday. Endorses mild mid-epigastric pain. Has appetite. Denies NV OBJECTIVE: Vital Signs Period Temp Pulse Resp BP Sys/Lovell Pulse Ox Last 24 Hr 96.2 F-98.3 F 76-91 18-20 136-172/64-88 98-99 GENERAL: The patient is awake, alert, Oriented to self. In no acute distress. HEAD: Normal with no signs of trauma. Severe temporal wasting EYES: extraocular movements intact, sclera anicteric, conjunctiva clear. ENT: Ears normal, nares patent, oropharynx clear without exudates, moist mucous membranes. NECK: Trachea midline, full range of motion, supple. LUNGS: Breath sounds equal, clear to auscultation bilaterally, no wheezes, no crackles, no accessory muscle use. HEART: Regular rate and rhythm, S1, S2 without murmur, rub or gallop. ABDOMEN: Soft, nondistended, normoactive bowel sounds, no guarding, no rebound. Mildly tender to deep palpation of epigastrium EXTREMITIES: 2+ pulses, warm, well-perfused, no edema. NEUROLOGICAL: Cranial nerves II through XII grossly intact. Gait not observed. Speaking in short sentences. NIHSS 8 PSYCH: Normal mood, normal affect. SKIN: Warm, dry, normal turgor, no rashes or lesions noted Laboratory Results - last 24 hr 11/26/18 11/26/18 11/26/18 16:59 17:00 19:00 WBC 7.3 RBC 4.31 Hgb 11.9 Hct 36.8 MCV 85.5 MCH 27.6 MCHC 32.2 RDW 16.7 H Plt Count 473 H MPV 8.3 Absolute Neuts (auto) 5.6 Neutrophils % 77.1 Lymphocytes % 14.2 Monocytes % 7.4 Eosinophils % 0.7 Basophils % 0.6 Nucleated RBC % 0 PT with INR INR PTT (Actin FS) Sodium Potassium Chloride Carbon Dioxide Anion Gap BUN Creatinine Est GFR (CKD-EPI)AfAm Est GFR (CKD-EPI)NonAf POC Glucometer 155 Random Glucose Lactic Acid Calcium Total Bilirubin AST ALT Alkaline Phosphatase Creatine Kinase Troponin I Total Protein Albumin Total Amylase Lipase Urine Color Yellow Urine Appearance Clear Urine pH 5.0 Ur Specific [place] 1.023 Urine Protein 3+ H Urine Glucose (UA) Negative Urine Ketones Negative Urine Blood Negative Urine Nitrite Negative Urine Bilirubin Negative Urine Urobilinogen 0.2 Ur Leukocyte Esterase Negative Urine WBC (Auto) 0 Urine RBC (Auto) 1 Urine Casts (Auto) 1 U Epithel Cells (Auto) 0.6 Urine Bacteria (Auto) 6.0 11/26/18 11/26/18 11/26/18 19:00 19:00 19:00 WBC RBC Hgb Hct MCV MCH MCHC RDW Plt Count MPV Absolute Neuts (auto) Neutrophils % Lymphocytes % Monocytes % Eosinophils % Basophils % Nucleated RBC % PT with INR 11.90 INR 1.01 PTT (Actin FS) 30.8 Sodium 139 Potassium 4.4 Chloride 106 Carbon Dioxide 25 Anion Gap 8 BUN 47.6 H Creatinine 1.4 H Est GFR (CKD-EPI)AfAm 39.33 Est GFR (CKD-EPI)NonAf 33.94 POC Glucometer Random Glucose 140 H Lactic Acid 1.1 Calcium 9.0 Total Bilirubin 0.4 AST 20 ALT 21 Alkaline Phosphatase 109 Creatine Kinase Troponin I Total Protein 6.8 Albumin 3.0 L Total Amylase 64 Lipase 345 Urine Color Urine Appearance Urine pH Ur Specific [place] Urine Protein Urine Glucose (UA) Urine Ketones Urine Blood Urine Nitrite Urine Bilirubin Urine Urobilinogen Ur Leukocyte Esterase Urine WBC (Auto) Urine RBC (Auto) Urine Casts (Auto) U Epithel Cells (Auto) Urine Bacteria (Auto) 11/26/18 11/27/18 11/27/18 19:00 05:17 05:30 WBC 6.8 RBC 4.00 Hgb 11.2 Hct 33.9 MCV 84.8 MCH 28.1 MCHC 33.1 RDW 16.2 H Plt Count 483 H MPV 8.5 Absolute Neuts (auto) 5.3 Neutrophils % 77.3 Lymphocytes % 12.6 Monocytes % 7.9 Eosinophils % 1.3 D Basophils % 0.9 Nucleated RBC % 0 PT with INR INR PTT (Actin FS) Sodium Potassium Chloride Carbon Dioxide Anion Gap BUN Creatinine Est GFR (CKD-EPI)AfAm Est GFR (CKD-EPI)NonAf POC Glucometer 196 Random Glucose Lactic Acid Calcium Total Bilirubin AST ALT Alkaline Phosphatase Creatine Kinase Troponin I 0.13 H Total Protein Albumin Total Amylase Lipase Urine Color Urine Appearance Urine pH Ur Specific [place] Urine Protein Urine Glucose (UA) Urine Ketones Urine Blood Urine Nitrite Urine Bilirubin Urine Urobilinogen Ur Leukocyte Esterase Urine WBC (Auto) Urine RBC (Auto) Urine Casts (Auto) U Epithel Cells (Auto) Urine Bacteria (Auto) 11/27/18 11/27/18 05:30 13:57 WBC RBC Hgb Hct MCV MCH MCHC RDW Plt Count MPV Absolute Neuts (auto) Neutrophils % Lymphocytes % Monocytes % Eosinophils % Basophils % Nucleated RBC % PT with INR INR PTT (Actin FS) Sodium 139 Potassium 4.1 Chloride 106 Carbon Dioxide 24 Anion Gap 9 BUN 41.4 H Creatinine 1.3 Est GFR (CKD-EPI)AfAm 43.02 Est GFR (CKD-EPI)NonAf 37.12 POC Glucometer 303 Random Glucose 187 H Lactic Acid Calcium 8.8 Total Bilirubin 0.3 AST 21 ALT 19 Alkaline Phosphatase 99 Creatine Kinase 31 Troponin I 0.10 H Total Protein 6.3 L Albumin 2.7 L Total Amylase Lipase Urine Color Urine Appearance Urine pH Ur Specific [place] Urine Protein Urine Glucose (UA) Urine Ketones Urine Blood Urine Nitrite Urine Bilirubin Urine Urobilinogen Ur Leukocyte Esterase Urine WBC (Auto) Urine RBC (Auto) Urine Casts (Auto) U Epithel Cells (Auto) Urine Bacteria (Auto) Active Medications Generic Name Dose Route Start Last Admin Trade Name Freq PRN Reason Stop Dose Admin Acetaminophen 650 mg 11/26/18 13:58 11/27/18 02:29 Tylenol - PO 650 mg Q4H PRN Administration PAIN LEVEL 6-10 Aspirin 81 mg 11/27/18 10:00 11/27/18 10:04 Asa - PO 81 mg DAILY ERNIE Administration Heparin Sodium (Porcine) 5,000 unit 11/26/18 14:00 11/27/18 13:20 Heparin - SQ 5,000 unit TID ERNIE Administration Dextrose/Sodium Chloride 1,000 mls @ 40 mls/hr 11/27/18 11:58 11/27/18 13:19 D5-1/2ns - IV 40 mls/hr ASDIR ERNIE Administration Insulin Aspart 1 vial 11/27/18 16:30 Novolog Vial Sliding Scale - SQ ACHS [facility] Protocol Levothyroxine Sodium 75 mcg 11/27/18 07:00 11/27/18 06:32 Synthroid - PO 75 mcg DAILY@0700 ERNIE Administration Ondansetron HCl 4 mg 11/26/18 13:58 11/27/18 13:19 Zofran Injection IVPUSH 4 mg Q8H PRN Administration NAUSEA AND/OR VOMITING Pantoprazole Sodium 40 mg 11/27/18 10:00 11/27/18 10:04 Protonix - PO 40 mg DAILY ERNIE Administration Prednisone 10 mg 11/27/18 10:00 11/27/18 10:04 Deltasone - PO 10 mg DAILY ERNIE Administration Vital Signs Temp 98.3 F 11/27/18 15:00 Pulse 91 H 11/27/18 15:00 Resp 18 11/27/18 15:00 BP 136/86 11/27/18 15:00 Pulse Ox 98 11/27/18 09:00 Intake & Output 11/26/18 11/27/18 11/27/18 23:59 11:59 23:59 Intake Total 250 350 200 Output Total 150 300 400 Balance 100 50 -200 Intake: IV 250 350 D5-1/2Ns - 1,000 ml @ 50 250 350 mls/hr IV ASDIR ERNIE Rx#: [id number] Oral 0 200 Output: Urine 150 300 400 Ríos 300 400 Void 150 Other: Voiding Method Indwelling Catheter Indwelling Catheter Indwelling Catheter Bowel Movement Yes Yes # Bowel Movements 1 Body Mass Index (BMI) 23.8 ASSESSMENT/PLAN: 87F w/ HTN, HLD, DM, CKD, SLE, hypothyroidism, pulmonary hypertension sent in from [place] due to complaint of abd pain and ID labwork showing elevated troponins. Tropnonis trended down, heparin gtt was started but stopped. Code sanz 11/26/18, called for concern of AMS, nonverbal response and gaze deviated to the right. CT showed multifocal infarcts(Left paracentral alicia, early subacute infarct in the Right cerebellum, Left occipital lobe, Left cingulate gyrus, subacute fiinfacrct of Right posterior frontal lobe); CTA brain and neck mid-basilar stenosis and L MANAGED SERVICES CONSULTANT occlusion; carotid U/S showing no significant stenosis. #AMS --resolving >CTH(11/26/18) showed multifocal infarcts(Left paracentral alicia, early subacute infarct in the Right cerebellum, Left occipital lobe, Left cingulate gyrus, subacute infacrct of Right posterior frontal lobe) >CTH(11/27/18) showing no hemorrhagic conversion >CTA brain and neck(11/26/18) mid-basilar stenosis and L MANAGED SERVICES CONSULTANT occlusion; >carotid U/S(11/26/18) showing no significant stenosis -ASA -statin to be started -Neuro(Dickoff) consulted --acute L cerebral or brainstem CVA. --R/O Cardioembolic Source HOWEVER the multiple sites of (Bilateral) ischemia are most consistent with Basilar artery stenosis/occlusion --Agree with prior Fosphenytoin load 1 gram equivalent IVP x 1 --Admit to telemetry floor for Holter monitor, ECHO --Repeat CT of head in AM (C-) particularly to view evolution of ischemic changes and especially to R/O hemorrhagic conversion of Right parietal CVA. --Prognosis of Basilar artery occlusion is grim -S&S eval --Small Bites, Trial Feedings, Safe Rate, 1/2 tsp. at a time, Elevate HOB during feed #abd pain >Abd MRI(11/25/18): limited due to pt motion artifact. Pancreas w/ parenchymal cysts. 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 I reviewed the resident's note and discussed the case with the resident. I agree with the resident's findings and plan as documented. SUBJECTIVE: OBJECTIVE: ASSESSMENT AND PLAN:
[2018-11-27] MEDS: INSULIN SLIDING SCALE (NOVOLOG) 1 VIAL SQ SCH ×2 (17:58→22:31)
[2018-11-28] MEDS: HEPARIN NA (PORCINE) 5,000 UNITS/ML 1ML VIAL SQ SCH ×3 (05:59→21:56)
[2018-11-28] MEDS: INSULIN SLIDING SCALE (NOVOLOG) 1 VIAL SQ SCH ×4 (05:59→21:56)
[2018-11-28] MEDS: LEVOTHYROXINE NA 75 MCG TABLET (FP) PO SCH (06:01)
[2018-11-28] MEDS: predniSONE 10 MG TABLET (UD) PO SCH (10:34)
[2018-11-28] MEDS: ASPIRIN 81 MG CHEWABLE TABLETS PO SCH (10:34)
[2018-11-28] MEDS: PANTOPRAZOLE 40 MG TABLET (FP) PO SCH (10:34)
--- NOTE | 2018-11-28 11:36 | PN ---
Progress Note (short form) - Note Progress Note: NEUROlOGY PROGRESS: Events reviewed and discussed with Hospitalist team, residential property tax appraiser (Dr. Amezcua) and FRANKIE Leon. Cardiology consult read and appreciated- no evidence or an embologenic arrhythmia. S/P STEMI Daughter at bedside this AM but not in PM when examined by me. Repeat Head Ct (C-) -reviewed by me: New right parietooccipital infarct with luxury perfusion and petichial hemorrhages; B/L cerebellar infarcts and Left occipetal infarct. Pt now admitted to telemetry floor. Now on ASA and SQ Heparin for DVT prophylaxis. NEURO: Awake, alert, responsive but confused. Possibly hallucinating? [facility] "Pax" December. TRUMP. Poor reversals. Poor recall. CNII-CNXII: Gaze preference to R has resolved. Full EOM's. Dense right homonous hemianopsia. Threat to blink from left. No facial. Drinking small sips H20 Motor: Mildly increase tone. No obvious ocal weakness. Decreased JAMIE' s on R. Reflexes brisk throughout. R Babinski. left equivocal. Coordination: No FTN dystaxia on R. Sensation: feels pinch in legs and R arm. gait: deferred Impression: Mod B/L Cerebral dysfunction with probable underlying OMS. New, clear focality, especially right homonous hemianopsia suggesting Acute L cerebral Dysfunction. More widespread ischemic changes on neuroimmaging as well as the CT angio support Basilar artery stenosis/occlusion. SUGGEST: Feed cautiously Bedside PT Antiplatelet Rx. Check B12, TSH, RPR. Will continue to require SNF level of care. Thank you very much, Imtiaz Vazquez MD
--- NOTE | 2018-11-28 11:43 | PN ---
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 Poor PO acceptance. Took one sip of water, grimaced but good tolerance. \\Daughter reports that she was speaking "normally" at home with good recall. Impaired speech initiation, good repetition, frequent paraphasic errors upon confriopntation naming. REponses limited to 1-2 word hesitant responses. Grossly oriented to hospital, Pres, age "7" for 87. Expressive Language deficits, improving. Refusing PO trials. Rec: trial Dys ground/thin liquids, magic cup, ensure pudding, Ensure
[2018-11-28] MEDS: DEXTROSE 5%-0.45% SALINE 1,000 ML IV SCH (12:28)
[2018-11-28] MEDS ORDERED: SODIUM CHLORIDE 0.45% 1,000 ML IV SCH (14:30)
--- NOTE | 2018-11-28 14:30 | PN ---
Teaching Attending Note Name of Resident: Guillermo Amezcua ATTENDING PHYSICIAN STATEMENT I saw and evaluated the patient. I reviewed the resident's note and discussed the case with the resident. I agree with the resident's findings and plan as documented with exceptions below. SUBJECTIVE: Patient seen and examined, awake, oriented to self, follows simple commands, limited ROS given lack of participation in the interview OBJECTIVE: Vital Signs Period Temp Pulse Resp BP Sys/Lovell Pulse Ox Last 24 Hr 98.1 F-98.8 F 81-96 16-18 124-175/73-87 96 Intake & Output 11/25/18 11/26/18 11/27/18 11/28/18 23:59 23:59 23:59 23:59 Intake Total 835 599 1336 620 Output Total 150 900 500 Balance 840 200 400 120 General: sitting in bed, awake, follows simple commands Neck: soft, supple CVS:S1S2 irregular Chest: poor effort, no rales or wheezing appreciated Abdomen:soft, non specific grimacing, no voluntary or involuntary guarding or rigidity, pos bowel sounds extremities: no edema Neuro: Awake, oriented to self, no nystagmus, mild flattening left nasolabial fold, Hyperreflexia LUE/LLE, LUE/LLE power 4/5, RUE/RLE 5/5, left sided neglect , answers in mono syllables, further exam limited Home Medications Medication Instructions Recorded Aspirin Coated [Ecotrin -] 81 mg PO DAILY tablet.ec 09/26/18 Glyburide [Micronase -] 5 mg PO DAILY@0700 tablet 09/26/18 Furosemide [Lasix -] 20 mg PO ASDIR 11/05/18 Acetaminophen 650 mg PO Q6H PRN 11/21/18 Gabapentin 200 mg PO HS 11/21/18 Gabapentin [Neurontin -] 100 mg PO BID 11/21/18 Levothyroxine [Synthroid -] 75 mcg PO DAILY@0700 11/21/18 Lidocaine 5% Patch [Lidoderm Patch 1 patch TP DAILY 11/21/18 -] Pantoprazole Sodium [Protonix] 40 mg PO DAILY 11/21/18 Polyethylene Glycol 3350 17 gm PO DAILY 11/21/18 Tamsulosin HCl 0.4 mg PO DAILY 11/21/18 traMADol HCL [Ultram -] 50 mg PO Q12H 10/03/19 Active Medications Acetaminophen (Tylenol -) 650 mg PO Q4H PRN PRN Reason: PAIN LEVEL 6-10 Last Admin: 11/27/18 02:29 Dose: 650 mg Aspirin (Asa -) 81 mg PO DAILY [facility] Last Admin: 11/28/18 10:34 Dose: 81 mg Heparin Sodium (Porcine) (Heparin -) 5,000 unit SQ TID [facility] Last Admin: 11/28/18 05:59 Dose: 5,000 unit Sodium Chloride (1/2 Normal Saline) 1,000 mls @ 42 mls/hr IV ASDIR [facility] Insulin Aspart (Novolog Vial Sliding Scale -) 1 vial SQ ACHS [facility]; Protocol Last Admin: 11/28/18 12:31 Dose: 2 units Levothyroxine Sodium (Synthroid -) 75 mcg PO DAILY@0700 [facility] Last Admin: 11/28/18 06:01 Dose: 75 mcg Metoprolol Tartrate (Lopressor -) 25 mg PO BID [facility] Ondansetron HCl (Zofran Injection) 4 mg IVPUSH Q8H PRN PRN Reason: NAUSEA AND/OR VOMITING Last Admin: 11/27/18 13:19 Dose: 4 mg Pantoprazole Sodium (Protonix -) 40 mg PO DAILY [facility] Last Admin: 11/28/18 10:34 Dose: 40 mg Prednisone (Deltasone -) 10 mg PO DAILY [facility] Last Admin: 11/28/18 10:34 Dose: 10 mg Laboratory Results - last 24 hr 11/27/18 11/27/18 11/28/18 17:52 22:17 05:56 POC Glucometer 280 174 152 11/28/18 12:30 POC Glucometer 186 Microbiology 11/26/18 17:00 Urine - Urine Ríos Urine Culture - Final NO GROWTH OBTAINED 11/26/18 19:00 Blood - Peripheral Venous Blood Culture - Preliminary NO GROWTH OBTAINED AFTER 24 HOURS, INCUBATION TO CONTINUE FOR 4 DAYS. 11/26/18 19:00 Blood - Peripheral Venous Blood Culture - Preliminary NO GROWTH OBTAINED AFTER 24 HOURS, INCUBATION TO CONTINUE FOR 4 DAYS. 11/21/18 11:00 Blood - Peripheral Venous Blood Culture - Final NO GROWTH AFTER 5 DAYS INCUBATION 11/21/18 11:00 Blood - Peripheral Venous Blood Culture - Final NO GROWTH AFTER 5 DAYS INCUBATION 11/21/18 11:23 Urine - Urine Clean Catch Urine Culture - Final Vr Ec Faecium CT brain x2 and CTA head/neck results reviewed ASSESSMENT AND PLAN: 87 yof with PMhx of HTN, HLD, CKD, SLE, hypothyroidism, Pul HTN, recent CCY 2018, sent from [facility] with body aches, fatigue, abdominal pain, found with elevated trop, course complicated by Code gautam on 11/26/2018, found with acute CVA -Acute CVA right cerebellum, ?alicia, in the left TECHNICAL EDITOR territory -Subacute CVA right posterior frontal/right parietal/right temporal lobe in Right MCA territory -AMS, suspected from above -JACIEL on CKD -Elevated Troponin -SLE, generalized body aches -VRE in urine -Hypothyroidism Plan: Repeat CT head results noted. Per neurology, ?Suspicious for basilar artery occlusion. r/o cardioembolic source. AC/Anti-platelets per neuro/cardiology. Carotid duplex/2D echo results noted. Discuss with cardiology about need for YENI/Holter pending neurology input. Out of permissive HTN window, start lopressor. Speech/swallow input noted Hyperglycemia, change IVF to 1/2 NS at 42 ml/hr Aspiration precautions On prednisone 10 mg daily. Rheumatology input. ID input noted. Monitor off abx. Continue levothyroxine. Renal input noted, lasix on hold, IVF decreased, monitor volume status closely. MRCP noted, abdominal exam benign, PO as tolerated and monitor clinically. ISS, DVTPPX heparin Dispo plan for d/c back to [facility] pending neuro/cardiology input, need for additional w/u. Discussed with nursing, family at bedside.
[2018-11-28] MEDS: ACETAMINOPHEN 325 MG TABLET (FP) PO PRN ×2 (14:43→21:57)
--- NOTE | 2018-11-28 14:46 | PN ---
Progress Note, Physician History of Present Illness: patient stable no new issues - Current Medication List Current Medications: Active Medications Acetaminophen (Tylenol -) 650 mg PO Q4H PRN PRN Reason: PAIN LEVEL 6-10 Last Admin: 11/27/18 02:29 Dose: 650 mg Aspirin (Asa -) 81 mg PO DAILY [facility] Last Admin: 11/28/18 10:34 Dose: 81 mg Heparin Sodium (Porcine) (Heparin -) 5,000 unit SQ TID [facility] Last Admin: 11/28/18 05:59 Dose: 5,000 unit Sodium Chloride (1/2 Normal Saline) 1,000 mls @ 42 mls/hr IV ASDIR [facility] Insulin Aspart (Novolog Vial Sliding Scale -) 1 vial SQ ACHS [facility]; Protocol Last Admin: 11/28/18 12:31 Dose: 2 units Levothyroxine Sodium (Synthroid -) 75 mcg PO DAILY@0700 [facility] Last Admin: 11/28/18 06:01 Dose: 75 mcg Metoprolol Tartrate (Lopressor -) 25 mg PO BID [facility] Ondansetron HCl (Zofran Injection) 4 mg IVPUSH Q8H PRN PRN Reason: NAUSEA AND/OR VOMITING Last Admin: 11/27/18 13:19 Dose: 4 mg Pantoprazole Sodium (Protonix -) 40 mg PO DAILY [facility] Last Admin: 11/28/18 10:34 Dose: 40 mg Prednisone (Deltasone -) 10 mg PO DAILY [facility] Last Admin: 11/28/18 10:34 Dose: 10 mg - Objective Vital Signs: Vital Signs Temperature 98.7 F 11/28/18 14:16 Pulse Rate 94 H 11/28/18 14:16 Respiratory Rate 18 11/28/18 14:16 Blood Pressure 149/87 11/28/18 14:16 O2 Sat by Pulse Oximetry (%) 96 11/27/18 21:00 Constitutional: Yes: No Distress, Calm Cardiovascular: Yes: Pulse Irregular, S1, S2 Respiratory: Yes: Regular, CTA Bilaterally Gastrointestinal: Yes: Normal Bowel Sounds, Soft, Tenderness Musculoskeletal: Yes: WNL Extremities: Yes: WNL Neurological: Yes: Alert, Other Psychiatric: Yes: Other Labs: CBC, BMP 11/27/18 05:30 11/27/18 05:30 INR, PTT INR 1.01 (0.83-1.09) 11/26/18 19:00 Assessment/Plan positive troponin CKD H/O lupus abd pain atrophic right kidney pleural effusions uti lethargy plan nutrition continue current mgmt neuro on board await for imaging studies results
--- NOTE | 2018-11-28 15:15 | PN ---
Progress Note, Physician History of Present Illness: Pt seen and examined at bedside. She is awake and alert. She appears comfortable. - Current Medication List Current Medications: Active Medications Acetaminophen (Tylenol -) 650 mg PO Q4H PRN PRN Reason: PAIN LEVEL 6-10 Last Admin: 11/28/18 14:43 Dose: 650 mg Aspirin (Asa -) 81 mg PO DAILY [facility] Last Admin: 11/28/18 10:34 Dose: 81 mg Heparin Sodium (Porcine) (Heparin -) 5,000 unit SQ TID [facility] Last Admin: 11/28/18 14:40 Dose: 5,000 unit Sodium Chloride (1/2 Normal Saline) 1,000 mls @ 42 mls/hr IV ASDIR [facility] Last Admin: 11/28/18 14:42 Dose: 42 mls/hr Insulin Aspart (Novolog Vial Sliding Scale -) 1 vial SQ ACHS [facility]; Protocol Last Admin: 11/28/18 12:31 Dose: 2 units Levothyroxine Sodium (Synthroid -) 75 mcg PO DAILY@0700 [facility] Last Admin: 11/28/18 06:01 Dose: 75 mcg Metoprolol Tartrate (Lopressor -) 25 mg PO BID [facility] Ondansetron HCl (Zofran Injection) 4 mg IVPUSH Q8H PRN PRN Reason: NAUSEA AND/OR VOMITING Last Admin: 11/27/18 13:19 Dose: 4 mg Pantoprazole Sodium (Protonix -) 40 mg PO DAILY [facility] Last Admin: 11/28/18 10:34 Dose: 40 mg Prednisone (Deltasone -) 10 mg PO DAILY [facility] Last Admin: 11/28/18 10:34 Dose: 10 mg - Objective Vital Signs: Vital Signs Temperature 98.7 F 11/28/18 14:16 Pulse Rate 94 H 11/28/18 14:16 Respiratory Rate 18 11/28/18 14:16 Blood Pressure 149/87 11/28/18 14:16 O2 Sat by Pulse Oximetry (%) 96 11/27/18 21:00 Constitutional: Yes: Calm Eyes: Yes: Conjunctiva Clear HENT: Yes: Atraumatic Cardiovascular: Yes: S1, S2 Respiratory: Yes: On Nasal O2 Gastrointestinal: Yes: Soft Genitourinary: Yes: Incontinence Musculoskeletal: Yes: Muscle Weakness Edema: No Neurological: Yes: Oriented Psychiatric: Yes: Oriented Labs: CBC, BMP 11/27/18 05:30 11/27/18 05:30 INR, PTT INR 1.01 (0.83-1.09) 11/26/18 19:00 Problem List - Problems (1) Renal insufficiency Code(s): N28.9 - DISORDER OF KIDNEY AND URETER, UNSPECIFIED Assessment/Plan Current Medications Generic Name Dose Route Start Last Admin Trade Name Freq PRN Reason Stop Dose Admin Acetaminophen 650 mg 11/26/18 13:58 11/28/18 14:43 Tylenol - PO 650 mg Q4H PRN Administration PAIN LEVEL 6-10 Aspirin 81 mg 11/27/18 10:00 11/28/18 10:34 Asa - PO 81 mg DAILY ERNIE Administration Heparin Sodium (Porcine) 5,000 unit 11/26/18 14:00 11/28/18 14:40 Heparin - SQ 5,000 unit TID ERNIE Administration Sodium Chloride 1,000 mls @ 42 mls/hr 11/28/18 14:30 11/28/18 14:42 1/2 Normal Saline IV 42 mls/hr ASDIR ERNIE Administration Insulin Aspart 1 vial 11/27/18 16:30 11/28/18 12:31 Novolog Vial Sliding Scale - SQ 2 units ACHS ERNIE Administration Protocol Levothyroxine Sodium 75 mcg 11/27/18 07:00 11/28/18 06:01 Synthroid - PO 75 mcg DAILY@0700 ERNIE Administration Metoprolol Tartrate 25 mg 11/28/18 22:00 Lopressor - PO BID ERNIE Ondansetron HCl 4 mg 11/26/18 13:58 11/27/18 13:19 Zofran Injection IVPUSH 4 mg Q8H PRN Administration NAUSEA AND/OR VOMITING Pantoprazole Sodium 40 mg 11/27/18 10:00 11/28/18 10:34 Protonix - PO 40 mg DAILY ERNIE Administration Prednisone 10 mg 11/27/18 10:00 11/28/18 10:34 Deltasone - PO 10 mg DAILY ERNIE Administration Impression positive troponin CKD H/O lupus proteinuria atrophic right kidney pleural effusions Plan - can observe off of fluids - encourage PO intake - monitor renal function - avoid nsaids if possible
--- NOTE | 2018-11-28 19:33 | PN ---
Physical Exam: SUBJECTIVE: Patient seen and examined. Endorses mild abdominal pain. Daughter thinks patient is mentally worse than yesterday OBJECTIVE: Vital Signs Period Temp Pulse Resp BP Sys/Lovell Pulse Ox Last 24 Hr 98.1 F-98.8 F 81-96 16-18 124-175/73-87 96-96 GENERAL: The patient is awake, alert, Oriented to self. In no acute distress. HEAD: Normal with no signs of trauma. Severe temporal wasting EYES: extraocular movements intact, sclera anicteric, conjunctiva clear. ENT: Ears normal, nares patent, oropharynx clear without exudates, moist mucous membranes. NECK: Trachea midline, full range of motion, supple. LUNGS: Breath sounds equal, clear to auscultation bilaterally, no wheezes, no crackles, no accessory muscle use. HEART: Regular rate and rhythm, S1, S2 without murmur, rub or gallop. ABDOMEN: Soft, nondistended, normoactive bowel sounds, no guarding, no rebound. Mildly tender to deep palpation of epigastrium EXTREMITIES: 2+ pulses, warm, well-perfused, no edema. NEUROLOGICAL: Gait not observed. Speaking in short sentences. 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 Left hand with weak oil refiner. Increased tonicity of LUE and LLE PSYCH: Normal mood, normal affect. SKIN: Warm, dry, normal turgor, no rashes or lesions noted Laboratory Results - last 24 hr 11/27/18 11/28/18 11/28/18 22:17 05:56 12:30 POC Glucometer 174 152 186 11/28/18 17:22 POC Glucometer 247 Active Medications Generic Name Dose Route Start Last Admin Trade Name Flory PRN Reason Stop Dose Admin Acetaminophen 650 mg 11/26/18 13:58 11/28/18 14:43 Tylenol - PO 650 mg Q4H PRN Administration PAIN LEVEL 6-10 Aspirin 81 mg 11/27/18 10:00 11/28/18 10:34 Asa - PO 81 mg DAILY ERNIE Administration Heparin Sodium (Porcine) 5,000 unit 11/26/18 14:00 11/28/18 14:40 Heparin - SQ 5,000 unit TID ERNIE Administration Sodium Chloride 1,000 mls @ 42 mls/hr 11/28/18 14:30 11/28/18 14:42 1/2 Normal Saline IV 42 mls/hr ASDIR ERNIE Administration Insulin Aspart 1 vial 11/27/18 16:30 11/28/18 17:24 Novolog Vial Sliding Scale - SQ 4 units ACHS ERNIE Administration Protocol Levothyroxine Sodium 75 mcg 11/27/18 07:00 11/28/18 06:01 Synthroid - PO 75 mcg DAILY@0700 ERNIE Administration Metoprolol Tartrate 25 mg 11/28/18 22:00 Lopressor - PO BID ERNIE Ondansetron HCl 4 mg 11/26/18 13:58 11/27/18 13:19 Zofran Injection IVPUSH 4 mg Q8H PRN Administration NAUSEA AND/OR VOMITING Pantoprazole Sodium 40 mg 11/27/18 10:00 11/28/18 10:34 Protonix - PO 40 mg DAILY ERNIE Administration Prednisone 10 mg 11/27/18 10:00 11/28/18 10:34 Deltasone - PO 10 mg DAILY ERNIE Administration ASSESSMENT/PLAN: 87F w/ HTN, HLD, DM, CKD, SLE, hypothyroidism, pulmonary hypertension sent in [place] due to complaint of abd pain and [place] labwork showing elevated troponins. Tropnonis trended down, heparin gtt was started but stopped. Code sanz 11/26/18, called for concern of AMS, nonverbal response and gaze deviated to the right. CT showed multifocal infarcts(Left paracentral alicia, early subacute infarct in the Right cerebellum, Left occipital lobe, Left cingulate gyrus, subacute fiinfacrct of Right posterior frontal lobe); CTA brain and neck mid-basilar stenosis and L [employer]AL occlusion; carotid U/S showing no significant stenosis. #AMS --worse than yesterday >CTH(11/26/18) showed multifocal infarcts(Left paracentral alicia, early subacute infarct in the Right cerebellum, Left occipital lobe, Left cingulate gyrus, subacute infacrct of Right posterior frontal lobe) >CTH(11/27/18) showing no hemorrhagic conversion >CTA brain and neck(11/26/18) mid-basilar stenosis and L [employer] occlusion; >carotid U/S(11/26/18) showing no significant stenosis -ASA -statin to be started -Neuro(Dickoff) consulted --acute L cerebral or brainstem CVA. --R/O Cardioembolic Source HOWEVER the multiple sites of (Bilateral) ischemia are most consistent with Basilar artery stenosis/occlusion --Agree with prior Fosphenytoin load 1 gram equivalent IVP x 1 --Admit to telemetry floor for Holter monitor, ECHO --Repeat CT of head in AM (C-) particularly to view evolution of ischemic changes and especially to R/O hemorrhagic conversion of Right parietal CVA. --Prognosis of Basilar artery occlusion is grim --ASA -Cardiology(Jonna) consulted --recommends against YENI as it would be low-yield given that TTE was normal, pt might not tolerate procedure, recommends discussion of GOC with family -will consider outpatient Holter monitor -S&S eval --Small Bites, Trial Feedings, Safe Rate, 1/2 tsp. at a time, Elevate HOB during feed #abd pain >Abd MRI(11/25/18): limited due to pt motion artifact. Pancreas w/ parenchymal cysts. Thickening of gastric fundus -continue to monitor w/ daily abd exams #UTI >UCX(11/21/18): VRE, 50-60k CFU -holding abx for now d/t low CFU count #urinary retention -dc flomax d/t hypotension #JACIEL on CKD -gentle mIVF #SLE -Rheum consult(Dr Parks): [place] -cw prednisone #DM -dc'd home glyburide -cw ISS #hypothyroidism -cw levothyroxine #FEN -dysphagia diet -D5 1/2 NS @40 #DVT prophylaxis -subcutaneous heparin Visit type - Emergency Visit Emergency Visit: No - New Patient This patient is new to me today: No - Critical Care Critical Care patient: No ATTENDING PHYSICIAN STATEMENT I saw and evaluated the patient. I reviewed the resident's note and discussed the case with the resident. I agree with the resident's findings and plan as documented. SUBJECTIVE: OBJECTIVE: ASSESSMENT AND PLAN:
[2018-11-28] MEDS: METOPROLOL TARTRATE 25 MG TABLET (FP) PO SCH (21:56)
[2018-11-29] MEDS: HEPARIN NA (PORCINE) 5,000 UNITS/ML 1ML VIAL SQ SCH ×3 (06:08→21:08)
[2018-11-29] MEDS: LEVOTHYROXINE NA 75 MCG TABLET (FP) PO SCH (06:34)
[2018-11-29] MEDS: INSULIN SLIDING SCALE (NOVOLOG) 1 VIAL SQ SCH ×4 (06:35→21:08)
--- NOTE | 2018-11-29 10:00 | PN ---
Progress Note, [employer] - Note Progress Note: Selected Entries 11/27/18 11/27/18 11/27/18 02:26 06:00 10:00 Breakfast Lunch Temperature 97.5 F L 96.2 F L 97.5 F L 11/27/18 11/27/18 11/28/18 15:00 22:00 02:38 Breakfast 50% Lunch 50% Temperature 98.3 F 98.2 F 98.1 F 11/28/18 11/28/18 07:00 10:47 Breakfast Lunch Temperature 98.8 F 98.4 F Laboratory Tests 11/27/18 05:30 WBC 6.8 Selected Entries 11/29/18 11/29/18 02:00 06:37 Temperature 97.8 F 97.9 F Laboratory Tests 11/27/18 05:30 WBC 6.8 On puree/nectar. Poor PO acceptance. Took one sip of water, grimaced but good tolerance. . Expressive Language deficits, improving. Limited PO trials. Rec: trial Dys ground/thin liquids, magic cup, ensure pudding, Ensure
[2018-11-29] MEDS: METOPROLOL TARTRATE 25 MG TABLET (FP) PO SCH ×2 (11:13→21:07)
[2018-11-29] MEDS: ASPIRIN 81 MG CHEWABLE TABLETS PO SCH (11:13)
[2018-11-29] MEDS: PANTOPRAZOLE 40 MG TABLET (FP) PO SCH (11:13)
--- NOTE | 2018-11-29 12:35 | PN ---
Teaching Attending Note Name of Resident: Guillermo Amezcua ATTENDING PHYSICIAN STATEMENT I saw and evaluated the patient. I reviewed the resident's note and discussed the case with the resident. I agree with the resident's findings and plan as documented with exceptions below. SUBJECTIVE: Patient seen and examined. awake, pleasant, smiling, no complaints. Daughter at bedside. OBJECTIVE: Vital Signs Period Temp Pulse Resp BP Sys/Lovell Pulse Ox Last 24 Hr 97.8 F-98.7 F 72-94 16-20 144-162/54-87 96 Intake & Output 11/26/18 11/27/18 11/28/18 11/29/18 23:59 23:59 23:59 23:59 Intake Total 350 1300 1154 600 Output Total 150 900 800 200 Balance 200 400 354 400 General: sitting in bed, smiling, no acute distress Neck: soft, supple Chest: improved effort, no rales or wheezing Abdomen:soft, NT Extremities: no edema Neuro: more awake and smiling, mild left nasolabial flattening, LUE/LLE 4/5, hyperreflexia, left sided neglect, no new concerns on exam Home Medications Medication Instructions Recorded Aspirin Coated [Ecotrin -] 81 mg PO DAILY tablet.ec 09/26/18 Glyburide [Micronase -] 5 mg PO DAILY@0700 tablet 09/26/18 Furosemide [Lasix -] 20 mg PO ASDIR 11/05/18 Acetaminophen 650 mg PO Q6H PRN 11/21/18 Gabapentin 200 mg PO HS 11/21/18 Gabapentin [Neurontin -] 100 mg PO BID 11/21/18 Levothyroxine [Synthroid -] 75 mcg PO DAILY@0700 11/21/18 Lidocaine 5% Patch [Lidoderm Patch 1 patch TP DAILY 11/21/18 -] Pantoprazole Sodium [Protonix] 40 mg PO DAILY 11/21/18 Polyethylene Glycol 3350 17 gm PO DAILY 11/21/18 Tamsulosin HCl 0.4 mg PO DAILY 11/21/18 traMADol HCL [Ultram -] 50 mg PO Q12H 11/21/18 Active Medications Acetaminophen (Tylenol -) 650 mg PO Q4H PRN PRN Reason: PAIN LEVEL 6-10 Last Admin: 11/28/18 21:57 Dose: 650 mg Aspirin (Asa -) 81 mg PO DAILY ERNIE Last Admin: 11/29/18 11:13 Dose: 81 mg Clopidogrel Bisulfate (Plavix -) 75 mg PO DAILY [facility] Heparin Sodium (Porcine) (Heparin -) 5,000 unit SQ TID [facility] Last Admin: 11/29/18 06:08 Dose: 5,000 unit Sodium Chloride (1/2 Normal Saline) 1,000 mls @ 42 mls/hr IV ASDIR [facility] Last Admin: 11/28/18 14:42 Dose: 42 mls/hr Insulin Aspart (Novolog Vial Sliding Scale -) 1 vial SQ ACHS [facility]; Protocol Last Admin: 11/29/18 11:16 Dose: 2 units Levothyroxine Sodium (Synthroid -) 75 mcg PO DAILY@0700 [facility] Last Admin: 11/29/18 06:34 Dose: 75 mcg Metoprolol Tartrate (Lopressor -) 25 mg PO BID [facility] Last Admin: 11/29/18 11:13 Dose: 25 mg Ondansetron HCl (Zofran Injection) 4 mg IVPUSH Q8H PRN PRN Reason: NAUSEA AND/OR VOMITING Last Admin: 11/27/18 13:19 Dose: 4 mg Pantoprazole Sodium (Protonix -) 40 mg PO DAILY [facility] Last Admin: 11/29/18 11:13 Dose: 40 mg Prednisone (Deltasone -) 10 mg PO DAILY [facility] Last Admin: 11/28/18 10:34 Dose: 10 mg Laboratory Results - last 24 hr 11/28/18 11/28/18 11/29/18 17:22 21:55 06:35 POC Glucometer 247 178 143 11/29/18 11:16 POC Glucometer 187 ASSESSMENT AND PLAN: 87 yof with PMhx of HTN, HLD, CKD, SLE, hypothyroidism, Pul HTN, recent CCY 2018, sent from [facility] with body aches, fatigue, abdominal pain, found with elevated trop, course complicated by Code gautam on 11/26/2018, found with acute CVA -Acute CVA right cerebellum, ?alicia, in the left TR[employer] REPA[employer] PERSON territory -Subacute CVA right posterior frontal/right parietal/right temporal lobe in Right MCA territory -AMS, suspected from above -JACIEL on CKD -Elevated Troponin -SLE, generalized body aches -VRE in urine -Hypothyroidism Plan: Doing well, more awake, neurological exam stable. Discusssed with neurology, ASA/plavix. Discussed with cardiology, outpatient follow up. Started on metoprolol with improved BP. tolerating diet, speech/swallow input noted. d/c IVF. check lipid profile, statin accordingly. On prednisone 10 mg daily by PCP, will defer further management. Discussed with patient's family for outpatient PCP follow up in 1 week and rheum follow up to discuss further prednisone taper. ID input noted. Monitor off abx. Continue levothyroxine. Renal input noted, lasix on hold, IVF decreased, monitor volume status closely. MRCP noted, abdominal exam benign, PO as tolerated and monitor clinically. ISS, DVTPPX heparin Dispo dc back to [facility] today with outpatient PCP/neurology/cardiology/ rheumatology follow up. Discussed with nursing, daughter at bedside in detail, all questions answered.
[2018-11-29] MEDS ORDERED: PT OWN MED DRAWER 7, Y5N ONE (13:08)
--- NOTE | 2018-11-29 13:15 | PN ---
Progress Note, Physician History of Present Illness: stable doing well no new issues - Current Medication List Current Medications: Active Medications Acetaminophen (Tylenol -) 650 mg PO Q4H PRN PRN Reason: PAIN LEVEL 6-10 Last Admin: 11/28/18 21:57 Dose: 650 mg Aspirin (Asa -) 81 mg PO DAILY [facility] Last Admin: 11/29/18 11:13 Dose: 81 mg Clopidogrel Bisulfate (Plavix -) 75 mg PO DAILY [facility] Heparin Sodium (Porcine) (Heparin -) 5,000 unit SQ TID [facility] Last Admin: 11/29/18 06:08 Dose: 5,000 unit Insulin Aspart (Novolog Vial Sliding Scale -) 1 vial SQ ACHS [facility]; Protocol Last Admin: 11/29/18 11:16 Dose: 2 units Levothyroxine Sodium (Synthroid -) 75 mcg PO DAILY@0700 [facility] Last Admin: 11/29/18 06:34 Dose: 75 mcg Metoprolol Tartrate (Lopressor -) 25 mg PO BID [facility] Last Admin: 11/29/18 11:13 Dose: 25 mg Ondansetron HCl (Zofran Injection) 4 mg IVPUSH Q8H PRN PRN Reason: NAUSEA AND/OR VOMITING Last Admin: 11/27/18 13:19 Dose: 4 mg Pantoprazole Sodium (Protonix -) 40 mg PO DAILY [facility] Last Admin: 11/29/18 11:13 Dose: 40 mg Prednisone (Deltasone -) 10 mg PO DAILY [facility] Last Admin: 11/28/18 10:34 Dose: 10 mg - Objective Vital Signs: Vital Signs Temperature 98.7 F 11/29/18 11:00 Pulse Rate 79 11/29/18 11:00 Respiratory Rate 18 11/29/18 11:00 Blood Pressure 150/70 11/29/18 11:00 O2 Sat by Pulse Oximetry (%) 96 11/28/18 21:00 Constitutional: Yes: No Distress, Calm Cardiovascular: Yes: S1, S2 Respiratory: Yes: Regular, CTA Bilaterally Gastrointestinal: Yes: Normal Bowel Sounds, Soft Musculoskeletal: Yes: WNL Extremities: Yes: WNL Neurological: Yes: Alert Psychiatric: Yes: Alert Labs: CBC, BMP 11/27/18 05:30 11/27/18 05:30 INR, PTT INR 1.01 (0.83-1.09) 10/08/19 19:00 Assessment/Plan positive troponin CKD H/O lupus abd pain atrophic right kidney pleural effusions uti lethargy plan nutrition continue current mgmt neuro on board rest as per the team
[2018-11-29] MEDS: predniSONE 10 MG TABLET (UD) PO SCH (13:58)
[2018-11-29] MEDS: CLOPIDOGREL BISULFATE 75 MG TABLET (FP) PO SCH (13:58)
[2018-11-29 14:26] LABS: CHOLESTEROL 175 mg/dL (50-200); HDL CHOLESTEROL 39 mg/dL (40-60); LDL CHOLESTEROL (ONLY SJRH) 107 mg/dL (5-100); TRIGLYCERIDES 199 mg/dL (0-150)
--- NOTE | 2018-11-29 14:34 | PN ---
Progress Note, Physician History of Present Illness: Pt seen and examined at bedside. She appears comfortable. She denies shortness of breath. - Current Medication List Current Medications: Active Medications Acetaminophen (Tylenol -) 650 mg PO Q4H PRN PRN Reason: PAIN LEVEL 6-10 Last Admin: 11/28/18 21:57 Dose: 650 mg Aspirin (Asa -) 81 mg PO DAILY [facility] Last Admin: 11/29/18 11:13 Dose: 81 mg Clopidogrel Bisulfate (Plavix -) 75 mg PO DAILY [facility] Last Admin: 11/29/18 13:58 Dose: 75 mg Heparin Sodium (Porcine) (Heparin -) 5,000 unit SQ TID [facility] Last Admin: 11/29/18 13:59 Dose: 5,000 unit Insulin Aspart (Novolog Vial Sliding Scale -) 1 vial SQ ACHS [facility]; Protocol Last Admin: 11/29/18 11:16 Dose: 2 units Levothyroxine Sodium (Synthroid -) 75 mcg PO DAILY@0700 [facility] Last Admin: 11/29/18 06:34 Dose: 75 mcg Metoprolol Tartrate (Lopressor -) 25 mg PO BID [facility] Last Admin: 11/29/18 11:13 Dose: 25 mg Ondansetron HCl (Zofran Injection) 4 mg IVPUSH Q8H PRN PRN Reason: NAUSEA AND/OR VOMITING Last Admin: 11/27/18 13:19 Dose: 4 mg Pantoprazole Sodium (Protonix -) 40 mg PO DAILY [facility] Last Admin: 11/29/18 11:13 Dose: 40 mg Prednisone (Deltasone -) 10 mg PO DAILY [facility] Last Admin: 11/29/18 13:58 Dose: 10 mg - Objective Vital Signs: Vital Signs Temperature 98.7 F 11/29/18 11:00 Pulse Rate 79 11/29/18 11:00 Respiratory Rate 18 11/29/18 11:00 Blood Pressure 150/70 11/29/18 11:00 O2 Sat by Pulse Oximetry (%) 96 11/28/18 21:00 Constitutional: Yes: Calm Eyes: Yes: Conjunctiva Clear HENT: Yes: Atraumatic Cardiovascular: Yes: S1, S2 Respiratory: Yes: On Nasal O2 Gastrointestinal: Yes: Soft Genitourinary: Yes: Incontinence Musculoskeletal: Yes: Muscle Weakness Integumentary: Yes: WNL Neurological: Yes: Oriented Labs: CBC, BMP 11/27/18 05:30 11/27/18 05:30 INR, PTT INR 1.01 (0.83-1.09) 11/26/18 19:00 Problem List - Problems (1) Renal insufficiency Code(s): N28.9 - DISORDER OF KIDNEY AND URETER, UNSPECIFIED Assessment/Plan Current Medications Generic Name Dose Route Start Last Admin Trade Name Freq PRN Reason Stop Dose Admin Acetaminophen 650 mg 11/26/18 13:58 11/28/18 21:57 Tylenol - PO 650 mg Q4H PRN Administration PAIN LEVEL 6-10 Aspirin 81 mg 11/27/18 10:00 11/29/18 11:13 Asa - PO 81 mg DAILY ERNIE Administration Clopidogrel Bisulfate 75 mg 11/29/18 11:45 11/29/18 13:58 Plavix - PO 75 mg DAILY ERNIE Administration Heparin Sodium (Porcine) 5,000 unit 11/26/18 14:00 11/29/18 13:59 Heparin - SQ 5,000 unit TID ERNIE Administration Insulin Aspart 1 vial 11/27/18 16:30 11/29/18 11:16 Novolog Vial Sliding Scale - SQ 2 units ACHS ERNIE Administration Protocol Levothyroxine Sodium 75 mcg 11/27/18 07:00 11/29/18 06:34 Synthroid - PO 75 mcg DAILY@0700 ERNIE Administration Metoprolol Tartrate 25 mg 11/28/18 22:00 11/29/18 11:13 Lopressor - PO 25 mg BID ERNIE Administration Ondansetron HCl 4 mg 11/26/18 13:58 11/27/18 13:19 Zofran Injection IVPUSH 4 mg Q8H PRN Administration NAUSEA AND/OR VOMITING Pantoprazole Sodium 40 mg 11/27/18 10:00 11/29/18 11:13 Protonix - PO 40 mg DAILY ERNIE Administration Prednisone 10 mg 11/27/18 10:00 11/29/18 13:58 Deltasone - PO 10 mg DAILY ERNIE Administration Impression positive troponin CKD H/O lupus proteinuria atrophic right kidney pleural effusions Plan - pt stable off of fluids - encourage po intake - monitor volume status, she was on lasix 20 mg twice a week before - will need to clarify GOC - monitor renal function in rehab - avoid nsaids if possible
--- NOTE | 2018-11-29 17:15 | DS ---
Physical Exam: SUBJECTIVE: Patient seen and examined OBJECTIVE: Vital Signs Period Temp Pulse Resp BP Sys/Lovell Pulse Ox Last 24 Hr 97.8 F-98.7 F 72-90 16-20 144-162/54-86 96 PHYSICAL EXAM GENERAL: The patient is awake, alert, Oriented to self and president. In no acute distress. Pleasant HEAD: Normal with no signs of trauma. Severe temporal wasting EYES: extraocular movements intact, sclera anicteric, conjunctiva clear. ENT: Ears normal, nares patent, oropharynx clear without exudates, moist mucous membranes. NECK: Trachea midline, full range of motion, supple. LUNGS: Breath sounds equal, clear to auscultation bilaterally, no wheezes, no crackles, no accessory muscle use. HEART: Regular rate and rhythm, S1, S2 without murmur, rub or gallop. ABDOMEN: Soft, nondistended, normoactive bowel sounds, no guarding, no rebound. Mildly tender to deep palpation of epigastrium EXTREMITIES: 2+ pulses, warm, well-perfused, no edema. NEUROLOGICAL: Gait not observed. Speaking in short sentences. 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 Left hand with weakened 4/5 magnetic testing technician. Increased tonicity of LUE and LLE. Following commands, CNII -XII intact PSYCH: Normal mood, normal affect. SKIN: Warm, dry, normal turgor, no rashes or lesions noted LABS Laboratory Results - last 24 hr 11/28/18 11/28/18 11/29/18 17:22 21:55 06:35 POC Glucometer 247 178 143 Creatine Kinase Triglycerides Cholesterol Total LDL Cholesterol HDL Cholesterol 11/29/18 11/29/18 11:16 13:35 POC Glucometer 187 Creatine Kinase 32 Triglycerides 199 H Cholesterol 175 Total LDL Cholesterol 107 H HDL Cholesterol 39 L HOSPITAL COURSE: 87F w/ HTN, HLD, DM, CKD, SLE, hypothyroidism, pulmonary hypertension sent [place] due to complaint of abd pain and [place] labwork showing elevated troponins. During hospitalization, tropnonis trended down, heparin gtt was started but then discontinued. Code sanz 11/26/18, called for concern of AMS, nonverbal response and gaze deviated to the right. 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 Repeat CTH(11/27/18) did not shot hemorrhagic conversion. Neuro(George) consulted and thought possible basilar artery stenosis/occlusion that could contribute to b/l ischemic sites. Patient started on ASA + plavix. Cardiology had echo(11/26/18) showing normal LV, RV; recommended against YENI dt low yield and pt fragility. S& S recommended ground/thin liquids. MRI Abd(11/25/18) for abd pain, had moition artifact, pancreatic cysts, thickened gastric fundus. Had episode of urinary retention was briefly received flomax, dc'd dt hypotension. JACIEL improved with mIVF and PO hydration. UCX grew VRE, but no tx was pursued dt only 50-60k CFU. SLE was addressed with prednisone(Kathya), as Rheum(Karenislke) [place] the [place] at that time. Deemed stable for SNF dispo. Date of Admission:11/21/18 Date of Discharge: 11/29/18 Minutes to complete discharge: 20 Discharge Summary Problems reviewed: Yes Reason For Visit: NON ST ELEVATION MYOCARDIAL INFARCTION Current Active Problems Acute respiratory failure with hypoxia (Acute) NSTEMI (non-ST elevated myocardial infarction) (Acute) Weakness (Acute) Condition: Stable - Instructions Diet, Activity, Other Instructions: You were evaluated in the hospital for abdominal pain. Labwork showed elevated heart enzymes that eventually downtrended. You were found to have new onset confusion and imaging showed a stroke involving both sides of the brain. A neurologist was consulted. Aspirin and plavix were administered. Your mental status improved. A production wood craftsman was consulted. Imaging showing a normal functioning heart. A new medication called metoprolol was started to control your high blood pressure and rapid heart beat. Please see the physicians before within 1-2weeks: - PCP(Dr Sidney Rasheed): for follow-up bloodwork to check CPK after starting a statin, continued treatment of your lupus - Packing Room Supervisor(Dr Bennett Coyle): to discuss possible outpatient Holter Monitoring - Neurologist(Dr Imtiaz Vazquez): for follow up evaluate after your stroke - Extruder Operator Horizontal(Dr Saman Parks): to follow up on treatment for your Lupus and steroid dosing Medications: -NEW medications: Clopidogrel[PLAVIX] 75mg once daily, metoprolol tartrate[ LOPRESSOR] 25mg once every 12 hours, prednisone 10mg once daily, Crestor[ Rosuvastatin] 20mg daily, Insulin sliding scale Stop: Glyburide. Additional Instructions: -Diet: ground/thin liquids, magic cup, Ensure pudding, Ensure drinks---Please drink plenty of fluids as necessary -Activity as tolerated -Please be mindful of bleeding; You are being started on Plavix which is a blood thinner and can increase your risk of bleeding, thus please maintain fall precautions -Avoid NSAIDs -If you have any new muscle aches or pains, jaundice or new belly pain, please stop crestor and contact your doctor. -Your glyburide is currently stopped. Continue insulin sliding scale at the facility and oral diabetes medication can be resumed based on blood sugar readings by SNF MD. Please seek immediate medical attention or go the Emergency Department if you experience: -severe headache, dizziness, weakness, inability to move extremities, confusion -chest pain, shortness of breath, trouble breathing -severe abdominal pain Referrals: Imtiaz Vazquez MD [Staff Physician] - Saman Parks MD [Staff Physician] - Bennett Coyle MD [Staff Physician] - Sidney Rasheed MD [Primary Care Provider] - Disposition: [facility]ILITY - Home Medications Comprehensive Discharge Medication List: Ambulatory Orders Aspirin Coated [Ecotrin -] 81 mg PO DAILY tablet.ec 09/26/18 Furosemide [Lasix -] 20 mg PO ASDIR 11/05/18 Acetaminophen 650 mg PO Q6H PRN 11/21/18 Gabapentin 200 mg PO HS 11/21/18 Gabapentin [Neurontin -] 100 mg PO BID 11/21/18 Levothyroxine [Synthroid -] 75 mcg PO DAILY@0700 11/21/18 Lidocaine 5% Patch [Lidoderm -] 1 patch TP DAILY 11/21/18 Pantoprazole Sodium [Protonix] 40 mg PO DAILY 11/21/18 Polyethylene Glycol 3350 17 gm PO DAILY 11/21/18 Tamsulosin HCl 0.4 mg PO DAILY 11/21/18 Clopidogrel Bisulfate [Plavix -] 75 mg PO DAILY 30 Days #30 tablet 11/29/18 Insulin Sliding Scale [Novolog Vial Sliding Scale -] 1 vial SQ ACHS units 11/29 Metoprolol Tartrate [Lopressor -] 25 mg PO BID 30 Days #60 tablet 11/29/18 Rosuvastatin Calcium [Crestor] 20 mg PO DAILY #30 tablet 11/29/18 predniSONE [Deltasone -] 10 mg PO DAILY 30 Days #30 tablet 11/29/18 This patient is new to me today: No Emergency Visit: No Critical Care patient: No - Discharge Referral Referred to [facility] Med P.C.: No ATTENDING PHYSICIAN STATEMENT I saw and evaluated the patient. I reviewed the resident's note and discussed the case with the resident. I agree with the resident's findings and plan as documented. SUBJECTIVE: OBJECTIVE: ASSESSMENT AND PLAN:
--- NOTE | 2018-11-29 19:06 | PN ---
Physical Exam: SUBJECTIVE: Patient seen and examined. NAEON. Episodes of tachy, multiform PVCs on tele. Denies complaints OBJECTIVE: Vital Signs Period Temp Pulse Resp BP Sys/Lovell Pulse Ox Last 24 Hr 97.8 F-98.7 F 72-90 16-20 144-152/54-81 96 GENERAL: The patient is awake, alert, Oriented to self and president. In no acute distress. Pleasant HEAD: Normal with no signs of trauma. Severe temporal wasting EYES: extraocular movements intact, sclera anicteric, conjunctiva clear. ENT: Ears normal, nares patent, oropharynx clear without exudates, moist mucous membranes. NECK: Trachea midline, full range of motion, supple. LUNGS: Breath sounds equal, clear to auscultation bilaterally, no wheezes, no crackles, no accessory muscle use. HEART: Regular rate and rhythm, S1, S2 without murmur, rub or gallop. ABDOMEN: Soft, nondistended, normoactive bowel sounds, no guarding, no rebound. Mildly tender to deep palpation of epigastrium EXTREMITIES: 2+ pulses, warm, well-perfused, no edema. NEUROLOGICAL: Gait not observed. Speaking in short sentences. Right hand fur glazer 4/ 5. Left hand with weakened 4/5 fur glazer. Increased tonicity of LUE and LLE. Following commands, CNII -XII intact PSYCH: Normal mood, normal affect. SKIN: Warm, dry, normal turgor, no rashes or lesions noted Laboratory Results - last 24 hr 11/21/18 11/21/18 11/21/18 11:00 11:00 11:00 WBC 10.7 H RBC 3.79 Hgb 10.7 Hct 32.4 MCV 85.7 MCH 28.3 MCHC 33.1 RDW 16.4 H Plt Count 324 MPV 8.2 Absolute Neuts (auto) 9.0 H Neutrophils % 83.8 H Lymphocytes % 5.3 L D Monocytes % 10.1 Eosinophils % 0.3 D Basophils % 0.5 Nucleated RBC % 0 PT with INR 13.80 H INR 1.17 H PTT (Actin FS) 33.1 Sodium 136 Potassium 4.5 Chloride 105 Carbon Dioxide 19 L Anion Gap 12 BUN 63.0 H Creatinine 1.9 H Est GFR (CKD-EPI)AfAm 27.19 Est GFR (CKD-EPI)NonAf 23.46 POC Glucometer Random Glucose 192 H Hemoglobin A1c % Lactic Acid Calcium 7.7 L Total Bilirubin 0.7 AST 29 ALT 25 Alkaline Phosphatase 96 Creatine Kinase 61 Troponin I 1.22 H* B-Natriuretic Peptide 89345.4 H Total Protein 6.4 Albumin 2.7 L Triglycerides Cholesterol Total LDL Cholesterol HDL Cholesterol Urine Color Urine Appearance Urine pH Ur Specific [place] Urine Protein Urine Glucose (UA) Urine Ketones Urine Blood Urine Nitrite Urine Bilirubin Urine Urobilinogen Ur Leukocyte Esterase Urine WBC (Auto) Urine RBC (Auto) Urine Casts (Auto) U Epithel Cells (Auto) Urine Bacteria (Auto) 11/21/18 11/21/18 11/21/18 11:02 11:23 14:40 WBC RBC Hgb Hct MCV MCH MCHC RDW Plt Count MPV Absolute Neuts (auto) Neutrophils % Lymphocytes % Monocytes % Eosinophils % Basophils % Nucleated RBC % PT with INR INR PTT (Actin FS) Sodium Potassium Chloride Carbon Dioxide Anion Gap BUN Creatinine Est GFR (CKD-EPI)AfAm Est GFR (CKD-EPI)NonAf POC Glucometer Random Glucose Hemoglobin A1c % Lactic Acid 0.8 Calcium Total Bilirubin AST ALT Alkaline Phosphatase Creatine Kinase Troponin I 0.97 H* B-Natriuretic Peptide Total Protein Albumin Triglycerides Cholesterol Total LDL Cholesterol HDL Cholesterol Urine Color Yellow Urine Appearance Clear Urine pH 5.0 Ur Specific [place] 1.014 Urine Protein 2+ H Urine Glucose (UA) Negative Urine Ketones Negative Urine Blood Negative Urine Nitrite Negative Urine Bilirubin Negative Urine Urobilinogen 0.2 Ur Leukocyte Esterase Negative Urine WBC (Auto) 1 Urine RBC (Auto) 2 Urine Casts (Auto) 7 U Epithel Cells (Auto) 1.5 Urine Bacteria (Auto) 3.6 11/21/18 11/22/18 11/22/18 20:30 05:28 06:26 WBC RBC Hgb Hct MCV MCH MCHC RDW Plt Count MPV Absolute Neuts (auto) Neutrophils % Lymphocytes % Monocytes % Eosinophils % Basophils % Nucleated RBC % PT with INR 15.70 H INR 1.33 H PTT (Actin FS) 72.0 H Sodium Potassium Chloride Carbon Dioxide Anion Gap BUN Creatinine Est GFR (CKD-EPI)AfAm Est GFR (CKD-EPI)NonAf POC Glucometer 99 Random Glucose Hemoglobin A1c % 6.6 H Lactic Acid Calcium Total Bilirubin AST ALT Alkaline Phosphatase Creatine Kinase Troponin I B-Natriuretic Peptide Total Protein Albumin Triglycerides Cholesterol Total LDL Cholesterol HDL Cholesterol Urine Color Urine Appearance Urine pH Ur Specific [place] Urine Protein Urine Glucose (UA) Urine Ketones Urine Blood Urine Nitrite Urine Bilirubin Urine Urobilinogen Ur Leukocyte Esterase Urine WBC (Auto) Urine RBC (Auto) Urine Casts (Auto) U Epithel Cells (Auto) Urine Bacteria (Auto) 11/22/18 11/22/18 11/22/18 06:26 06:26 06:26 WBC 10.0 RBC 3.80 Hgb 10.7 Hct 32.8 MCV 86.4 MCH 28.2 MCHC 32.6 RDW 16.1 H Plt Count 312 MPV 8.0 Absolute Neuts (auto) Neutrophils % Lymphocytes % Monocytes % Eosinophils % Basophils % Nucleated RBC % PT with INR 14.60 H INR 1.23 H PTT (Actin FS) 63.3 H Sodium 140 Potassium 4.1 Chloride 110 H Carbon Dioxide 19 L Anion Gap 11 BUN 59.1 H Creatinine 1.8 H Est GFR (CKD-EPI)AfAm 29.03 Est GFR (CKD-EPI)NonAf 25.04 POC Glucometer Random Glucose 91 Hemoglobin A1c % Lactic Acid Calcium 7.9 L Total Bilirubin 0.4 AST 27 ALT 23 Alkaline Phosphatase 93 Creatine Kinase Troponin I B-Natriuretic Peptide Total Protein 6.0 L Albumin 2.3 L Triglycerides Cholesterol Total LDL Cholesterol HDL Cholesterol Urine Color Urine Appearance Urine pH Ur Specific [place] Urine Protein Urine Glucose (UA) Urine Ketones Urine Blood Urine Nitrite Urine Bilirubin Urine Urobilinogen Ur Leukocyte Esterase Urine WBC (Auto) Urine RBC (Auto) Urine Casts (Auto) U Epithel Cells (Auto) Urine Bacteria (Auto) 11/22/18 11/23/18 11/23/18 17:02 06:36 07:06 WBC 7.8 RBC 3.80 Hgb 10.7 Hct 32.5 MCV 85.5 MCH 28.1 MCHC 32.9 RDW 16.3 H Plt Count 369 MPV 8.3 Absolute Neuts (auto) 6.5 Neutrophils % 83.9 H Lymphocytes % 8.1 D Monocytes % 5.9 Eosinophils % 1.5 D Basophils % 0.6 Nucleated RBC % 0 PT with INR INR PTT (Actin FS) Sodium Potassium Chloride Carbon Dioxide Anion Gap BUN Creatinine Est GFR (CKD-EPI)AfAm Est GFR (CKD-EPI)NonAf POC Glucometer 271 105 Random Glucose Hemoglobin A1c % Lactic Acid Calcium Total Bilirubin AST ALT Alkaline Phosphatase Creatine Kinase Troponin I B-Natriuretic Peptide Total Protein Albumin Triglycerides Cholesterol Total LDL Cholesterol HDL Cholesterol Urine Color Urine Appearance Urine pH Ur Specific [place] Urine Protein Urine Glucose (UA) Urine Ketones Urine Blood Urine Nitrite Urine Bilirubin Urine Urobilinogen Ur Leukocyte Esterase Urine WBC (Auto) Urine RBC (Auto) Urine Casts (Auto) U Epithel Cells (Auto) Urine Bacteria (Auto) 11/23/18 11/23/18 11/24/18 07:06 16:57 05:24 WBC 8.1 RBC 3.91 Hgb 10.8 Hct 34.1 MCV 87.3 MCH 27.5 MCHC 31.6 L RDW 16.3 H Plt Count 351 MPV 8.7 Absolute Neuts (auto) 6.5 Neutrophils % 80.5 Lymphocytes % 9.4 Monocytes % 8.4 Eosinophils % 1.1 Basophils % 0.6 Nucleated RBC % PT with INR INR PTT (Actin FS) Sodium 141 Potassium 4.3 Chloride 110 H Carbon Dioxide 20 L Anion Gap 10 BUN 52.5 H Creatinine 1.6 H Est GFR (CKD-EPI)AfAm 33.47 Est GFR (CKD-EPI)NonAf 28.88 POC Glucometer 282 Random Glucose 95 Hemoglobin A1c % Lactic Acid Calcium 8.5 Total Bilirubin AST ALT Alkaline Phosphatase Creatine Kinase Troponin I B-Natriuretic Peptide Total Protein Albumin Triglycerides Cholesterol Total LDL Cholesterol HDL Cholesterol Urine Color Urine Appearance Urine pH Ur Specific [place] Urine Protein Urine Glucose (UA) Urine Ketones Urine Blood Urine Nitrite Urine Bilirubin Urine Urobilinogen Ur Leukocyte Esterase Urine WBC (Auto) Urine RBC (Auto) Urine Casts (Auto) U Epithel Cells (Auto) Urine Bacteria (Auto) 11/24/18 11/24/18 11/24/18 05:24 05:38 17:39 WBC RBC Hgb Hct MCV MCH MCHC RDW Plt Count MPV Absolute Neuts (auto) Neutrophils % Lymphocytes % Monocytes % Eosinophils % Basophils % Nucleated RBC % PT with INR INR PTT (Actin FS) Sodium 138 Potassium 4.9 Chloride 108 H Carbon Dioxide 22 Anion Gap 8 BUN 45.5 H Creatinine 1.4 H Est GFR (CKD-EPI)AfAm 39.33 Est GFR (CKD-EPI)NonAf 33.94 POC Glucometer 147 192 Random Glucose 152 H Hemoglobin A1c % Lactic Acid Calcium 8.7 Total Bilirubin AST ALT Alkaline Phosphatase Creatine Kinase Troponin I 0.25 H B-Natriuretic Peptide Total Protein Albumin Triglycerides Cholesterol Total LDL Cholesterol HDL Cholesterol Urine Color Urine Appearance Urine pH Ur Specific [place] Urine Protein Urine Glucose (UA) Urine Ketones Urine Blood Urine Nitrite Urine Bilirubin Urine Urobilinogen Ur Leukocyte Esterase Urine WBC (Auto) Urine RBC (Auto) Urine Casts (Auto) U Epithel Cells (Auto) Urine Bacteria (Auto) 11/25/18 11/25/18 11/28/18 05:38 16:51 21:55 WBC RBC Hgb Hct MCV MCH MCHC RDW Plt Count MPV Absolute Neuts (auto) Neutrophils % Lymphocytes % Monocytes % Eosinophils % Basophils % Nucleated RBC % PT with INR INR PTT (Actin FS) Sodium Potassium Chloride Carbon Dioxide Anion Gap BUN Creatinine Est GFR (CKD-EPI)AfAm Est GFR (CKD-EPI)NonAf POC Glucometer 104 213 178 Random Glucose Hemoglobin A1c % Lactic Acid Calcium Total Bilirubin AST ALT Alkaline Phosphatase Creatine Kinase Troponin I B-Natriuretic Peptide Total Protein Albumin Triglycerides Cholesterol Total LDL Cholesterol HDL Cholesterol Urine Color Urine Appearance Urine pH Ur Specific [place] Urine Protein Urine Glucose (UA) Urine Ketones Urine Blood Urine Nitrite Urine Bilirubin Urine Urobilinogen Ur Leukocyte Esterase Urine WBC (Auto) Urine RBC (Auto) Urine Casts (Auto) U Epithel Cells (Auto) Urine Bacteria (Auto) 11/29/18 11/29/18 11/29/18 06:35 11:16 13:35 WBC RBC Hgb Hct MCV MCH MCHC RDW Plt Count MPV Absolute Neuts (auto) Neutrophils % Lymphocytes % Monocytes % Eosinophils % Basophils % Nucleated RBC % PT with INR INR PTT (Actin FS) Sodium Potassium Chloride Carbon Dioxide Anion Gap BUN Creatinine Est GFR (CKD-EPI)AfAm Est GFR (CKD-EPI)NonAf POC Glucometer 143 187 Random Glucose Hemoglobin A1c % Lactic Acid Calcium Total Bilirubin AST ALT Alkaline Phosphatase Creatine Kinase 32 Troponin I B-Natriuretic Peptide Total Protein Albumin Triglycerides 199 H Cholesterol 175 Total LDL Cholesterol 107 H HDL Cholesterol 39 L Urine Color Urine Appearance Urine pH Ur Specific [place] Urine Protein Urine Glucose (UA) Urine Ketones Urine Blood Urine Nitrite Urine Bilirubin Urine Urobilinogen Ur Leukocyte Esterase Urine WBC (Auto) Urine RBC (Auto) Urine Casts (Auto) U Epithel Cells (Auto) Urine Bacteria (Auto) 11/29/18 18:28 WBC RBC Hgb Hct MCV MCH MCHC RDW Plt Count MPV Absolute Neuts (auto) Neutrophils % Lymphocytes % Monocytes % Eosinophils % Basophils % Nucleated RBC % PT with INR INR PTT (Actin FS) Sodium Potassium Chloride Carbon Dioxide Anion Gap BUN Creatinine Est GFR (CKD-EPI)AfAm Est GFR (CKD-EPI)NonAf POC Glucometer 210 Random Glucose Hemoglobin A1c % Lactic Acid Calcium Total Bilirubin AST ALT Alkaline Phosphatase Creatine Kinase Troponin I B-Natriuretic Peptide Total Protein Albumin Triglycerides Cholesterol Total LDL Cholesterol HDL Cholesterol Urine Color Urine Appearance Urine pH Ur Specific [place] Urine Protein Urine Glucose (UA) Urine Ketones Urine Blood Urine Nitrite Urine Bilirubin Urine Urobilinogen Ur Leukocyte Esterase Urine WBC (Auto) Urine RBC (Auto) Urine Casts (Auto) U Epithel Cells (Auto) Urine Bacteria (Auto) Active Medications Generic Name Dose Route Start Last Admin Trade Name Freq PRN Reason Stop Dose Admin Acetaminophen 650 mg 11/26/18 13:58 11/28/18 21:57 Tylenol - PO 650 mg Q4H PRN Administration PAIN LEVEL 6-10 Aspirin 81 mg 11/27/18 10:00 11/29/18 11:13 Asa - PO 81 mg DAILY ERNIE Administration Clopidogrel Bisulfate 75 mg 11/29/18 11:45 11/29/18 13:58 Plavix - PO 75 mg DAILY ERNIE Administration Heparin Sodium (Porcine) 5,000 unit 11/26/18 14:00 11/29/18 13:59 Heparin - SQ 5,000 unit TID ERNIE Administration Insulin Aspart 1 vial 11/27/18 16:30 11/29/18 18:29 Novolog Vial Sliding Scale - SQ 4 units ACHS ERNIE Administration Protocol Levothyroxine Sodium 75 mcg 11/27/18 07:00 11/29/18 06:34 Synthroid - PO 75 mcg DAILY@0700 ERNIE Administration Metoprolol Tartrate 25 mg 11/28/18 22:00 11/29/18 11:13 Lopressor - PO 25 mg BID ERNIE Administration Ondansetron HCl 4 mg 11/26/18 13:58 11/27/18 13:19 Zofran Injection IVPUSH 4 mg Q8H PRN Administration NAUSEA AND/OR VOMITING Pantoprazole Sodium 40 mg 11/27/18 10:00 11/29/18 11:13 Protonix - PO 40 mg DAILY ERNIE Administration Prednisone 10 mg 11/27/18 10:00 11/29/18 13:58 Deltasone - PO 10 mg DAILY ERNIE Administration ASSESSMENT/PLAN: 87F w/ HTN, HLD, DM, CKD, SLE, hypothyroidism, pulmonary [place] of [place]d pain and [place] labwork showing elevated troponins. Tropnonis trended down, heparin gtt was started but stopped. Code sanz 11/26/18, called for concern of AMS, nonverbal response and gaze deviated to the right. 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 --R/O Cardioembolic Source HOWEVER the multiple sites of (Bilateral) ischemia are most consistent with Basilar artery stenosis/occlusion --Agree with prior Fosphenytoin load 1 gram equivalent IVP x 1 --Admit to telemetry floor for Holter monitor, ECHO --Repeat CT of head in AM (C-) particularly to view evolution of ischemic changes and especially to R/O hemorrhagic conversion of Right parietal CVA. --Prognosis of Basilar artery occlusion is grim --ASA + plavix -Cardiology(Jonna) consulted --recommends against YENI as it would be low-yield given that TTE was normal, pt might not tolerate procedure, recommends discussion of GOC with family -will consider outpatient Holter monitor -S&S eval -- ground/thin liquids, magic cup, ensure pudding, Ensure, Elevate HOB during feed #abd pain >Abd MRI(11/25/18): limited due to pt motion artifact. Pancreas w/ parenchymal cysts. Thickening of gastric fundus -continue to monitor w/ daily abd exams #UTI >UCX(11/21/18): VRE, 50-60k CFU -holding abx for now d/t low CFU count #urinary retention -dc flomax d/t hypotension #JACIEL on CKD -mIVF -- dc'd -encourage PO intake #SLE -Rheum consult(Dr Parks): [place] -cw prednisone #DM -dc'd home glyburide -cw ISS #hypothyroidism -cw levothyroxine #FEN -dysphagia diet( ground/thin liquids, magic cup, ensure pudding, Ensure) #DVT prophylaxis -subcutaneous heparin Visit type - Emergency Visit Emergency Visit: No - New Patient This patient is new to me today: No - Critical Care Critical Care patient: No ATTENDING PHYSICIAN STATEMENT I saw and evaluated the patient. I reviewed the resident's note and discussed the case with the resident. I agree with the resident's findings and plan as documented. SUBJECTIVE: OBJECTIVE: ASSESSMENT AND PLAN:
[2018-11-30] MEDS: HEPARIN NA (PORCINE) 5,000 UNITS/ML 1ML VIAL SQ SCH (07:02)
[2018-11-30] MEDS: LEVOTHYROXINE NA 75 MCG TABLET (FP) PO SCH (07:04)
[2018-11-30] MEDS: INSULIN SLIDING SCALE (NOVOLOG) 1 VIAL SQ SCH (07:13)
[2018-11-30] MEDS: ASPIRIN 81 MG CHEWABLE TABLETS PO SCH (09:47)
[2018-11-30] MEDS: METOPROLOL TARTRATE 25 MG TABLET (FP) PO SCH (09:47)
[2018-11-30] MEDS: predniSONE 10 MG TABLET (UD) PO SCH (09:47)
[2018-11-30] MEDS: PANTOPRAZOLE 40 MG TABLET (FP) PO SCH (09:48)
[2018-11-30] MEDS: CLOPIDOGREL BISULFATE 75 MG TABLET (FP) PO SCH (09:50)
[2018-11-30 09:56] VITALS: BP 171/67; PULSE 78; TEMP 98.5
== END 2018-11-30 12:37 | DRG 280 ==
LOC: JER 10:14 → JERBED 13:24 → J4S 16:22 → J5S 11-25 21:26 → J4S 11-26 10:47 → JERBED 11-30 03:34 → J2W 11-30 03:36
PROVIDERS: ADMIT Family Medicine; ATTEND Hospitalist
DX: I21.A1 Myocardial infarction type 2 (principal); I63.9 Cerebral infarction, unspecified; J96.01 Acute respiratory failure with hypoxia; E43 Unspecified severe protein-calorie malnutrition; N17.9 Acute kidney failure, unspecified; N39.0 Urinary tract infection, site not specified; J90 Pleural effusion, not elsewhere classified; L93.0 Discoid lupus erythematosus; E78.5 Hyperlipidemia, unspecified; E03.9 Hypothyroidism, unspecified; K21.9 Gastro-esophageal reflux disease without esophagitis; M54.5 Low back pain; M71.9 Bursopathy, unspecified; N26.1 Atrophy of kidney (terminal); I12.9 Hypertensive chronic kidney disease with stage 1 through stage 4 chronic kidney disease, or unspecified chronic kidney disease; E11.22 Type 2 diabetes mellitus with diabetic chronic kidney disease; N18.9 Chronic kidney disease, unspecified; Z68.23 Body mass index [BMI] 23.0-23.9, adult
CPT/HCPCS: 36415; 36600; 70450-TC; 70496-TC; 70498-TC; 71045-TC-FY; 72050-TC-FY; 72125-TC; 74181-TC; 74182-TC; 80048; 80053; 80061; 81003; 82150; 82550; 82803; 82962; 83036; 83605; 83690; 83721; 83880; 84484; 85025; 85027; 85610; 85730; 86850; 86900; 86901; 87040; 87086; 87186; 90670; 93005; 93010; 93306-TC; 93880-TC; 97116-GP; 97162-GP; 99284-25; A9579; G0008; G0009; J0131; J1644; Q2036; Q9967

== ENCOUNTER 2018-12-05 22:59 | Inpatient (IN) | payer OTHER ==
--- NOTE | 2018-12-05 23:43 | PDOC ---
History of Present Illness - General Stated Complaint: HIGH BLOOD PRESSURE Time Seen by Provider: 12/05/18 23:37 History Source: Patient, Family Exam Limitations: Clinical Condition - History of Present Illness Initial Comments: Ragini Cotton is an 87 yo F w a pmh of CAD, NC, CVA, HTN, HCL, GERD, Lupus, chronic back pain, respiratory failure, hypothyroidism, and diabetes who was recently in this hospital with abdominal pain and had a cholecystectomy. She now presents with abdominal pain, nausea, and vomiting from [facility]. The patient is not able to provide much history. Last time she was here she had elevated heart enzymes, confusion and a stroke. The son is here at bedside who confirms that his mother did indeed have generalized upper and left abdominal pain but she cannot provde many details. PCP: [place]ina Cards: Dr. Coyle Neuro: Dr. Vazquez Rheum: Dr. Parks PSH: Recent cholecystectomy Social Hx: [facility] Allergies: NKA, NKDA Past History - Past Medical History Allergies/Adverse Reactions: Allergies Allergy/AdvReac Type Severity Reaction Status Date / Time No Known Allergies Allergy Verified 12/06/18 03:27 Home Medications: Ambulatory Orders Aspirin Coated [Ecotrin -] 81 mg PO DAILY tablet.ec 09/26/18 Furosemide [Lasix -] 20 mg PO ASDIR 11/05/18 Acetaminophen 650 mg PO Q6H PRN 11/21/18 Gabapentin 200 mg PO HS 11/21/18 Gabapentin [Neurontin -] 100 mg PO BID 11/21/18 Levothyroxine [Synthroid -] 75 mcg PO DAILY@0700 11/21/18 Lidocaine 5% Patch [Lidoderm -] 1 patch TP DAILY 11/21/18 Pantoprazole Sodium [Protonix] 40 mg PO DAILY 11/21/18 Polyethylene Glycol 3350 17 gm PO DAILY 11/21/18 Tamsulosin HCl 0.4 mg PO DAILY 11/21/18 Clopidogrel Bisulfate [Plavix -] 75 mg PO DAILY 30 Days #30 tablet 11/29/18 Insulin Sliding Scale [Novolog Vial Sliding Scale -] 1 vial SQ ACHS units 11/29 Metoprolol Tartrate [Lopressor -] 25 mg PO BID 30 Days #60 tablet 11/29/18 Rosuvastatin Calcium [Crestor] 20 mg PO DAILY #30 tablet 11/29/18 predniSONE [Deltasone -] 10 mg PO DAILY 30 Days #30 tablet 11/29/18 Anemia: Yes Asthma: No Cancer: No Cardiac Disorders: Yes (heart murmur) CVA: No ("mini stroke one time") COPD: No CHF: Yes Dementia: No Diabetes: Yes (niddm) GI Disorders: Yes (GERD) Disorders: Yes (incontinent at times) HTN: Yes Hypercholesterolemia: Yes Liver Disease: No Seizures: No Thyroid Disease: Yes (Hypothyroidism) - Surgical History Abdominal Surgery: No Appendectomy: No Cardiac Surgery: No Cholecystectomy: Yes Lung Surgery: No Neurologic Surgery: No Orthopedic Surgery: Yes (Left knee Replacement) - Psycho Social/Smoking Cessation Hx Smoking History: Unknown if ever smoked (spoke daughter will dicuss dnr dni w family) Have you smoked in the past 12 months: No If you are a former smoker, when did you quit?: 25 years ago 'Breaking Loose' booklet given: 09/22/18 Hx Alcohol Use: No Drug/Substance Use Hx: No Substance Use Type: None Hx Substance Use Treatment: No Review of Systems - Review of Systems Able to Perform ROS?: No (Patient non-verbal) *Physical Exam - Physical Exam Comments: GENERAL: Elderly, frail appearing, skinny, cachectic, Not well nourished. Looks uncomfortable. HEENT: Normocephalic, atraumatic. PERRL, EOM intact. CARDIOVASCULAR: Normal S1, S2. Regular rate and rhythm. PULMONARY: bibasilar crackles. No wheezing or rhonchi. ABDOMEN: There is generalized abdominal discomfort. No rebound or guarding. EXTREMITIES: contracted and limited ROM in all four extremities. No gross deformities. SKIN: Warm, dry. No rash NEUROLOGICAL: Responds to painful stimuli. PERRL. ED Treatment Course - LABORATORY CBC & Chemistry Diagram: 12/06/18 00:38 12/06/18 00:38 Medical Decision Making - Medical Decision Making Ragini Cotton is an 87 yo F w a pmh of CAD, NC, CVA, HTN, HCL, GERD, Lupus, chronic back pain, respiratory failure, hypothyroidism, and diabetes who was recently in this hospital with abdominal pain and had a cholecystectomy. She now presents with abdominal pain, nausea, and vomiting from [facility]. The patient is not able to provide much history. Last time she was here she had elevated heart enzymes, confusion and a stroke. The son is here at bedside who confirms that his mother did indeed have generalized upper and left abdominal pain but she cannot provde many details. Vital Signs Temp Pulse Resp BP Pulse Ox 98.4 F 96 H 25 H 171/98 H 100 12/05/18 23:10 12/05/18 23:10 12/05/18 23:10 12/05/18 23:10 12/05/18 23:10 DDx is large but includes abdominal pathology most likely, will also do a cardio workup. Plan: Labs, urine, CT, analgesia, anti-emetics, iv hydration, anticipate admission EKG #1: NS rate of 94, narrow complexes, LAD, TWI in lead 3, NO St elevations or depressions, non-specific T wave abnormality Labs: Elevated Troponin at 7. Leukocytosis of 19. Lactic acidosis. - Patient has no current chest pain. EKG #2: NS rate of 89, narrow complexes, LAD, no hypertrophy, no ST elevations or depressions, no Q waves 2:10 am: Cardiac Consult - Dr. Coyle: [facility] Barbosa [facility] and the answering service said he will call us back. - Spoke with Dr. Barbosa who agrees that this troponin is probably representing a heart attack which occured in the past few days but is not presently happening. He agrees with aspirin for the time being and admission to telemetry. Disposition: Admit to Telemetry for NSTEMI CTAP: Significant amount of feces, no other acute pathology. - I spoke with Dr. kelley about the patient - Plan is to repeat lactic acid, if lactic is going up patient will get upgraded to ICU - If lactic is same or downtrending will keep admission to floors/telemetry Discharge - Discharge Information Problems reviewed: Yes Clinical Impression/Diagnosis: NSTEMI (non-ST elevated myocardial infarction) Nausea and vomiting Qualifiers: Vomiting type: unspecified Vomiting Intractability: unspecified Qualified Code( s): R11.2 - Nausea with vomiting, unspecified Abdominal pain Qualifiers: Abdominal location: unspecified location Qualified Code(s): R10.9 - Unspecified abdominal pain Condition: Guarded - Admission Yes - Follow up/Referral - Patient Discharge Instructions - Post Discharge Activity
[2018-12-05] MEDS ORDERED: SODIUM CHLORIDE 1,000 ML IV STA (23:45)
[2018-12-05] MEDS ORDERED: FAMOTIDINE 20 MG/50 ML IVPB 20 MG/50 ML MG IVPB ONE (23:45)
[2018-12-05] MEDS ORDERED: ACETAMINOPHEN 1000 MG/100 ML VIAL (NON FORMULARY) IVPB ONE (23:45)
[2018-12-05] MEDS ORDERED: ONDANSETRON 4 MG/2 ML VIAL IVPUSH ONE (23:46)
[2018-12-06] MEDS ORDERED: ONDANSETRON 4 MG/2 ML VIAL ONE (00:49)
[2018-12-06] MEDS ORDERED: ACETAMINOPHEN INJECTION 100 ML IVPB ONE (00:49)
[2018-12-06 00:58] LABS: BASO % 0.4 % (0-2.0); EOS % 0.1 % (0-4.5); HEMATOCRIT 39.8 % (32.4-45.2); HEMOGLOBIN 12.5 GM/dL (10.7-15.3); MCH 27.2 pg (25.7-33.7); MCHC 31.5 g/dl (32.0-36.0); MEAN CELL VOLUME 86.3 fl (80-96); MEAN PLT VOLUME 8.7 fl (7.5-11.1); MONO % 5.9 % (3.8-10.2); NEUT % 88.6 % (42.8-82.8); PLATELET COUNT 293 K/MM3 (134-434); RBC 4.62 M/mm3 (3.60-5.2); WHITE BLOOD COUNT 19.5 K/mm3 (4.0-10.0)
--- NOTE | 2018-12-06 01:06 | PDOC ---
Attending Attestation - Resident Resident Name: Todd Camargo - ED Attending Attestation I have performed the following: I have examined & evaluated the patient, The case was reviewed & discussed with the resident, I agree w/resident's findings & plan, Exceptions are as noted - HPI HPI: 12/06/18 04:55 87F pmh DM, HTN, HLD, CAD s/p [place], s/p lap arlene 09/2018, lupus, gerd, chronic lbp , hypothyroidism sent from CT for abdominal px, n/v nbnb. Pt is a poor historian. - Physicial Exam PE: 12/06/18 04:58 Agree with exam as documented by resident - Medical Decision Making 12/06/18 04:58 Pt with complicated PMH, many risk factors here with abd px n/v consider infection, acute intra-abd pathology, consider atypical presentation of acs f/u labs, ekg, cxr, ct ap dispo per clinical course ekg non-ischemic trop 7.72 Lactic acid 2.6 +uti, start abx, ivf ct read pending, no acute pathology on my review cardiology consulted, asa given admit for further care
[2018-12-06] MEDS ORDERED: FAMOTIDINE 20 MG/50 ML IVPB 20 MG/50 ML MG IVPB ONE (01:08)
[2018-12-06 01:22] LABS: INR 0.97 (0.83-1.09); PROTHROMBIN TIME (PATIENT) 11.4 SEC (9.7-13.0)
[2018-12-06 01:29] LABS: BILIRUBIN,TOTAL 0.4 mg/dL (0.2-1); BLOOD UREA NITROGEN 59.5 mg/dL (7-18); CALCIUM 8.3 mg/dL (8.5-10.1); CREATININE 1.8 mg/dL (0.55-1.3); POTASSIUM 4.7 mmol/L (3.5-5.1); TOT PROT 6.8 g/dl (6.4-8.2)
[2018-12-06 01:37] LABS: MAGNESIUM 1.8 mg/dL (1.8-2.4); PHOSPHOROUS 4.6 mg/dL (2.5-4.9)
[2018-12-06] MEDS ORDERED: ASPIRIN 81 MG CHEWABLE TABLETS PO ONE (01:40)
[2018-12-06] MEDS ORDERED: ASPIRIN 81 MG CHEWABLE TABLETS ONE (01:47)
[2018-12-06] MEDS ORDERED: ASPIRIN 300 MG SUPP.RECT PR ONE (01:53)
[2018-12-06 04:11] LABS: EPI CELLS 1.9 /HPF (0-5/HPF); HYALINE CASTS 0 /lpf (0-8); URINE APPEARANCE TURBID; URINE BACTERIA 6328.7 /hpf (NEGATIVE); URINE BILIRUBIN NEGATIVE (NEGATIVE); URINE COLOR YELLOW; URINE GLUCOSE (UA) NEGATIVE (NEGATIVE); URINE KETONE NEGATIVE (NEGATIVE); URINE LEUK ESTERASE 2+ (NEGATIVE); URINE NITRITE NEGATIVE (NEGATIVE); URINE PROTEIN 3+ (NEGATIVE); URINE RBC 2 /hpf (0-4); URINE UROBILINOGEN 0.2 mg/dL (0.2-1.0); URINE WBC 216 /hpf (0-5)
[2018-12-06] MEDS ORDERED: CEFTRIAXONE 1,000 MG in DEXTROSE 5%-WATER - 50 ML IVPB ONE (04:50)
[2018-12-06] MEDS ORDERED: CEFTRIAXONE 1 GM/50 ML BAG ONE (05:08)
[2018-12-06] MEDS ORDERED: LINEZOLID 600 MG PREMIX BAG 600 MG/300 ML BAG IVPB ONE (06:43)
[2018-12-06] MEDS ORDERED: MAGNESIUM SULF 50% (8.12 MEQ/2 ML-1 GM VIAL) IVPB ONE (07:00)
[2018-12-06] MEDS ORDERED: METOPROLOL TARTRATE 5 MG/5 ML VIAL IVPUSH ONE (07:06)
[2018-12-06] MEDS ORDERED: METOPROLOL TARTRATE 5 MG/5 ML VIAL ONE (07:12)
[2018-12-06 07:29] LABS: ARTERIAL BLOOD GAS BASE EXCESS 0.4 meq/l (-2-2); ARTERIAL BLOOD GAS PCO2 33.1 mmHg (35-45); ARTERIAL BLOOD GAS PO2 63.7 mmHg (80-100); ARTERIAL BLOOD GAS pH 7.46 (7.35-7.45)
[2018-12-06 07:35] LABS: ALLENS TEST POSITIVE
[2018-12-06] MEDS ORDERED: MAGNESIUM 1GM/D5W - 1 GM/100 ML IVPB IVPB ONE ×2 (07:44→08:44)
--- NOTE | 2018-12-06 08:07 | HP ---
CHIEF COMPLAINT: Abdominal Pain PCP: Cierra PAULINO (Dr. Auguste) HISTORY OF PRESENT ILLNESS: Thank you Dr. Auguste for allowing us to take part in the ongoing care of your patient. Overall, patient is a poor historian, so history is primarily obtained from what she could provide as well as from other sources including the ER. She presents for abdominal pain, but is found to have other significant laboratory abnormalities that indicate critical illness. Patient is a 87-year-old frail female who is a resident [facility] who presents with abdominal pain, the pain is diffuse, difficult to localize, not made better or worse with anything, she has not seen any other providers for this. She has a history of recent cholecystectomy, elevated troponin with CVA seen by Dr. 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 Furthermore, she has a complex medical history involving lupus, hypothyroidism, diabetes, multiple UTIs with multidrug resistant organisms seen by infectious disease in the past with recent culture positive for vancomycin-resistant enterococcus. Today her troponins found to be 7. It did slightly downtrend, but overall, the patient was stated by the emergency room to have no changes in her EKGs. I am still pending review of these studies at the current time as they were not currently available, I will addend the note when they are made available to review. Furthermore, the patient is noted to have had a recent echocardiogram with normal left ventricular ejection from the peres and normal telemetry during the last admission. She has no recent stenting, she has no history of coronary artery disease documented in her chart. Her last admission she was started on Plavix, 20 of Crestor, twice daily metoprolol tartrate. She is on 10 daily of prednisone for her lupus PAST MEDICAL HISTORY: Per HPI PAST SURGICAL HISTORY: No procedures in the interim between discharge and admission, past surgical history reviewed. Social History: Patient has no history of alcohol, drug, or tobacco abuse. Family history was asked and is judged to be noncontributory in this 87-year- old patient. Reviewed all past described family history in the chart and she did not indicated that were sending further, furthermore, it is notable that she denies any history of sudden cardiac in any first-degree relatives. 10 system review of systems was completed and is negative aside from history of present illness Allergies No Known Allergies Allergy (Verified 12/06/18 03:27) HOME MEDICATIONS: Home Medications Medication Instructions Recorded Aspirin Coated [Ecotrin -] 81 mg PO DAILY tablet.ec 09/26/18 Furosemide [Lasix -] 20 mg PO ASDIR 11/05/18 Acetaminophen 650 mg PO Q6H PRN 11/21/18 Gabapentin 200 mg PO HS 11/21/18 Gabapentin [Neurontin -] 100 mg PO BID 11/21/18 Levothyroxine [Synthroid -] 75 mcg PO DAILY@0700 11/21/18 Lidocaine 5% Patch [Lidoderm -] 1 patch TP DAILY 11/21/18 Pantoprazole Sodium [Protonix] 40 mg PO DAILY 11/21/18 Polyethylene Glycol 3350 17 gm PO DAILY 11/21/18 Tamsulosin HCl 0.4 mg PO DAILY 11/21/18 Clopidogrel Bisulfate [Plavix -] 75 mg PO DAILY 30 Days #30 tablet 11/29/18 Insulin Sliding Scale [Novolog 1 vial SQ ACHS units 11/29/18 Vial Sliding Scale -] Metoprolol Tartrate [Lopressor -] 25 mg PO BID 30 Days #60 tablet 11/29/18 Rosuvastatin Calcium [Crestor] 20 mg PO DAILY #30 tablet 11/29/18 predniSONE [Deltasone -] 10 mg PO DAILY 30 Days #30 tablet 11/29/18 PHYSICAL EXAMINATION Vital Signs - 24 hr 12/05/18 12/06/18 12/06/18 23:10 06:44 07:05 Temperature 98.4 F Pulse Rate 96 H Pulse Rate [ 88 Left Apical] Respiratory 25 H 19 Rate Blood Pressure 171/98 H 199/106 H Blood Pressure 200/98 H [Right Arm] O2 Sat by Pulse 100 100 Oximetry (%) VS, labs, imaging reviewed NAD, AAO, resting comfortably in bed. RRR s1/2 no mgr Normal muscle tone, moves all 5 extremities with normal apparent strength Neck is supple, trachea midline, no sunshine LN Lungs CTAB with sym expansion NT ND +BS no sunshine organomegaly CN2-12 wnl; no FND NC AT EOMI PERRLA Normal mood, appropriate behavior, euthymic affect No skin breakdown or rashes noted Laboratory Results - last 24 hr 12/06/18 12/06/18 12/06/18 00:38 00:38 00:38 WBC 19.5 H RBC 4.62 Hgb 12.5 Hct 39.8 D MCV 86.3 MCH 27.2 MCHC 31.5 L RDW 19.0 H Plt Count 293 D MPV 8.7 Absolute Neuts (auto) 17.3 H Neutrophils % 88.6 H Lymphocytes % 5.0 L D Monocytes % 5.9 Eosinophils % 0.1 D Basophils % 0.4 Nucleated RBC % 0 PT with INR INR Anticoagulation Therapy Puncture Site ABG pH ABG pCO2 at Pt Temp ABG pO2 at Pt Temp ABG HCO3 ABG O2 Sat (Measured) ABG O2 Content ABG Base Excess Dov Test O2 Delivery Device Oxygen Flow Rate Vent Mode Vent Rate Mechanical Rate Pressure Support Vent Sodium 144 Potassium 4.7 Chloride 107 Carbon Dioxide 26 Anion Gap 11 BUN 59.5 H Creatinine 1.8 H Est GFR (CKD-EPI)AfAm 29.03 Est GFR (CKD-EPI)NonAf 25.04 Random Glucose 262 H Lactic Acid 2.6 H* Calcium 8.3 L Phosphorus Magnesium Total Bilirubin 0.4 AST 45 H ALT 24 Alkaline Phosphatase 98 Creatine Kinase Troponin I Total Protein 6.8 Albumin 3.0 L Lipase Urine Color Urine Appearance Urine pH Ur Specific [place] Urine Protein Urine Glucose (UA) Urine Ketones Urine Blood Urine Nitrite Urine Bilirubin Urine Urobilinogen Ur Leukocyte Esterase Urine WBC (Auto) Urine RBC (Auto) Urine Casts (Auto) U Epithel Cells (Auto) Urine Bacteria (Auto) 12/06/18 12/06/18 12/06/18 00:38 00:38 03:15 WBC RBC Hgb Hct MCV MCH MCHC RDW Plt Count MPV Absolute Neuts (auto) Neutrophils % Lymphocytes % Monocytes % Eosinophils % Basophils % Nucleated RBC % PT with INR 11.40 INR 0.97 Anticoagulation Therapy Puncture Site ABG pH ABG pCO2 at Pt Temp ABG pO2 at Pt Temp ABG HCO3 ABG O2 Sat (Measured) ABG O2 Content ABG Base Excess Dov Test O2 Delivery Device Oxygen Flow Rate Vent Mode Vent Rate Mechanical Rate Pressure Support Vent Sodium Potassium Chloride Carbon Dioxide Anion Gap BUN Creatinine Est GFR (CKD-EPI)AfAm Est GFR (CKD-EPI)NonAf Random Glucose Lactic Acid Calcium Phosphorus 4.6 Magnesium 1.8 Total Bilirubin AST ALT Alkaline Phosphatase Creatine Kinase 94 Troponin I 7.72 H* Total Protein Albumin Lipase 154 Urine Color Yellow Urine Appearance Turbid Urine pH 5.0 Ur Specific [place] 1.018 Urine Protein 3+ H Urine Glucose (UA) Negative Urine Ketones Negative Urine Blood 1+ H Urine Nitrite Negative Urine Bilirubin Negative Urine Urobilinogen 0.2 Ur Leukocyte Esterase 2+ H Urine WBC (Auto) 216 Urine RBC (Auto) 2 Urine Casts (Auto) 0 U Epithel Cells (Auto) 1.9 Urine Bacteria (Auto) 6328.7 12/06/18 12/06/18 12/06/18 04:00 06:52 07:13 WBC RBC Hgb Hct MCV MCH MCHC RDW Plt Count MPV Absolute Neuts (auto) Neutrophils % Lymphocytes % Monocytes % Eosinophils % Basophils % Nucleated RBC % PT with INR INR Anticoagulation Therapy No Result Required. Puncture Site Right radial ABG pH 7.46 H ABG pCO2 at Pt Temp 33.1 L ABG pO2 at Pt Temp 63.7 L ABG HCO3 23.2 ABG O2 Sat (Measured) 93.0 L ABG O2 Content 15.7 ABG Base Excess 0.4 Dov Test Positive O2 Delivery Device No Result Required. Oxygen Flow Rate Yes Vent Mode No Result Required. Vent Rate No Result Required. Mechanical Rate No Result Required. Pressure Support Vent No Result Required. Sodium Potassium Chloride Carbon Dioxide Anion Gap BUN Creatinine Est GFR (CKD-EPI)AfAm Est GFR (CKD-EPI)NonAf Random Glucose Lactic Acid 1.9 Calcium Phosphorus Magnesium Total Bilirubin AST ALT Alkaline Phosphatase Creatine Kinase 109 Troponin I 7.50 H* Total Protein Albumin Lipase Urine Color Urine Appearance Urine pH Ur Specific [place] Urine Protein Urine Glucose (UA) Urine Ketones Urine Blood Urine Nitrite Urine Bilirubin Urine Urobilinogen Ur Leukocyte Esterase Urine WBC (Auto) Urine RBC (Auto) Urine Casts (Auto) U Epithel Cells (Auto) Urine Bacteria (Auto) ASSESSMENT/PLAN: Patient is an 87-year-old female presenting to the emergency room with abdominal pain found to have elevated troponins significantly suspicious for a NSTEMI. This was discussed with cardiology in the emergency room who suspect that the patient had a prior infarct given the downtrend of the troponin lack of evolving EKG changes. The patient was noted to have declining mental status over the past several hours in the emergency room and I spoke to the resident and we are now pending CT head and assessment for admission to the intensive care unit. Her problem list involves: Altered mental status likely secondary to toxic metabolic encephalopathy NSTEMI, type I versus type II, underlying likely coronary artery disease CKD 4 Chronic proteinuria Lupus on prednisone Chronic pleural effusions, pending BNP and echo. 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 We will obtain an echo to check for any new wall motion abnormalities, even given the recent echo given the potential for an acute cardiac event it would be worthwhile to note, further testing deferred to cardiology. Given her multiple comorbidities and high probability of deterioration she will require ICU monitoring. We will consult nephrology for her kidneys, infectious disease for the ongoing infectious process with multidrug-resistant organism, we will keep her n.p.o. Visit type - Emergency Visit Emergency Visit: Yes ED Registration Date: 12/06/18 Care time: The patient presented to the Emergency Department on the above date and was hospitalized for further evaluation of their emergent condition. - New Patient This patient is new to me today: Yes Date on this admission: 12/06/18 - Critical Care Critical Care patient: Yes Total Critical Care Time (in minutes): 60 Critical Care Statement: The care of this patient involved high complexity decision making to prevent further life threatening deterioration of the patient 's condition and/or to evaluate & treat vital organ system(s) failure or risk of failure.
[2018-12-06] MEDS ORDERED: hydrALAZINE HCL 20 MG/ML VIAL ONE (08:44)
--- NOTE | 2018-12-06 08:48 | CONSULT ---
Consultation: REQUESTING PROVIDER:Ed team CONSULT REQUEST: We have been asked to medically evaluate this patient for ( sepsis). HISTORY OF PRESENT ILLNESS:History is taking from chart as pt is altered and not able to provide story Ragini Cotton is an 87 yo F w a pmh of CAD, IA, CVA, HTN, HLD, GERD, Lupus, chronic back pain, respiratory failure, hypothyroidism, and diabetes who was recently in this hospital with abdominal pain and had a cholecystectomy. She now presents with abdominal pain, nausea, and vomiting from [facility]. The patient is not able to provide much history. Last time she was here she had elevated heart enzymes, confusion and a stroke. The daughter is here at bedside who confirms that his mother did indeed have generalized upper and left abdominal pain but she cannot provde many details. pt in ED whas found to have UTI and hypertensive emergency with BP 200 Systolic an worsening in her mental status. we were called to evaluate pt for hypertensive emergency. upon my arrival pt is very drowsy letharic , responds to painful stimuli, daughter at bed side , reports 2 days history of N/V/ Abdominal pain , loss of appetite and constipation. she said she is very interactive and this is not her base line. BP was 199 systolic with HR 85 , a febrile. trop was elevated up to 7 and cardiology was consulted by ED team recommend monitor and start ASA, Plavix and Statin Head Ct scan was one in ED shows acute/subacute stroke with midline shif and non communicating hydrocephalus called was placed to Dr Vazquez office and sabine braswell pt is DNR/DNI per daughter pcp Dr macdonald will confirm with her health care proxy PCP: Annabi Cards: Dr. Coyle Neuro: Dr. Vazquez Rheum: Dr. Parks PSH: Recent cholecystectomy, knee surgery Right Social Hx: [facility] of [facility] , denies smoking alcohol or drug use Allergies: NKDA REVIEW OF SYSTEMS: unable to obtain daughter reports constipation , abdominal pain , N/V x2 days , loss of appetite . PHYSICAL EXAMINATION Vital Signs - 24 hr 12/05/18 12/06/18 12/06/18 23:10 06:44 07:05 Temperature 98.4 F Pulse Rate 96 H Pulse Rate [ 88 Left Apical] Respiratory 25 H 19 Rate Blood Pressure 171/98 H 199/106 H Blood Pressure 200/98 H [Right Arm] O2 Sat by Pulse 100 100 Oximetry (%) GENERAL: lethargic, drowsy , responds to painful stimuli HEAD: NC.At left jaw deviation likley due to postion ENT: ANN MARIE, conjuctiva clear ENT: dry mucous membranes. NECK: supple no JVD, LUNGS: dcrease breath sounds at the bases, upper lobs CTA B/l HEART: Sinys tachy , no MRG ABDOMEN: Soft, not distended, normoactive bowel sounds, no guarding, LOWER EXTREMITIES: 2+ pulses, warm, well-perfused. No calf tenderness. No peripheral edema. NEUROLOGICAL:not able to assess , pt is sleepy lethargic , responds to painful stimuli, left jaw deviation likely positional, SKIN: Warm, dry, normal turgor, CBC, BMP 12/06/18 00:38 12/06/18 00:38 CXR today with no acute pathology head CT: Interval large area of decreased attenuation the left cerebellum and vermis with swelling, mass effect and effacement of the fourth ventricle that is also shifted towards the right likely representing an acute/subacute infarct without gross evidence of hemorrhage. Mass effect is obstructing/significantly effacing the fourth ventricle resulting in moderate to marked dilatation of the lateral third ventricles, noncommunicating hydrocephalus. Evolving prior infarcts described in the right cerebellum, left the posterior cerebral artery territory and right posterior frontal/parietal junction. No gross acute intracranial hemorrhage is identified. Close follow-up is recommended. Correlation with MRI is needed for further evaluation. ASSESSMENT/PLAN: 87 yo F w a pmh of CAD, IA, CVA, HTN, HLD, GERD, Lupus, chronic back pain, respiratory failure, hypothyroidism, and diabetes presnted to the hospital due to N/V/constipation and abdominal pain was found to have sepsis 2/2 UTI and Hypertensive emergency admitted to CIU for monitoring and treatment. Neuro: drowsy , lethargic but arousable , responds to verbal stimuli # Hypertensive emergency ,BP > 180/110 with AMS , R.O stroke # Acute metabolic encephalopathy due to HTN emergency vs sepsis vs dehydration vs electrolytes imbalance will R.O reversible causes , will treat sepsis and hydrate the pt # H.O CVA # Dehydration, on IV fluids * monitor BP in ICU * CT scan head with acute/subacute infarct without hemorrhage with mass effect obstructing fourth ventricle , non communicating hydrocephalus * goal OF BP 20 % drop in first 24 hours goal 170-180 systolic (giving one dose Hydrazine by Primary team) * neuro check Q 1 hr * TSH, Folic acid , b12 , RPR * consult neurology Dr Vazquez * consult neurosurgery Dr michael Smallwood * Speech and swallow eval * MRI in AM GI #Abdominal pain , N/V due to cystitis R.o gastritis on Zofran and PPI , NPO for now till more awake , CT A/P without contrast with no significant findings scan exept cusytitis ID # UTI R.P sepsis # Leuckocytosis # lactic acidosis , resolved with hydration * IV fuids NS @ 100 CC/hr * abx ceftriaxone and linezolid as history or VRE * cosnult ID * monitor BP and pulse oxy Cardiology # NSTEMI # Troponinemia # HTN #HLD # H.O IA * trop peaked , no EKG changes , * Echo last visit with normal EF and no wall motion abnormalities * cosnut cardiology * repeat Echo * cont plavix, ASA and statin high dose , no need for hep drip as of now per Ed who spoke with cardiology Nephro # [facility]EL [facility] due to pre renal azotemia due to sever dehydration and low oral intake * will repeat lab after hydration * Monitor urine out put * avoid nephrotoxic agents * CT scan A/P with possible cystitis Rheumatology #Lupus * cont prednisone home dose # FEN * NS 2 L bolus in Ed will give another liter and start maintenance @ 75 CC/hr * Monitor lytes * NPO for now # Proph * DVTS:SCDs, Hold chemoproph till R.O IC bleed * PPI 20 IV aily # dispo * Monitor in ICU # Goal of care : DNR/DNI per son and health care proxy need to be called again and confirm Dispo: We will continue to follow the patient. Thank you for this consultative opportunity. Visit type - Emergency Visit Emergency Visit: Yes ED Registration Date: 12/06/18 Care time: The patient presented to the Emergency Department on the above date and was hospitalized for further evaluation of their emergent condition. - New Patient This patient is new to me today: Yes Date on this admission: 12/06/18 - Critical Care Critical Care patient: Yes Total Critical Care Time (in minutes): 45 Critical Care Statement: The care of this patient involved high complexity decision making to prevent further life threatening deterioration of the patient 's condition and/or to evaluate & treat vital organ system(s) failure or risk of failure. ATTENDING PHYSICIAN STATEMENT I saw and evaluated the patient. I reviewed the resident's note and discussed the case with the resident. I agree with the resident's findings and plan as documented. SUBJECTIVE: OBJECTIVE: ASSESSMENT AND PLAN:
[2018-12-06] MEDS ORDERED: SODIUM CHLORIDE 1,000 ML IV STA (08:51)
[2018-12-06] MEDS ORDERED: SODIUM CHLORIDE 1,000 ML IV SCH (09:00)
--- NOTE | 2018-12-06 09:04 | PDOC ---
*Physical Exam - Vital Signs Last Vital Signs Temp Pulse Resp BP Pulse Ox 98.4 F 88 19 199/106 H 100 12/05/18 23:10 12/06/18 06:44 12/06/18 06:44 12/06/18 07:05 12/06/18 06:44 ED Treatment Course - LABORATORY CBC & Chemistry Diagram: 12/06/18 00:38 12/06/18 00:38 - ADDITIONAL ORDERS Additional order review: Laboratory Results 12/06/18 12/06/18 12/06/18 00:38 00:38 00:38 PT with INR 11.40 INR 0.97 Sodium Potassium Chloride Carbon Dioxide Anion Gap BUN Creatinine Est GFR (CKD-EPI)AfAm Est GFR (CKD-EPI)NonAf Random Glucose Lactic Acid 2.6 H* Calcium Phosphorus 4.6 Magnesium 1.8 Total Bilirubin AST ALT Alkaline Phosphatase Creatine Kinase 94 Troponin I 7.72 H* Total Protein Albumin Lipase 154 12/06/18 00:38 PT with INR INR Sodium 144 Potassium 4.7 Chloride 107 Carbon Dioxide 26 Anion Gap 11 BUN 59.5 H Creatinine 1.8 H Est GFR (CKD-EPI)AfAm 29.03 Est GFR (CKD-EPI)NonAf 25.04 Random Glucose 262 H Lactic Acid Calcium 8.3 L Phosphorus Magnesium Total Bilirubin 0.4 AST 45 H ALT 24 Alkaline Phosphatase 98 Creatine Kinase Troponin I Total Protein 6.8 Albumin 3.0 L Lipase 12/06/18 00:38 RBC 4.62 MCV 86.3 MCHC 31.5 L RDW 19.0 H MPV 8.7 Neutrophils % 88.6 H Lymphocytes % 5.0 L D Monocytes % 5.9 Eosinophils % 0.1 D Basophils % 0.4 - Medications Given in the ED: ED Medications Discontinued Medications Generic Name Dose Route Start Last Admin Trade Name Freq PRN Reason Stop Dose Admin Acetaminophen 1,000 mg 12/05/18 23:45 12/06/18 01:02 Ofirmev Injection - IVPB 12/05/18 23:46 1,000 mg ONCE ONE Administration Aspirin 162 mg 12/06/18 01:40 12/06/18 01:54 Asa - PO 12/06/18 01:41 162 mg ONCE ONE Administration Aspirin 300 mg 12/06/18 01:53 12/06/18 01:59 Asa - UT 12/06/18 01:54 Not Given ONCE ONE Famotidine/Sodium Chloride 20 mg in 50 mls @ 100 mls/hr 12/05/18 23:45 01:12 Pepcid 20 Mg Premixed Ivpb - IVPB 12/06/18 00:14 100 mls/hr ONCE ONE Administration Sodium Chloride 1,000 mls @ 1,000 mls/hr 12/05/18 23:45 12/06/18 00:55 Normal Saline - IV 12/06/18 00:44 1,000 mls/hr ASDIR STA Administration Ceftriaxone Sodium 1,000 mg/ 50 mls @ 100 mls/hr 12/06/18 04:50 12/06/18 05: 18 Dextrose IVPB 12/06/18 05:19 100 mls/hr ONCE ONE Administration Linezolid 600 mg in 300 mls @ 300 mls/hr 12/06/18 06:43 12/06/18 08:40 Zyvox 600 Mg Premix Bag (Restricted To Id) - IVPB 12/06/18 07:42 300 mls/ hr ONCE ONE Administration Protocol Magnesium Sulfate 2 gm 12/06/18 07:00 12/06/18 07:45 Magnesium Sulfate IVPB 12/06/18 07:01 2 gm ONCE ONE Administration Metoprolol Tartrate 5 mg 12/06/18 07:06 12/06/18 07:05 Lopressor Injection - IVPUSH 12/06/18 07:07 5 mg ONCE ONE Administration Ondansetron HCl 4 mg 12/05/18 23:46 12/06/18 01:03 Zofran Injection IVPUSH 12/05/18 23:47 4 mg ONCE ONE Administration Medical Decision Making - Medical Decision Making 12/06/18 09:03 ICU consulted for declining mental status, increased oxygen and hypertensive emergency. ICU accepts pt Discharge - Discharge Information Clinical Impression/Diagnosis: NSTEMI (non-ST elevated myocardial infarction) Nausea and vomiting Qualifiers: Vomiting type: unspecified Vomiting Intractability: unspecified Qualified Code( s): R11.2 - Nausea with vomiting, unspecified Abdominal pain Qualifiers: Abdominal location: unspecified location Qualified Code(s): R10.9 - Unspecified abdominal pain Condition: Guarded - Follow up/Referral - Patient Discharge Instructions - Post Discharge Activity
[2018-12-06] MEDS ORDERED: hydrALAZINE HCL 20 MG/ML VIAL IVPUSH ONE (09:10)
[2018-12-06] MEDS ORDERED: ONDANSETRON 4 MG/2 ML VIAL IVPUSH PRN (10:56)
[2018-12-06] MEDS ORDERED: PANTOPRAZOLE SODIUM 40 MG VIAL IVPUSH SCH (11:00)
[2018-12-06] MEDS ORDERED: LINEZOLID 600 MG PREMIX BAG 600 MG/300 ML BAG IVPB SCH (11:00)
--- NOTE | 2018-12-06 11:57 | PN ---
Progress Note, Physician Chief Complaint: patient seen and examined lethargic responds to painful stimuli not opening her eyes admitted for change in mental status and abdominal pain elevated lactic acid and troponin now in icu - Current Medication List Current Medications: Active Medications Chlorhexidine Gluconate (Hibiclens For Decolonization -) 1 applic TP HS ERNIE Sodium Chloride (Normal Saline -) 1,000 mls @ 100 mls/hr IV ASDIR ERNIE Last Admin: 12/06/18 09:50 Dose: 100 mls/hr Ceftriaxone Sodium 1 gm/ (Dextrose) 50 mls @ 200 mls/hr IVPB DAILY ERINE; Protocol Linezolid (Zyvox 600 Mg Premix Bag (Restricted To Id) -) 600 mg in 300 mls @ 300 mls/hr IVPB Q12H ERNIE; Protocol Insulin Aspart (Novolog Vial Sliding Scale -) 1 vial SQ ACHS ERNIE; Protocol Mupirocin (Bactroban Ointment (For Decolonization) -) 1 applic NS BID ERNIE Stop: 12/11/18 21:59 Ondansetron HCl (Zofran Injection) 4 mg IVPUSH Q6H PRN PRN Reason: NAUSEA Pantoprazole Sodium (Protonix Iv) 40 mg IVPUSH DAILY ERNIE - Objective Vital Signs: Vital Signs Temperature 97 F L 12/06/18 10:45 Pulse Rate 82 12/06/18 10:45 Respiratory Rate 21 H 12/06/18 10:45 Blood Pressure 148/98 12/06/18 10:45 O2 Sat by Pulse Oximetry (%) 100 12/06/18 09:50 Constitutional: Yes: Calm, Thin Cardiovascular: Yes: Regular Rate and Rhythm, S1, S2 Respiratory: Yes: Diminished Gastrointestinal: Yes: Normal Bowel Sounds, Soft Extremities: Yes: Other Edema: No Integumentary: Yes: Other (decreased skin turgor,) Neurological: Yes: Lethargy, Other (upgoing plantars) Labs: CBC, BMP 12/06/18 00:38 12/06/18 00:38 INR, PTT INR 0.97 (0.83-1.09) 12/06/18 00:38 Problem List - Problems (1) Elevated troponin Assessment/Plan: icu monitoring trend troponin cardiology evaluation echo Code(s): R79.89 - OTHER SPECIFIED ABNORMAL FINDINGS OF BLOOD CHEMISTRY (2) Abnormal CT scan, head Assessment/Plan: neurology eval OTTO CT head mass effect obstructing lateral ventricle and non communicating hydrocephalus NPO ivf Code(s): R93.0 - ABNORMAL FINDINGS ON DX IMAGING OF SKULL AND HEAD, NEC (3) Sepsis Assessment/Plan: elevated lactic acid and inc wbc count- today lactic acid is normal VRE in urine started on empiric antibiotic ID consult isolation blood cultures pending Code(s): A41.9 - SEPSIS, UNSPECIFIED ORGANISM Assessment/Plan called daughter and son on chart and left message need to clarify the code status
--- NOTE | 2018-12-06 12:20 | PN ---
Teaching Attending Note Name of Resident: Edward Boggs ATTENDING PHYSICIAN STATEMENT I saw and evaluated the patient. I reviewed the resident's note and discussed the case with the resident. I agree with the resident's findings and plan as documented. SUBJECTIVE: Patient seen and examined in the ICU. Required Hydralazine for BP 210/130. Improved to 160/100. Mental status still remains altered. Non-specific movement with noxious stimuli. She cannot provide information. Noted (+) Troponin of 7. Cardiology recommended ASA and Plavix. No reports of seizure activity. CT Head: large area of decreased attenuation in the left cerebellum and vermis with swelling and mass effect and effacement of the 4th ventricle and shift toward the right. Intake & Output 12/03/18 12/04/18 12/05/18 12/06/18 23:59 23:59 23:59 23:59 Weight 110 lb 87 lb 4.8 oz Last Vital Signs Temp Pulse Resp BP Pulse Ox 97.5 F L 84 20 168/80 100 12/06/18 12:21 12/06/18 12:21 12/06/18 12:21 12/06/18 12:21 12/06/18 09:50 Active Medications Chlorhexidine Gluconate (Hibiclens For Decolonization -) 1 applic TP HS ERNIE Sodium Chloride (Normal Saline -) 1,000 mls @ 100 mls/hr IV ASDIR ERNIE Last Admin: 12/06/18 09:50 Dose: 100 mls/hr Ceftriaxone Sodium 1 gm/ (Dextrose) 50 mls @ 200 mls/hr IVPB DAILY ERNIE; Protocol Linezolid (Zyvox 600 Mg Premix Bag (Restricted To Id) -) 600 mg in 300 mls @ 300 mls/hr IVPB Q12H ERNIE; Protocol Insulin Aspart (Novolog Vial Sliding Scale -) 1 vial SQ ACHS ERNIE; Protocol Mupirocin (Bactroban Ointment (For Decolonization) -) 1 applic NS BID ERNIE Stop: 12/11/18 21:59 Ondansetron HCl (Zofran Injection) 4 mg IVPUSH Q6H PRN PRN Reason: NAUSEA Pantoprazole Sodium (Protonix Iv) 40 mg IVPUSH DAILY ERNIE GENERAL: lethargic, non-specific responds to painful stimuli HEAD: NC. ENT: pupils sluggish to light, conjuctiva clear ENT: dry mucous membranes. NECK: supple no JVD, LUNGS: dcrease breath sounds at the bases HEART: Sinys tachy , no MRG ABDOMEN: Soft, not distended, normoactive bowel sounds, no guarding, LOWER EXTREMITIES: 2+ pulses, warm, well-perfused. No calf tenderness. No peripheral edema. NEUROLOGICAL:lethargic, non-specific response to painful stimuli SKIN: Warm, dry, normal turgor Laboratory Results - last 24 hr 12/06/18 12/06/18 12/06/18 00:38 00:38 00:38 WBC 19.5 H RBC 4.62 Hgb 12.5 Hct 39.8 D MCV 86.3 MCH 27.2 MCHC 31.5 L RDW 19.0 H Plt Count 293 D MPV 8.7 Absolute Neuts (auto) 17.3 H Neutrophils % 88.6 H Lymphocytes % 5.0 L D Monocytes % 5.9 Eosinophils % 0.1 D Basophils % 0.4 Nucleated RBC % 0 PT with INR INR Anticoagulation Therapy Puncture Site ABG pH ABG pCO2 at Pt Temp ABG pO2 at Pt Temp ABG HCO3 ABG O2 Sat (Measured) ABG O2 Content ABG Base Excess Dov Test O2 Delivery Device Oxygen Flow Rate Vent Mode Vent Rate Mechanical Rate Pressure Support Vent Sodium 144 Potassium 4.7 Chloride 107 Carbon Dioxide 26 Anion Gap 11 BUN 59.5 H Creatinine 1.8 H Est GFR (CKD-EPI)AfAm 29.03 Est GFR (CKD-EPI)NonAf 25.04 Random Glucose 262 H Lactic Acid 2.6 H* Calcium 8.3 L Phosphorus Magnesium Total Bilirubin 0.4 AST 45 H ALT 24 Alkaline Phosphatase 98 Creatine Kinase Troponin I B-Natriuretic Peptide Total Protein 6.8 Albumin 3.0 L Lipase Urine Color Urine Appearance Urine pH Ur Specific [place] Urine Protein Urine Glucose (UA) Urine Ketones Urine Blood Urine Nitrite Urine Bilirubin Urine Urobilinogen Ur Leukocyte Esterase Urine WBC (Auto) Urine RBC (Auto) Urine Casts (Auto) U Epithel Cells (Auto) Urine Bacteria (Auto) 12/06/18 12/06/18 12/06/18 00:38 00:38 03:15 WBC RBC Hgb Hct MCV MCH MCHC RDW Plt Count MPV Absolute Neuts (auto) Neutrophils % Lymphocytes % Monocytes % Eosinophils % Basophils % Nucleated RBC % PT with INR 11.40 INR 0.97 Anticoagulation Therapy Puncture Site ABG pH ABG pCO2 at Pt Temp ABG pO2 at Pt Temp ABG HCO3 ABG O2 Sat (Measured) ABG O2 Content ABG Base Excess Dov Test O2 Delivery Device Oxygen Flow Rate Vent Mode Vent Rate Mechanical Rate Pressure Support Vent Sodium Potassium Chloride Carbon Dioxide Anion Gap BUN Creatinine Est GFR (CKD-EPI)AfAm Est GFR (CKD-EPI)NonAf Random Glucose Lactic Acid Calcium Phosphorus 4.6 Magnesium 1.8 Total Bilirubin AST ALT Alkaline Phosphatase Creatine Kinase 94 Troponin I 7.72 H* B-Natriuretic Peptide Total Protein Albumin Lipase 154 Urine Color Yellow Urine Appearance Turbid Urine pH 5.0 Ur Specific [place] 1.018 Urine Protein 3+ H Urine Glucose (UA) Negative Urine Ketones Negative Urine Blood 1+ H Urine Nitrite Negative Urine Bilirubin Negative Urine Urobilinogen 0.2 Ur Leukocyte Esterase 2+ H Urine WBC (Auto) 216 Urine RBC (Auto) 2 Urine Casts (Auto) 0 U Epithel Cells (Auto) 1.9 Urine Bacteria (Auto) 6328.7 12/06/18 12/06/18 12/06/18 04:00 06:52 07:13 WBC RBC Hgb Hct MCV MCH MCHC RDW Plt Count MPV Absolute Neuts (auto) Neutrophils % Lymphocytes % Monocytes % Eosinophils % Basophils % Nucleated RBC % PT with INR INR Anticoagulation Therapy No Result Required. Puncture Site Right radial ABG pH 7.46 H ABG pCO2 at Pt Temp 33.1 L ABG pO2 at Pt Temp 63.7 L ABG HCO3 23.2 ABG O2 Sat (Measured) 93.0 L ABG O2 Content 15.7 ABG Base Excess 0.4 Dov Test Positive O2 Delivery Device No Result Required. Oxygen Flow Rate Yes Vent Mode No Result Required. Vent Rate No Result Required. Mechanical Rate No Result Required. Pressure Support Vent No Result Required. Sodium Potassium Chloride Carbon Dioxide Anion Gap BUN Creatinine Est GFR (CKD-EPI)AfAm Est GFR (CKD-EPI)NonAf Random Glucose Lactic Acid 1.9 Calcium Phosphorus Magnesium Total Bilirubin AST ALT Alkaline Phosphatase Creatine Kinase 109 Troponin I 7.50 H* B-Natriuretic Peptide Total Protein Albumin Lipase Urine Color Urine Appearance Urine pH Ur Specific [place] Urine Protein Urine Glucose (UA) Urine Ketones Urine Blood Urine Nitrite Urine Bilirubin Urine Urobilinogen Ur Leukocyte Esterase Urine WBC (Auto) Urine RBC (Auto) Urine Casts (Auto) U Epithel Cells (Auto) Urine Bacteria (Auto) 12/06/18 07:20 WBC RBC Hgb Hct MCV MCH MCHC RDW Plt Count MPV Absolute Neuts (auto) Neutrophils % Lymphocytes % Monocytes % Eosinophils % Basophils % Nucleated RBC % PT with INR INR Anticoagulation Therapy Puncture Site ABG pH ABG pCO2 at Pt Temp ABG pO2 at Pt Temp ABG HCO3 ABG O2 Sat (Measured) ABG O2 Content ABG Base Excess Dov Test O2 Delivery Device Oxygen Flow Rate Vent Mode Vent Rate Mechanical Rate Pressure Support Vent Sodium Potassium Chloride Carbon Dioxide Anion Gap BUN Creatinine Est GFR (CKD-EPI)AfAm Est GFR (CKD-EPI)NonAf Random Glucose Lactic Acid Calcium Phosphorus Magnesium Total Bilirubin AST ALT Alkaline Phosphatase Creatine Kinase 58 Troponin I 6.77 H* B-Natriuretic Peptide 93716.0 H Total Protein Albumin Lipase Urine Color Urine Appearance Urine pH Ur Specific [place] Urine Protein Urine Glucose (UA) Urine Ketones Urine Blood Urine Nitrite Urine Bilirubin Urine Urobilinogen Ur Leukocyte Esterase Urine WBC (Auto) Urine RBC (Auto) Urine Casts (Auto) U Epithel Cells (Auto) Urine Bacteria (Auto) IMP: Multivessel: subacute/acute CVA: R/O Basilar artery thrombus Mass effect in the 4th ventricle CAD MS Probable demand ischemia HTN HPL Lupus by history DM Hypothyroidism R/O UTI PLAN: Neurology and Neurosurgery have been consulted and are pending SBP goal: < 200 Empiric ABX for UTI Follow cultures Mannitol ECHO Stop IVF Mechanical VTE prophylaxis Aspiration precautions HOB elevation D/W Neurosurgery: may benefit from tertiary care transfer for angiography/ embolectomy Low threshold for intubation Requires ICU monitoring Dr Arajuo Critical care time spent in reviewing chart, evaluating patient and formulating plan - 36 minutes.
[2018-12-06 12:24] VITALS: BMI 17.6
--- NOTE | 2018-12-06 12:42 | EKG ---
Test Reason : Blood Pressure : / mmHG Vent. Rate : 092 BPM Atrial Rate : 092 BPM P-R Int : 146 ms QRS Dur : 078 ms QT Int : 360 ms P-R-T Axes : 054 -46 030 degrees QTc Int : 445 ms SINUS RHYTHM WITH OCCASIONAL PREMATURE VENTRICULAR COMPLEXES AND PREMATURE ATRIAL COMPLEXES PULMONARY DISEASE PATTERN LEFT ANTERIOR FASCICULAR BLOCK ABNORMAL ECG WHEN COMPARED WITH ECG OF 06-DEC-2018 01:49, PREMATURE VENTRICULAR COMPLEXES ARE NOW PRESENT Confirmed by GERMAINE HUFF MD ([id number]) on 12/06/2018 12:42:14 PM Referred By: Confirmed By:GERMAINE HUFF MD
--- NOTE | 2018-12-06 12:45 | EKG ---
Test Reason : Blood Pressure : / mmHG Vent. Rate : 089 BPM Atrial Rate : 089 BPM P-R Int : 158 ms QRS Dur : 076 ms QT Int : 344 ms P-R-T Axes : 047 -37 010 degrees QTc Int : 418 ms SINUS RHYTHM WITH PREMATURE ATRIAL COMPLEXES LEFT AXIS DEVIATION NONSPECIFIC T WAVE ABNORMALITY ABNORMAL ECG Confirmed by GERMAINE HUFF MD ([id number]) on 12/06/2018 12:45:18 PM Referred By: Confirmed By:GERMAINE HUFF MD
--- NOTE | 2018-12-06 12:46 | EKG ---
Test Reason : Blood Pressure : / mmHG Vent. Rate : 094 BPM Atrial Rate : 094 BPM P-R Int : 150 ms QRS Dur : 066 ms QT Int : 346 ms P-R-T Axes : 021 -40 004 degrees QTc Int : 432 ms POOR DATA QUALITY, INTERPRETATION MAY BE ADVERSELY AFFECTED SINUS RHYTHM WITH PREMATURE ATRIAL COMPLEXES LEFT AXIS DEVIATION LOW VOLTAGE QRS NONSPECIFIC T WAVE ABNORMALITY ABNORMAL ECG WHEN COMPARED WITH ECG OF 26-NOV-2018 14:27, PREMATURE ATRIAL COMPLEXES ARE NOW PRESENT QUESTIONABLE CHANGE IN QRS DURATION Confirmed by GERMAINE HUFF MD ([id number]) on 12/06/2018 12:45:42 PM Referred By: Confirmed By:GERMAINE HUFF MD
[2018-12-06] MEDS ORDERED: MANNITOL 25% 12.5 GM/50 ML VIAL IVPB ONE (12:48)
[2018-12-06 13:21] LABS: BASO % 0.4 % (0-2.0); HEMATOCRIT 40.9 % (32.4-45.2); HEMOGLOBIN 12.7 GM/dL (10.7-15.3); LYMPH % 2.2 % (8-40); MCH 27.6 pg (25.7-33.7); MEAN CELL VOLUME 88.9 fl (80-96); MEAN PLT VOLUME 8.5 fl (7.5-11.1); MONO % 4.7 % (3.8-10.2); NEUT % 92.7 % (42.8-82.8); PLATELET COUNT 225 K/MM3 (134-434); WHITE BLOOD COUNT 20.9 K/mm3 (4.0-10.0)
[2018-12-06 13:48] LABS: BLOOD UREA NITROGEN 47.3 mg/dL (7-18); CALCIUM 8.3 mg/dL (8.5-10.1); CREATININE 1.5 mg/dL (0.55-1.3); POTASSIUM 4.3 mmol/L (3.5-5.1)
[2018-12-06] MEDS: INSULIN SLIDING SCALE (NOVOLOG) 1 VIAL SQ SCH ×3 (13:55→21:03)
--- NOTE | 2018-12-06 13:58 | PN ---
Progress Note (short form) - Note Progress Note: Communicated with Son, Guillermo Cotton, and daughter Eric Cotton on the phone regarding their mother, Ragini. They both expressed to me that they do not want any neuro-surgical intervention or any transfer to a different medical facility to manage their mother's acute stroke. They both expressed that their mother's wish is for Do not resuscitate/ do not intubate (DNR/DNI) and they do not want their mother to suffer. Both Guillermo and Eric stated that Guillermo is the healthcare proxy, although there are no forms in the physical chart. Dr. Graves and Dr. Vazquez were consulted.
--- NOTE | 2018-12-06 14:06 | PN ---
Progress Note (short form) - Note Progress Note: Case d/w [facility] neurosurgery team; at this time, do not recommend embolectomy. If procedure to be done, would go for external ventricular drain. Case also d/w [facility] stroke team who recommends neurosx intervention if pt were to be transferred. States that she would be accepted if that route was chosen. D/w Dr. Morales. At this time however, family has decided DNR/DNI and does not want transfer to facility.
--- NOTE | 2018-12-06 14:32 | CON.ID ---
Consult Consult Specialty:: infectious diseases Referred by:: Hospitalist Reason for Consultation:: uti - History of Present Illness Chief Complaint: abd pain History of Present Illness: patient cannot provide history because of her clinical condition now in icu history obtained from the charts and the notes 87 yo F w a pmh of CAD, RI, CVA, HTN, HLD, GERD, Lupus, chronic back pain, respiratory failure, hypothyroidism, and diabetes who was recently in this hospital with abdominal pain and had a cholecystectomy. comes back with abdominal pain, nausea, and vomiting from [facility]. The patient is not able to provide much history.patient has a recent history of stroke according to the notes and family patient was having abd pain pt in ED whas found to have UTI and hypertensive emergency with BP 200 Systolic an worsening in her mental status and was admitted to ICU according to the notes patient had 2 days history of N/V/Abdominal pain , loss of appetite and constipation. according to the family patient was interactive and after this abd pain patients condition has changed on work up patients wbc is quite high patient was started on cefriaxone - History Source History Provided By: Medical Record Limitations to Obtaining History: Clinical Condition - Past Medical History Cardio/Vascular: Yes: CHF (pt with dil pacreatic duct was waiting mrcp out pt never got to it), HTN, Other (perivardial cyst) Gastrointestinal: Yes: GERD, Other (ruq pain to deep palp) ...: No Musculoskeletal: Yes: Bursitis, Chronic low back pain Rheumatology: Yes: Lupus Endocrine: Yes: Diabetes Mellitus, Hypothyroidism - Past Surgical History Past Surgical History: Yes: None - Alcohol/Substance Use Hx Alcohol Use: No History of Substance Use: reports: None - Smoking History Smoking history: Former smoker Have you smoked in the past 12 months: No If you are a former smoker, when did you quit?: 25 years ago - Social History ADL: Independent History of Recent Travel: No Home Medications - Allergies Allergies/Adverse Reactions: Allergies Allergy/AdvReac Type Severity Reaction Status Date / Time No Known Allergies Allergy Verified 12/06/18 03:27 - Home Medications Home Medications: Ambulatory Orders Aspirin Coated [Ecotrin -] 81 mg PO DAILY tablet.ec 09/26/18 Furosemide [Lasix -] 20 mg PO ASDIR 11/05/18 Acetaminophen 650 mg PO Q6H PRN 11/21/18 Gabapentin 200 mg PO HS 11/21/18 Gabapentin [Neurontin -] 100 mg PO BID 11/21/18 Levothyroxine [Synthroid -] 75 mcg PO DAILY@0700 11/21/18 Lidocaine 5% Patch [Lidoderm -] 1 patch TP DAILY 11/21/18 Pantoprazole Sodium [Protonix] 40 mg PO DAILY 11/21/18 Polyethylene Glycol 3350 17 gm PO DAILY 11/21/18 Tamsulosin HCl 0.4 mg PO DAILY 11/21/18 Clopidogrel Bisulfate [Plavix -] 75 mg PO DAILY 30 Days #30 tablet 11/29/18 Insulin Sliding Scale [Novolog Vial Sliding Scale -] 1 vial SQ ACHS units 11/29 Metoprolol Tartrate [Lopressor -] 25 mg PO BID 30 Days #60 tablet 11/29/18 Rosuvastatin Calcium [Crestor] 20 mg PO DAILY #30 tablet 11/29/18 predniSONE [Deltasone -] 10 mg PO DAILY 30 Days #30 tablet 11/29/18 Review of Systems Unable to obtain ROS, reason: unable Physical Exam Vital Signs: Vital Signs Temperature 97.5 F L 12/06/18 12:21 Pulse Rate 91 H 12/06/18 14:00 Respiratory Rate 21 H 12/06/18 14:00 Blood Pressure 133/78 12/06/18 14:00 O2 Sat by Pulse Oximetry (%) 100 12/06/18 11:00 Constitutional: Yes: Other (failure to thrive) Eyes: Yes: Conjunctiva Clear Cardiovascular: Yes: Regular Rate and Rhythm Respiratory: Yes: Regular, On Nasal O2, Poor Air Entry (bases) Gastrointestinal: Yes: Normal Bowel Sounds, Soft Musculoskeletal: Yes: WNL Extremities: Yes: WNL Psychiatric: Yes: Alert Labs: CBC, BMP 12/06/18 12:44 12/06/18 12:44 Imaging - Results Chest X-ray: Report Reviewed, Image Reviewed Cat Scan: Report Reviewed, Image Reviewed Assessment/Plan Problem List - Problems (1) Elevated troponin Code(s): R79.89 - OTHER SPECIFIED ABNORMAL FINDINGS OF BLOOD CHEMISTRY (2) Abnormal CT scan, head Code(s): R93.0 - ABNORMAL FINDINGS ON DX IMAGING OF SKULL AND HEAD, NEC (3) Sepsis Code(s): A41.9 - SEPSIS, UNSPECIFIED ORGANISM cva cad mi htn hld dm leukocytosis r/o uti plan i am going to continue ceftriaxone wbc high is worrisome but might be due to conditions she came await for all cx supportive treatment rest as per icu close watch cc 45 min
--- NOTE | 2018-12-06 14:35 | CONSULT ---
Consult Consult Specialty:: Nephrology Reason for Consultation:: CKD - History of Present Illness Chief Complaint: sent in for abd pain and vomiting History of Present Illness: Pt is an 87 year old female with pmhx of cad, MA, CVA, HTN, HLD, lupus and CKD who was sent in from the [place] for vomiting and abd pain. She developed worsening mental status. I was called to evaluate her for elevated creatinine. She is lethargic and unable to give history. - History Source History Provided By: Medical Record - Past Medical History Cardio/Vascular: Yes: CHF (pt with dil pacreatic duct was waiting mrcp out pt never got to it), HTN, Other (perivardial cyst) Gastrointestinal: Yes: GERD, Other (ruq pain to deep palp) ...: No Musculoskeletal: Yes: Bursitis, Chronic low back pain Rheumatology: Yes: Lupus Endocrine: Yes: Diabetes Mellitus, Hypothyroidism - Past Surgical History Past Surgical History: Yes: None - Alcohol/Substance Use Hx Alcohol Use: No History of Substance Use: reports: None - Smoking History Smoking history: Former smoker Have you smoked in the past 12 months: No If you are a former smoker, when did you quit?: 25 years ago - Social History ADL: Independent History of Recent Travel: No Home Medications - Allergies Allergies/Adverse Reactions: Allergies Allergy/AdvReac Type Severity Reaction Status Date / Time No Known Allergies Allergy Verified 12/06/18 03:27 - Home Medications Home Medications: Ambulatory Orders Aspirin Coated [Ecotrin -] 81 mg PO DAILY tablet.ec 09/26/18 Furosemide [Lasix -] 20 mg PO ASDIR 11/05/18 Acetaminophen 650 mg PO Q6H PRN 11/21/18 Gabapentin 200 mg PO HS 11/21/18 Gabapentin [Neurontin -] 100 mg PO BID 11/21/18 Levothyroxine [Synthroid -] 75 mcg PO DAILY@0700 11/21/18 Lidocaine 5% Patch [Lidoderm -] 1 patch TP DAILY 11/21/18 Pantoprazole Sodium [Protonix] 40 mg PO DAILY 11/21/18 Polyethylene Glycol 3350 17 gm PO DAILY 11/21/18 Tamsulosin HCl 0.4 mg PO DAILY 11/21/18 Clopidogrel Bisulfate [Plavix -] 75 mg PO DAILY 30 Days #30 tablet 11/29/18 Insulin Sliding Scale [Novolog Vial Sliding Scale -] 1 vial SQ ACHS units 11/29 Metoprolol Tartrate [Lopressor -] 25 mg PO BID 30 Days #60 tablet 11/29/18 Rosuvastatin Calcium [Crestor] 20 mg PO DAILY #30 tablet 11/29/18 predniSONE [Deltasone -] 10 mg PO DAILY 30 Days #30 tablet 11/29/18 Family Medical History Family History: Unable to Obtain Review of Systems Unable to obtain ROS, reason: pt lethargic Physical Exam Vital Signs: Vital Signs Temperature 97.5 F L 12/06/18 12:21 Pulse Rate 91 H 12/06/18 14:00 Respiratory Rate 21 H 12/06/18 14:00 Blood Pressure 133/78 12/06/18 14:00 O2 Sat by Pulse Oximetry (%) 100 12/06/18 11:00 Constitutional: Yes: Calm Eyes: Yes: Conjunctiva Clear HENT: Yes: Atraumatic Neck: Yes: Supple Cardiovascular: Yes: S1, S2 Respiratory: Yes: On Nasal O2 Gastrointestinal: Yes: Soft Renal/: Yes: Incontinence Musculoskeletal: Yes: Muscle Weakness Edema: No Neurological: Yes: Lethargy Labs: CBC, BMP 12/06/18 12:44 12/06/18 12:44 Selected Entries 12/05/18 12/06/18 12/06/18 23:10 07:05 10:45 Blood Pressure 171/98 H 199/106 H 148/98 12/06/18 12/06/18 12/06/18 12:00 12:21 14:00 Blood Pressure 168/80 168/80 133/78 12/06/18 16:00 Blood Pressure 142/79 Imaging - Results Chest X-ray: Report Reviewed Cat Scan: Report Reviewed Problem List - Problems (1) CKD (chronic kidney disease) Code(s): N18.9 - CHRONIC KIDNEY DISEASE, UNSPECIFIED Assessment/Plan Current Medications Generic Name Dose Route Start Last Admin Trade Name Freq PRN Reason Stop Dose Admin Chlorhexidine Gluconate 1 applic 12/06/18 22:00 Hibiclens For Decolonization - TP HS ERNIE Sodium Chloride 1,000 mls @ 100 mls/hr 12/06/18 09:00 12/06/18 09:50 Normal Saline - IV 100 mls/hr ASDIR ERNIE Administration Ceftriaxone Sodium 1 gm/ 50 mls @ 200 mls/hr 12/07/18 10:00 Dextrose IVPB DAILY ERNIE Protocol Linezolid 600 mg in 300 mls @ 300 mls/hr 12/06/18 11:00 Zyvox 600 Mg Premix Bag (Restricted To Id) - IVPB Q12H ERNIE Protocol Insulin Aspart 1 vial 12/06/18 11:00 12/06/18 13:55 Novolog Vial Sliding Scale - SQ 10 units ACHS ERNIE Administration Protocol Mupirocin 1 applic 12/06/18 22:00 Bactroban Ointment (For Decolonization) - NS 12/11/18 21:59 BID ERNIE Ondansetron HCl 4 mg 12/06/18 10:56 Zofran Injection IVPUSH Q6H PRN NAUSEA Pantoprazole Sodium 40 mg 12/06/18 11:00 12/06/18 13:59 Protonix Iv IVPUSH 40 mg DAILY ERNIE Administration Impression positive troponin CKD H/O lupus proteinuria atrophic right kidney htn altered mental status cva Plan - renal function stable - cont supportive care - discussed with ICU team - follow neuro rec - can d/c fluids from renal perspective
[2018-12-06 14:36] LABS: ANISOCYTOSIS 1+; MACROCYTOSIS 0; PLATELET ESTIMATE NORMAL
--- NOTE | 2018-12-06 15:02 | CON.CARD ---
Consult Consult Specialty:: Cardiology - History of Present Illness Chief Complaint: Elevated TP. History of Present Illness: 87 F with ho SLE, CKD, CAD and hypothyroidism came to ER with abdominal discomfort and nausea. ECG showed no dynamic changes but noted to have elevated TP and negative CPK. She became altered and has increased intracranial pressure. An echocardiogram shows normal LV function with new RV dilation and hypokinesis and severe pulmonary HTN. She is unresponsive. Family has decided to make her DNR. - History Source History Provided By: Medical Record - Past Medical History Cardio/Vascular: Yes: CHF (pt with dil pacreatic duct was waiting mrcp out pt never got to it), HTN, Other (perivardial cyst) Gastrointestinal: Yes: GERD, Other (ruq pain to deep palp) ...: No Musculoskeletal: Yes: Bursitis, Chronic low back pain Rheumatology: Yes: Lupus Endocrine: Yes: Diabetes Mellitus, Hypothyroidism - Past Surgical History Past Surgical History: Yes: None - Alcohol/Substance Use Hx Alcohol Use: No History of Substance Use: reports: None - Smoking History Smoking history: Former smoker Have you smoked in the past 12 months: No If you are a former smoker, when did you quit?: 25 years ago - Social History ADL: Independent History of Recent Travel: No Home Medications - Allergies Allergies/Adverse Reactions: Allergies Allergy/AdvReac Type Severity Reaction Status Date / Time No Known Allergies Allergy Verified 12/06/18 03:27 - Home Medications Home Medications: Ambulatory Orders Aspirin Coated [Ecotrin -] 81 mg PO DAILY tablet.ec 09/26/18 Furosemide [Lasix -] 20 mg PO ASDIR 11/05/18 Acetaminophen 650 mg PO Q6H PRN 11/21/18 Gabapentin 200 mg PO HS 11/21/18 Gabapentin [Neurontin -] 100 mg PO BID 11/21/18 Levothyroxine [Synthroid -] 75 mcg PO DAILY@0700 11/21/18 Lidocaine 5% Patch [Lidoderm -] 1 patch TP DAILY 11/21/18 Pantoprazole Sodium [Protonix] 40 mg PO DAILY 11/21/18 Polyethylene Glycol 3350 17 gm PO DAILY 11/21/18 Tamsulosin HCl 0.4 mg PO DAILY 11/21/18 Clopidogrel Bisulfate [Plavix -] 75 mg PO DAILY 30 Days #30 tablet 11/29/18 Insulin Sliding Scale [Novolog Vial Sliding Scale -] 1 vial SQ ACHS units 11/29 Metoprolol Tartrate [Lopressor -] 25 mg PO BID 30 Days #60 tablet 11/29/18 Rosuvastatin Calcium [Crestor] 20 mg PO DAILY #30 tablet 11/29/18 predniSONE [Deltasone -] 10 mg PO DAILY 30 Days #30 tablet 11/29/18 Review of Systems Unable to obtain ROS, reason: Altered MS Vital Signs: Vital Signs Temperature 97.5 F L 12/06/18 12:21 Pulse Rate 91 H 12/06/18 14:00 Respiratory Rate 21 H 12/06/18 14:00 Blood Pressure 133/78 12/06/18 14:00 O2 Sat by Pulse Oximetry (%) 100 12/06/18 11:00 Constitutional: Yes: No Distress, Calm, Cachectic Eyes: Yes: Conjunctiva Clear, EOM Intact HENT: Yes: Atraumatic, Normocephalic Neck: Yes: Supple, Trachea Midline Respiratory: Yes: Regular, CTA Bilaterally Gastrointestinal: Yes: Normal Bowel Sounds Cardiovascular: Yes: Regular Rate and Rhythm JVD: No Carotid Bruit: No Heart Sounds: Yes: S1, S2 Edema: No - Other Data Labs, Other Data: CBC, BMP 12/06/18 12:44 12/06/18 12:44 INR, PTT INR 0.97 (0.83-1.09) 12/06/18 00:38 Troponin, BNP 12/06/18 12/06/18 12/06/18 00:38 04:00 07:20 Troponin I 7.72 H* 7.50 H* 6.77 H* B-Natriuretic Peptide 36359.0 H Troponin, BNP 12/06/18 12/06/18 12/06/18 00:38 04:00 07:20 Troponin I 7.72 H* 7.50 H* 6.77 H* B-Natriuretic Peptide 52640.0 H Echo: Report Reviewed Ejection Fraction %: LVEF > or = 40 % Imaging - Results Chest X-ray: Report Reviewed Cat Scan: Report Reviewed Problem List - Problems (1) Elevated troponin Code(s): R79.89 - OTHER SPECIFIED ABNORMAL FINDINGS OF BLOOD CHEMISTRY Assessment/Plan Increased IC pressure with mass effect. Acute pulmonary HTN resulting in severe RV dilation and hypokinesis. subacute Myocardial injury possibly occurred prior to her admission. Possibly demand mediated Suspect possible PE given echo findings. Unlikely to have ACS. Continue BP control. No further cardiac recs at this time. Will see as needed.
--- NOTE | 2018-12-06 15:26 | ECHO ---
Name: TAI FERNANDEZ Exam:Adult Echocardiogram Study Date: 12/06/2018 01:50 PM Age: 87 yrs Reason For Study: LVEF Height: 59 in Weight: 110 lb BSA: 1.4 m2 MMode/2D Measurements & Calculations IVSd: 1.1 cm Ao root diam: 2.8 cm LVIDd: 3.8 cm LA dimension: 4.0 cm LVIDs: 2.9 cm LVPWd: 0.92 cm EDV(Teich): 61.7 ml LVOT diam: 2.0 cm ESV(Teich): 31.5 ml LAV (MOD-bp): 65.0 ml Doppler Measurements & Calculations MV E max irma: 53.3 cm/sec Ao V2 max: 170.1 cm/sec MV A max irma: 106.6 cm/sec Ao max P.6 mmHg MV E/A: 0.50 AI P1/2t: 477.2 msec MV dec time: 0.16 sec AJ(V,D): 1.5 cm2 AI max irma: 341.1 cm/sec LV V1 max P.9 mmHg AI max P.2 mmHg LV V1 max: 84.9 cm/sec AI dec slope: 209.4 cm/sec2 MR max irma: 611.6 cm/sec TR max irma: 454.3 cm/sec MR max P.9 mmHg TR max P.7 mmHg PA V2 max: 142.5 cm/sec PI end-d irma: 164.9 cm/sec PA max P.1 mmHg Left Ventricle There is mild concentric left ventricular hypertrophy. Left ventricular systolic function is grossly normal. Ejection Fraction = 50-55%. Right Ventricle The right ventricle is moderate to severely dilated. The right ventricular systolic function is sever sarah reduced. Atria The left atrium is mildly dilated. The right atrium is mildly dilated. Mitral Valve There is mild mitral annular calcification. There is no mitral valve stenosis. There is mild to moder ate mitral regurgitation. Tricuspid Valve The tricuspid valve is normal in structure and function. There is moderate tricuspid regurgitation. T here is severe pulmonary hypertension. Right ventricular systolic pressure is elevated at >60mmHg. Aortic Valve There is mild aortic sclerosis.;. No hemodynamically significant valvular aortic stenosis. Mild aorti c regurgitation. Pulmonic Valve The pulmonic valve is not well seen, but is grossly normal. There is no pulmonic valvular stenosis. M ild pulmonic valvular regurgitation. Great Vessels The aortic root is normal size. Interpretation Summary The right ventricle is moderate to severely dilated. The right ventricular systolic function is severely reduced. There is moderate tricuspid regurgitation. There is severe pulmonary hypertension. Right ventricular systolic pressure is elevated at >60mmHg. There is mild concentric left ventricular hypertrophy. Left ventricular systolic function is grossly normal. The left atrium is mildly dilated. There is mild mitral annular calcification. There is mild to moderate mitral regurgitation. There is mild aortic sclerosis.; Mild aortic regurgitation. MD Rosas *Demi 12/06/2018 02:53 PM
--- NOTE | 2018-12-06 17:25 | CONSULT ---
Consult - text type - Consultation Consultation Note: NEUROLOGY CONSULTATION is greatly appreciated: Events reviewed and discussed with ICU residents. 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 right parietal CVA. CT Angio helped define the situation indicating severe posterior fossa atheromatous disease including a long stretch of mid-Basilaar stenosis and left Posterior cerebral artery ischemia. Now returned from [facility] with depressed LOC, Lactic acidosis and Urinary WBC> 200. Now on ceftriaxone. CT of head (reviewed and compared to prior studies): Well-defined left occipitaoparietal CVA, R parietal CVA, and B/L cerebellar CVA's with increased swelling of the left cerebellar stroke and minimal left -> right shift of the fourth ventrical. Diffuse atrophy with ex vacuo ventricular enlargement. ERLINDA: Neg Kernigs. Unresponsive to name. Sternal pressure causes decorticate posturing on the left and semipurposeful movement on the right. No response to visual threat. PE3RR Full EOM's Doll's head. Corneals +/+ Increased tone L>R. Brisk reflexes. B/L Babinskis Withdrws right side to pinch but not left. IMP: Severe B/L cerebral dysfunction (R>L). Cannot r/o extension of brainstem ischemia. Consider completion of Basilar artery occlusion. Doubt Herniation but cannot exclude. Toxic- metabolic encephalopathy due to UTI/Urosepsis. SUGGEST: Continue antibiotics, gentle hydration and supportive care. Repeat CT of head in AM to compare ventricles and notify neurosurgery in "hydrocephalus" worsens. No specific stroke Rx at this time. Prognosis grave. Thank you very much, Imtiaz Vazquez MD
[2018-12-06 19:21] LABS: EPI CELLS 1.2 /HPF (0-5/HPF); HYALINE CASTS 4 /lpf (0-8); PH,URINE 5.5 (5.0-8.0); URINE APPEARANCE TURBID; URINE BACTERIA 244.3 /hpf (NEGATIVE); URINE BILIRUBIN NEGATIVE (NEGATIVE); URINE COLOR YELLOW; URINE GLUCOSE (UA) 2+ (NEGATIVE); URINE KETONE NEGATIVE (NEGATIVE); URINE LEUK ESTERASE 2+ (NEGATIVE); URINE NITRITE POSITIVE (NEGATIVE); URINE PROTEIN 3+ (NEGATIVE); URINE RBC 40 /hpf (0-4); URINE UROBILINOGEN 0.2 mg/dL (0.2-1.0); URINE WBC 847 /hpf (0-5)
[2018-12-06 19:32] LABS: YEAST NEGATIVE (NEGATIVE)
[2018-12-06] MEDS: MANNITOL 25% 12.5 GM/50 ML VIAL IVPB SCH (19:32)
[2018-12-06] MEDS: CHLORHEXIDINE GLUCONATE 4% CLEANSER FOR DECOLONIZATION TP SCH (21:04)
[2018-12-06] MEDS ORDERED: ACETAMINOPHEN 1000 MG/100 ML VIAL (NON FORMULARY) IVPB PRN (21:52)
[2018-12-06] MEDS: MUPIROCIN 2% TOPICAL OINTMENT FOR DECOLONIZATION NS SCH (21:52)
--- NOTE | 2018-12-07 00:36 | PN ---
Progress Note (short form) - Note Progress Note: Pt's son and daughter visited [facility]. Family expressed wishes again for DNR/ DNI. They inquired about comfort care and expressed that they would like to pursue comfort care. They asked to discontinue Antibiotics, feeds, and no blood draws.
[2018-12-07] MEDS: MANNITOL 25% 12.5 GM/50 ML VIAL IVPB SCH ×3 (01:02→18:43)
[2018-12-07] MEDS: INSULIN SLIDING SCALE (NOVOLOG) 1 VIAL SQ SCH ×4 (06:17→22:31)
--- NOTE | 2018-12-07 08:17 | PN ---
Progress Note (short form) - Note Progress Note: PULM/CCM Patient seen and examined in the ICU. Remains obtunded. Pt's son and daughter visited the ICU O/N & requested DNR/DNI - [employer]. They inquired about comfort care and expressed that they would like to pursue comfort care. They asked to discontinue Antibiotics, feeds, and no blood draws. Active Medications Acetaminophen (Ofirmev Injection -) 650 mg IVPB Q6H PRN PRN Reason: FEVER Last Admin: 12/06/18 22:00 Dose: 650 mg Chlorhexidine Gluconate (Hibiclens For Decolonization -) 1 applic TP HS [facility] Last Admin: 12/06/18 21:04 Dose: 1 applic Insulin Aspart (Novolog Vial Sliding Scale -) 1 vial SQ ACHS [facility]; Protocol Last Admin: 12/07/18 18:43 Dose: Not Given Mannitol (Osmitrol -) 12.5 gm IVPB Q8H-IV ERNIE Last Admin: 12/07/18 18:43 Dose: Not Given Mupirocin (Bactroban Ointment (For Decolonization) -) 1 applic NS BID [facility] Stop: 12/11/18 21:59 Last Admin: 12/07/18 10:00 Dose: 1 applic Ondansetron HCl (Zofran Injection) 4 mg IVPUSH Q6H PRN PRN Reason: NAUSEA Pantoprazole Sodium (Protonix Iv) 40 mg IVPUSH DAILY [facility] Last Admin: 12/06/18 13:59 Dose: 40 mg Vital Signs Period Temp Pulse Resp BP Sys/Lovell Pulse Ox Last 24 Hr 99 F-100.1 F 94-119 18-26 146-165/71-99 97-97 Intake & Output 12/04/18 12/05/18 12/06/18 12/07/18 23:59 23:59 23:59 23:59 Intake Total 1100 220 Output Total 700 380 Balance 400 -160 Weight 49.895 kg 39.599 kg 39.599 kg GENERAL: lethargic, non-specific response to painful stimuli HEAD: NCAT. ENT: pupils sluggish to light, conjuctiva clear ENT: Dry MM NECK: supple no JVD, LUNGS: decreased breath sounds at the bases HEART: nml S1 S2, RR, unable to appreciate any G/M/R ABDOMEN: Soft, not distended, normoactive bowel sounds, no guarding, LOWER EXTREMITIES: 2+ pulses, warm, well-perfused. No calf tenderness. No peripheral edema. NEUROLOGICAL:lethargic, non-specific response to painful stimuli SKIN: Warm, dry, normal turgor CBC, BMP 12/06/18 12:44 12/06/18 12:44 Microbiology 12/06/18 03:15 Urine - Urine - Catheterized Urine Culture - Preliminary Lactose Fermenting Neg Bacilli Lactose Fermenting Neg Bacilli#2 Group D Strep Or Entero Coccus 12/06/18 06:55 Blood - Peripheral Venous Blood Culture - Preliminary NO GROWTH OBTAINED AFTER 24 HOURS, INCUBATION TO CONTINUE FOR 4 DAYS. 12/06/18 06:50 Blood - Peripheral Venous Blood Culture - Preliminary NO GROWTH OBTAINED AFTER 24 HOURS, INCUBATION TO CONTINUE FOR 4 [address]YS. IMAGING TO NOTE: CT Head: large area of decreased attenuation in the left cerebellum and vermis with swelling and mass effect and effacement of the 4th ventricle and shift toward the right. ASSESS: End Of Life Multivessel: subacute/acute CVA: R/O Basilar artery thrombus Mass effect in the 4th ventricle CAD RI Probable demand ischemia HTN HL Lupus by history DM Hypothyroidism R/O UTI PLAN: Aspiration precautions HOB elevation D/c Abx D/c Feeds D/c ALL Blood Draws Palliative analgo-sedation prn DNR/DNI [facility] ICU PULM/CCM [id number]
--- NOTE | 2018-12-07 09:35 | CONSULT ---
Consult Consult Specialty:: Podiatry Reason for Consultation:: Pretrophic heels - History Source History Provided By: Medical Record - Past Medical History Cardio/Vascular: Yes: CHF (pt with dil pacreatic duct was waiting mrcp out pt never got to it), HTN, Other (perivardial cyst) Gastrointestinal: Yes: GERD, Other (ruq pain to deep palp) ...: No Musculoskeletal: Yes: Bursitis, Chronic low back pain Rheumatology: Yes: Lupus Endocrine: Yes: Diabetes Mellitus, Hypothyroidism - Past Surgical History Past Surgical History: Yes: None - Alcohol/Substance Use Hx Alcohol Use: No History of Substance Use: reports: None - Smoking History Smoking history: Former smoker Have you smoked in the past 12 months: No If you are a former smoker, when did you quit?: 25 years ago - Social History ADL: Independent History of Recent Travel: No Home Medications - Allergies Allergies/Adverse Reactions: Allergies Allergy/AdvReac Type Severity Reaction Status Date / Time No Known Allergies Allergy Verified 12/06/18 03:27 - Home Medications Home Medications: Ambulatory Orders Aspirin Coated [Ecotrin -] 81 mg PO DAILY tablet.ec 09/26/18 Furosemide [Lasix -] 20 mg PO ASDIR 11/05/18 Acetaminophen 650 mg PO Q6H PRN 11/21/18 Gabapentin 200 mg PO HS 11/21/18 Gabapentin [Neurontin -] 100 mg PO BID 11/21/18 Levothyroxine [Synthroid -] 75 mcg PO DAILY@0700 11/21/18 Lidocaine 5% Patch [Lidoderm -] 1 patch TP DAILY 11/21/18 Pantoprazole Sodium [Protonix] 40 mg PO DAILY 11/21/18 Polyethylene Glycol 3350 17 gm PO DAILY 11/21/18 Tamsulosin HCl 0.4 mg PO DAILY 11/21/18 Clopidogrel Bisulfate [Plavix -] 75 mg PO DAILY 30 Days #30 tablet 11/29/18 Insulin Sliding Scale [Novolog Vial Sliding Scale -] 1 vial SQ ACHS units 11/29 Metoprolol Tartrate [Lopressor -] 25 mg PO BID 30 Days #60 tablet 11/29/18 Rosuvastatin Calcium [Crestor] 20 mg PO DAILY #30 tablet 11/29/18 predniSONE [Deltasone -] 10 mg PO DAILY 30 Days #30 tablet 11/29/18 Physical Exam Vital Signs: Vital Signs Temperature 99 F 12/07/18 06:00 Pulse Rate 98 H 12/07/18 06:00 Respiratory Rate 18 12/07/18 06:00 Blood Pressure 158/84 12/07/18 06:00 O2 Sat by Pulse Oximetry (%) 97 12/06/18 19:44 Extremities: Yes: Other (+pretrophic heels b/l, -open wounds,) Labs: CBC, BMP 12/06/18 12:44 12/06/18 12:44 Assessment/Plan pretrophic heels b/l Heel pads B/L. Will follow till dc.
[2018-12-07] MEDS: MUPIROCIN 2% TOPICAL OINTMENT FOR DECOLONIZATION NS SCH ×2 (10:00→22:32)
[2018-12-07] MEDS ORDERED: CEFTRIAXONE 1 GM in DEXTROSE 5%-WATER - 50 ML IVPB SCH (10:00)
--- NOTE | 2018-12-07 10:52 | PN ---
Progress Note, Physician - Current Medication List Current Medications: Active Medications Acetaminophen (Ofirmev Injection -) 650 mg IVPB Q6H PRN PRN Reason: FEVER Last Admin: 12/06/18 22:00 Dose: 650 mg Chlorhexidine Gluconate (Hibiclens For Decolonization -) 1 applic TP HS ERNIE Last Admin: 12/06/18 21:04 Dose: 1 applic Insulin Aspart (Novolog Vial Sliding Scale -) 1 vial SQ ACHS [facility]; Protocol Last Admin: 12/07/18 06:17 Dose: Not Given Mannitol (Osmitrol -) 12.5 gm IVPB Q8H-IV ERNIE Last Admin: 12/07/18 01:02 Dose: Not Given Mupirocin (Bactroban Ointment (For Decolonization) -) 1 applic NS BID [facility] Stop: 12/11/18 21:59 Last Admin: 12/06/18 21:52 Dose: 1 applic Ondansetron HCl (Zofran Injection) 4 mg IVPUSH Q6H PRN PRN Reason: NAUSEA Pantoprazole Sodium (Protonix Iv) 40 mg IVPUSH DAILY [facility] Last Admin: 12/06/18 13:59 Dose: 40 mg - Objective Vital Signs: Vital Signs Temperature 99 F 12/07/18 06:00 Pulse Rate 98 H 12/07/18 06:00 Respiratory Rate 18 12/07/18 06:00 Blood Pressure 158/84 12/07/18 06:00 O2 Sat by Pulse Oximetry (%) 97 12/06/18 19:44 Labs: CBC, BMP 12/06/18 12:44 12/06/18 12:44 INR, PTT INR 0.97 (0.83-1.09) 12/06/18 00:38 Problem List - Problems (1) Elevated troponin Assessment/Plan: icu monitoring trend troponin cardiology evaluation echo Code(s): R79.89 - OTHER SPECIFIED ABNORMAL FINDINGS OF BLOOD CHEMISTRY (2) CVA (cerebral vascular accident) Assessment/Plan: neurology eval appreciated OTTO CT head mass effect obstructing lateral ventricle and non communicating hydrocephalus NPO ivf Code(s): I63.9 - CEREBRAL INFARCTION, UNSPECIFIED (3) Sepsis Assessment/Plan: elevated lactic acid and inc wbc count- today lactic acid is normal VRE in urine started on empiric antibiotic ID consult isolation blood cultures pending Microbiology 12/06/18 03:15 Urine - Urine - Catheterized Urine Culture - Preliminary Lactose Fermenting Neg Bacilli Lactose Fermenting Neg Bacilli#2 Group D Strep Or Entero Coccus 12/06/18 06:55 Blood - Peripheral Venous Blood Culture - Preliminary NO GROWTH OBTAINED AFTER 24 HOURS, INCUBATION TO CONTINUE FOR 4 DAYS. 12/06/18 06:50 Blood - Peripheral Venous Blood Culture - Preliminary NO GROWTH OBTAINED AFTER 24 HOURS, INCUBATION TO CONTINUE FOR 4 DAYS. Code(s): A41.9 - SEPSIS, UNSPECIFIED ORGANISM
[2018-12-07] MEDS ORDERED: PIPERACILLIN/TAZOB 2.25 GM 2.25 GM in DEXTROSE 5%-WATER - 50 ML IVPB SCH (11:45)
--- NOTE | 2018-12-07 11:47 | PN ---
Progress Note, Physician History of Present Illness: patient continues to be lethargic on face mask - Current Medication List Current Medications: Active Medications Acetaminophen (Ofirmev Injection -) 650 mg IVPB Q6H PRN PRN Reason: FEVER Last Admin: 12/06/18 22:00 Dose: 650 mg Chlorhexidine Gluconate (Hibiclens For Decolonization -) 1 applic TP HS [facility] Last Admin: 12/06/18 21:04 Dose: 1 applic Insulin Aspart (Novolog Vial Sliding Scale -) 1 vial SQ ACHS [facility]; Protocol Last Admin: 12/07/18 06:17 Dose: Not Given Mannitol (Osmitrol -) 12.5 gm IVPB Q8H-IV ERNIE Last Admin: 12/07/18 01:02 Dose: Not Given Mupirocin (Bactroban Ointment (For Decolonization) -) 1 applic NS BID [facility] Stop: 12/11/18 21:59 Last Admin: 12/06/18 21:52 Dose: 1 applic Ondansetron HCl (Zofran Injection) 4 mg IVPUSH Q6H PRN PRN Reason: NAUSEA Pantoprazole Sodium (Protonix Iv) 40 mg IVPUSH DAILY [facility] Last Admin: 12/06/18 13:59 Dose: 40 mg - Objective Vital Signs: Vital Signs Temperature 99 F 12/07/18 06:00 Pulse Rate 98 H 12/07/18 06:00 Respiratory Rate 18 12/07/18 06:00 Blood Pressure 158/84 12/07/18 06:00 O2 Sat by Pulse Oximetry (%) 97 12/06/18 19:44 Constitutional: Yes: Other Cardiovascular: Yes: S1, S2 Respiratory: Yes: Regular, Other (on face mask) Gastrointestinal: Yes: Normal Bowel Sounds, Soft Musculoskeletal: Yes: WNL Extremities: Yes: WNL Neurological: Yes: Other Psychiatric: Yes: Other Labs: CBC, BMP 12/06/18 12:44 12/06/18 12:44 INR, PTT INR 0.97 (0.83-1.09) 12/06/18 00:38 Assessment/Plan Problem List - Problems (1) Elevated troponin Code(s): R79.89 - OTHER SPECIFIED ABNORMAL FINDINGS OF BLOOD CHEMISTRY (2) Abnormal CT scan, head Code(s): R93.0 - ABNORMAL FINDINGS ON DX IMAGING OF SKULL AND HEAD, NEC (3) Sepsis Code(s): A41.9 - SEPSIS, UNSPECIFIED ORGANISM cva cad mi htn hld dm leukocytosis r/o uti plan will change to zosyn cx results noted hydration rest as per the team cc 40 min
[2018-12-07] MEDS ORDERED: MORPHINE SULFATE 2 MG/ML VIAL IVPUSH PRN (20:51)
[2018-12-07] MEDS: CHLORHEXIDINE GLUCONATE 4% CLEANSER FOR DECOLONIZATION TP SCH (22:32)
[2018-12-07 22:52] VITALS: BP 130/100; PULSE 100; TEMP 99.9
--- NOTE | 2018-12-12 10:30 | DS ---
Physical Examination Vital Signs: Vital Signs Temperature 99.9 F H 12/07/18 22:00 Pulse Rate 100 H 12/07/18 22:00 Respiratory Rate 28 H 12/07/18 22:00 Blood Pressure 130/100 12/07/18 22:00 O2 Sat by Pulse Oximetry (%) 97 12/07/18 20:02 Labs: CBC, BMP 12/06/18 12:44 12/06/18 12:44 Discharge Summary Problems reviewed: Yes Reason For Visit: NON-ST ELEVATION MYOCARDIAL INFARCTION (NSTEMI) Hospital Course: CHIEF COMPLAINT: Abdominal Pain PCP: Cierra PAULINO (Dr. Auguste) HISTORY OF PRESENT ILLNESS: Thank you Dr. Auguste for allowing us to take part in the ongoing care of your patient. Overall, patient is a poor historian, so history is primarily obtained from what she could provide as well as from other sources including the ER. She presents for abdominal pain, but is found to have other significant laboratory abnormalities that indicate critical illness. Patient is a 87-year-old frail female who [facility] who presents with abdominal pain, the pain is diffuse, difficult to localize, not made better or worse with anything, she has not seen any other providers for this. She has a history of recent cholecystectomy, elevated troponin with CVA seen by Dr. 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 Furthermore, she has a complex medical history involving lupus, hypothyroidism, diabetes, multiple UTIs with multidrug resistant organisms seen by infectious disease in the past with recent culture positive for vancomycin-resistant enterococcus. Today her troponins found to be 7. It did slightly downtrend, but overall, the patient was stated by the emergency room to have no changes in her EKGs. I am still pending review of these studies at the current time as they were not currently available, I will addend the note when they are made available to review. Furthermore, the patient is noted to have had a recent echocardiogram with normal left ventricular ejection from the peres and normal telemetry during the last admission. She has no recent stenting, she has no history of coronary artery disease documented in her chart. Her last admission she was started on Plavix, 20 of Crestor, twice daily metoprolol tartrate. She is on 10 daily of prednisone for her lupus patient admitted to ICU unresponsive, DNR DNI echo showed severe hypokinesis and had elevated troponin seen by ID oniv abx patient cardiac arrest and espired - Instructions Referrals: Caleb Auguste MD [Primary Care Provider] - Disposition: - Home Medications Comprehensive Discharge Medication List: Ambulatory Orders Aspirin Coated [Ecotrin -] 81 mg PO DAILY tablet.ec 09/26/18 Furosemide [Lasix -] 20 mg PO ASDIR 11/05/18 Acetaminophen 650 mg PO Q6H PRN 11/21/18 Gabapentin 200 mg PO HS 11/21/18 Gabapentin [Neurontin -] 100 mg PO BID 11/21/18 Levothyroxine [Synthroid -] 75 mcg PO DAILY@0700 11/21/18 Lidocaine 5% Patch [Lidoderm -] 1 patch TP DAILY 11/21/18 Pantoprazole Sodium [Protonix] 40 mg PO DAILY 11/21/18 Polyethylene Glycol 3350 17 gm PO DAILY 11/21/18 Tamsulosin HCl 0.4 mg PO DAILY 11/21/18 Clopidogrel Bisulfate [Plavix -] 75 mg PO DAILY 30 Days #30 tablet 11/29/18 Insulin Sliding Scale [Novolog Vial Sliding Scale -] 1 vial SQ ACHS units 11/29 Metoprolol Tartrate [Lopressor -] 25 mg PO BID 30 Days #60 tablet 11/29/18 Rosuvastatin Calcium [Crestor] 20 mg PO DAILY #30 tablet 11/29/18 predniSONE [Deltasone -] 10 mg PO DAILY 30 Days #30 tablet 11/29/18
== END 2018-12-07 23:55 | disposition expired | DRG 871 ==
LOC: JER 22:59 → JERBED 12-06 02:52 → JICU 12-06 10:35
PROVIDERS: ADMIT Internal Medicine; ATTEND Family Medicine
DX: A41.51 Sepsis due to Escherichia coli [E. coli] (principal); I63.02 Cerebral infarction due to thrombosis of basilar artery; G93.41 Metabolic encephalopathy; E87.2 Acidosis; I24.8 Other forms of acute ischemic heart disease; I16.1 Hypertensive emergency; N39.0 Urinary tract infection, site not specified; R64 Cachexia; Z68.1 Body mass index [BMI] 19.9 or less, adult; N18.4 Chronic kidney disease, stage 4 (severe); N17.9 Acute kidney failure, unspecified; J96.10 Chronic respiratory failure, unspecified whether with hypoxia or hypercapnia; I13.0 Hypertensive heart and chronic kidney disease with heart failure and stage 1 through stage 4 chronic kidney disease, or unspecified chronic kidney disease; E11.9 Type 2 diabetes mellitus without complications; I25.10 Atherosclerotic heart disease of native coronary artery without angina pectoris; I50.9 Heart failure, unspecified; M32.9 Systemic lupus erythematosus, unspecified; D72.829 Elevated white blood cell count, unspecified; E03.9 Hypothyroidism, unspecified; K21.9 Gastro-esophageal reflux disease without esophagitis; E86.0 Dehydration; E78.5 Hyperlipidemia, unspecified
CPT/HCPCS: 36415; 36600; 70450-TC; 71045-TC-FY; 74176-TC; 80048; 80053; 81003; 82550; 82803; 82962; 83605; 83690; 83735; 83880; 84100; 84484; 85025; 85610; 87040; 87086; 87186; 93005; 93010; 93306-TC; 99285-25; J0131; J7030